=== PATIENT | female | born 1965 | race Caucasian/White ===

== ENCOUNTER → 2016-11-24 | Outpatient (CLI) | payer BC ==
[~2016-11-24] MED LIST: ASPI325T39 PO; CALC-214 PO; CAPT50TA PO; CLC100 PO; CLR10 PO; DLD25PCA IV; DRGTP25 TD; HYDR-5688 PO; LORA-741 PO; MRLP17 PO; MULT1TAB22 PO; NRV/10 PO; OMEP20CA9 PO; OPTOPS OPB; PRT40 PO; SNK PO; TRAM-10 PO; ULT50 PO; ZNTT/150 PO
[2016-11-24 16:23] LABS: BASO % 0.5 %; BASO ABS # 0.02 K/uL (0-0.2); COMPLETE YES; HEMATOCRIT 38.3 % (37-47); LYMPH % 39.7 %; LYMPH ABS # 1.76 K/uL (1.2-3.4); MEAN CORPUSCULAR HEMOGLOBIN 29.7 pg (25-34); MEAN CORPUSCULAR HGB CONC 33.7 g/dl (32-36); MEAN PLATELET VOLUME 9.1 fL (7.4-10.4); NEUT % 43.8 %; PLATELET COUNT 226 K/uL (130-400); RED BLOOD COUNT 4.35 M/uL (4.2-5.4); WHITE BLOOD COUNT 4.43 K/uL (4.8-10.8)
[2016-11-24 17:34] LABS: ALT/SGPT 33 U/L (12-78); AST/SGOT 23 U/L (15-37); BLOOD UREA NITROGEN 7 mg/dl (7-18); BUN/CREATININE RATIO 12.4 (10-20); CALCIUM 9.8 mg/dl (8.5-10.1); CARBON DIOXIDE 31 mmol/L (21-32); CHLORIDE 95 mmol/L (98-107); CREATININE 0.56 mg/dl (0.60-1.20); GLUCOSE 82 mg/dl (70-99); POTASSIUM 3.5 mmol/L (3.5-5.1); SODIUM 134 mmol/L (136-145)
[2016-11-24 17:37] LABS: ALB/GLOB RATIO 1.1 (0.9-2); ALKALINE PHOSPHATASE 121 U/L (45-117)
== END | disposition home or self-care (01) ==
LOC: C.LAB1850 15:35
PROVIDERS: ATTEND Obstetrics & Gynecology Gynecologic Oncology
DX: C57.01 Malignant neoplasm of right fallopian tube (principal)

== ENCOUNTER → 2016-12-01 | Outpatient (CLI) | payer BC ==
[2016-12-01 15:04] LABS: BASO % 0.2 %; BASO ABS # 0.01 K/uL (0-0.2); COMPLETE YES; EOS % 0.7 %; HEMATOCRIT 37.4 % (37-47); IG% 0.2 %; LYMPH % 41.4 %; MEAN CORPUSCULAR HEMOGLOBIN 29.7 pg (25-34); MEAN CORPUSCULAR HGB CONC 34.5 g/dl (32-36); MEAN PLATELET VOLUME 9.2 fL (7.4-10.4); MONO % 4.1 %; NEUT % 53.4 %; PLATELET COUNT 176 K/uL (130-400); RED BLOOD COUNT 4.35 M/uL (4.2-5.4); WHITE BLOOD COUNT 4.35 K/uL (4.8-10.8)
[2016-12-01 15:18] LABS: ALT/SGPT 29 U/L (12-78); BLOOD UREA NITROGEN 12 mg/dl (7-18); BUN/CREATININE RATIO 24.5 (10-20); CALCIUM 9.5 mg/dl (8.5-10.1); CARBON DIOXIDE 28 mmol/L (21-32); CHLORIDE 94 mmol/L (98-107); CREATININE 0.49 mg/dl (0.60-1.20); GLUCOSE 104 mg/dl (70-99); MAGNESIUM 1.7 mg/dl (1.8-2.4); POTASSIUM 3.2 mmol/L (3.5-5.1); SODIUM 132 mmol/L (136-145)
[2016-12-01 15:21] LABS: ALB/GLOB RATIO 1.1 (0.9-2); ALKALINE PHOSPHATASE 129 U/L (45-117); AST/SGOT 20 U/L (15-37)
== END | disposition home or self-care (01) ==
LOC: C.LAB1850 14:04
PROVIDERS: ATTEND Obstetrics & Gynecology Gynecologic Oncology
DX: C57.00 Malignant neoplasm of unspecified fallopian tube (principal)

== ENCOUNTER → 2016-12-08 | Outpatient (CLI) | payer BC ==
[2016-12-08 16:41] LABS: HEMATOCRIT 38.2 % (37-47); MEAN CELL VOLUME 85.8 fL (80-100); MEAN CORPUSCULAR HGB CONC 33.8 g/dl (32-36); MEAN PLATELET VOLUME 9.5 fL (7.4-10.4); PLATELET COUNT 170 K/uL (130-400); RED BLOOD COUNT 4.45 M/uL (4.2-5.4); WHITE BLOOD COUNT 3.83 K/uL (4.8-10.8)
[2016-12-08 16:58] LABS: ALT/SGPT 29 U/L (12-78); BLOOD UREA NITROGEN 11 mg/dl (7-18); BUN/CREATININE RATIO 20.4 (10-20); CALCIUM 9.1 mg/dl (8.5-10.1); CARBON DIOXIDE 31 mmol/L (21-32); CHLORIDE 95 mmol/L (98-107); CREATININE 0.54 mg/dl (0.60-1.20); GLUCOSE 83 mg/dl (70-99); MAGNESIUM 1.9 mg/dl (1.8-2.4); POTASSIUM 3.4 mmol/L (3.5-5.1); SODIUM 134 mmol/L (136-145)
[2016-12-08 17:01] LABS: ALB/GLOB RATIO 1.2 (0.9-2); ALKALINE PHOSPHATASE 125 U/L (45-117); AST/SGOT 19 U/L (15-37)
== END | disposition home or self-care (01) ==
LOC: C.LAB1850 15:48
PROVIDERS: ATTEND Obstetrics & Gynecology Gynecologic Oncology
DX: C57.00 Malignant neoplasm of unspecified fallopian tube (principal)

== ENCOUNTER → 2016-12-21 | Outpatient (CLI) | payer BC | END | disposition home or self-care (01) | LOC: C.LAB1850 14:21 | PROVIDERS: ATTEND Obstetrics & Gynecology Gynecologic Oncology | DX: C57.00 Malignant neoplasm of unspecified fallopian tube (principal) ==

== ENCOUNTER → 2016-12-22 | Outpatient (CLI) | payer BC ==
[2016-12-22 16:45] LABS: BASO % 0.2 %; BASO ABS # 0.01 K/uL (0-0.2); COMPLETE YES; EOS % 2.1 %; HEMATOCRIT 35.5 % (37-47); LYMPH % 48.4 %; LYMPH ABS # 2.03 K/uL (1.2-3.4); MEAN CELL VOLUME 86.4 fL (80-100); MEAN CORPUSCULAR HEMOGLOBIN 29.2 pg (25-34); MEAN CORPUSCULAR HGB CONC 33.8 g/dl (32-36); MEAN PLATELET VOLUME 9.3 fL (7.4-10.4); MONO % 15.8 %; NEUT % 33.5 %; PLATELET COUNT 124 K/uL (130-400); RED BLOOD COUNT 4.11 M/uL (4.2-5.4); WHITE BLOOD COUNT 4.19 K/uL (4.8-10.8)
[2016-12-22 17:08] LABS: ALT/SGPT 27 U/L (12-78); AST/SGOT 15 U/L (15-37); BLOOD UREA NITROGEN 10 mg/dl (7-18); BUN/CREATININE RATIO 16.9 (10-20); CALCIUM 9.3 mg/dl (8.5-10.1); CARBON DIOXIDE 28 mmol/L (21-32); CHLORIDE 99 mmol/L (98-107); CREATININE 0.58 mg/dl (0.60-1.20); GLUCOSE 91 mg/dl (70-99); MAGNESIUM 1.7 mg/dl (1.8-2.4); POTASSIUM 3.7 mmol/L (3.5-5.1); SODIUM 136 mmol/L (136-145)
[2016-12-22 17:10] LABS: ALB/GLOB RATIO 1.1 (0.9-2); ALKALINE PHOSPHATASE 113 U/L (45-117)
== END | disposition home or self-care (01) ==
LOC: C.LAB1850 15:37
PROVIDERS: ATTEND Obstetrics & Gynecology Gynecologic Oncology
DX: C57.00 Malignant neoplasm of unspecified fallopian tube (principal)

== ENCOUNTER → 2016-12-29 | Outpatient (CLI) | payer BC ==
[2016-12-29 16:39] LABS: HEMATOCRIT 36.4 % (37-47); MEAN CELL VOLUME 86.9 fL (80-100); MEAN CORPUSCULAR HEMOGLOBIN 29.4 pg (25-34); MEAN CORPUSCULAR HGB CONC 33.8 g/dl (32-36); MEAN PLATELET VOLUME 8.9 fL (7.4-10.4); PLATELET COUNT 187 K/uL (130-400); RED BLOOD COUNT 4.19 M/uL (4.2-5.4); WHITE BLOOD COUNT 3.24 K/uL (4.8-10.8)
[2016-12-29 16:45] LABS: ALT/SGPT 33 U/L (12-78); AST/SGOT 19 U/L (15-37); BLOOD UREA NITROGEN 11 mg/dl (7-18); BUN/CREATININE RATIO 20.5 (10-20); CALCIUM 9.3 mg/dl (8.5-10.1); CARBON DIOXIDE 31 mmol/L (21-32); CHLORIDE 97 mmol/L (98-107); CREATININE 0.54 mg/dl (0.60-1.20); GLUCOSE 89 mg/dl (70-99); MAGNESIUM 1.8 mg/dl (1.8-2.4); POTASSIUM 3.7 mmol/L (3.5-5.1); SODIUM 136 mmol/L (136-145)
[2016-12-29 16:47] LABS: ALB/GLOB RATIO 1.1 (0.9-2); ALKALINE PHOSPHATASE 126 U/L (45-117)
[2016-12-29 17:19] LABS: BASO % 0.6 %; BASO ABS # 0.02 K/uL (0-0.2); COMPLETE YES; EOS % 0.9 %; LYMPH % 59.3 %; LYMPH ABS # 1.92 K/uL (1.2-3.4); MONO % 5.9 %; NEUT % 33.3 %
== END | disposition home or self-care (01) ==
LOC: C.LAB1850 15:29
PROVIDERS: ATTEND Obstetrics & Gynecology Gynecologic Oncology
DX: C57.00 Malignant neoplasm of unspecified fallopian tube (principal)

== ENCOUNTER → 2017-01-18 | Outpatient (CLI) | payer BC | END | disposition home or self-care (01) | LOC: C.LAB1850 15:29 | PROVIDERS: ATTEND Obstetrics & Gynecology Gynecologic Oncology | DX: C57.00 Malignant neoplasm of unspecified fallopian tube (principal) ==

== ENCOUNTER → 2017-02-11 | Outpatient (CLI) | payer BC ==
--- NOTE | 2017-02-11 16:29 | MAMMOGRAPHY REPORT ---
BILATERAL DIGITAL SCREENING MAMMOGRAM TOMOSYNTHESIS WITH CAD: 02/11/2017 CLINICAL HISTORY: Routine screening. Patient has no complaints. TECHNIQUE: Breast tomosynthesis in addition to standard 2D mammography was performed. Current study was also evaluated with a Computer Aided Detection (CAD) system. COMPARISON: Comparison is made to exams dated: 02/04/2016 mammogram, 01/15/2015 mammogram, 01/11/2014 mammogram, 01/10/2013 mammogram, 12/10/2011 mammogram, and 11/16/2010 mammogram - [facility]. BREAST COMPOSITION: There are scattered areas of fibroglandular density in both breasts. FINDINGS: No suspicious masses, calcifications, or areas of architectural distortion are noted in e ither breast. There has been no significant interval change compared to prior exams. A biopsy marke r clip is again noted in the right medial breast. IMPRESSION: ACR BI-RADS CATEGORY 2: BENIGN There is no mammographic evidence of malignancy. A 1 year screening mammogram is recommended. The p atient will receive written notification of the results. Approximately 10% of breast cancers are not detected with mammography. A negative mammographic repor t should not delay biopsy if a clinically suggestive mass is present. Merry Gifford M.D. /:02/11/2017 14:08:41 Crane Rigger: Gayla Hill, [facility] letter sent: Normal 1/2 BI-RADS Code: ACR BI-RADS Category 2: Benign
== END | disposition home or self-care (01) ==
LOC: C.MAMM 13:38
PROVIDERS: ATTEND Obstetrics & Gynecology
DX: Z12.31 Encounter for screening mammogram for malignant neoplasm of breast (principal)

== ENCOUNTER → 2017-02-15 | Outpatient (CLI) | payer BC | END | disposition home or self-care (01) | LOC: C.LAB1850 15:31 | PROVIDERS: ATTEND Obstetrics & Gynecology Gynecologic Oncology | DX: C57.00 Malignant neoplasm of unspecified fallopian tube (principal) ==

== ENCOUNTER 2017-06-23 19:33 | Emergency (ER) | payer BC ==
[~2017-06-23] VITALS: Ht 167.6 cm; Wt 88.7 kg
[~2017-06-23 19:33] MED LIST changes: -CALC-214 PO; -CAPT50TA PO; -CLC100 PO; -DLD25PCA IV; -DRGTP25 TD; -HYDR-5688 PO; -MRLP17 PO; -MULT1TAB22 PO; -NRV/10 PO; -PRT40 PO; -SNK PO; -TRAM-10 PO; -ULT50 PO; -ZNTT/150 PO
[2017-06-23 19:34] VITALS: TEMP 36.8; Ht 167.6 cm; Wt 88.7 kg
[2017-06-23] MEDS ORDERED: SODIUM CHLORIDE 0.9% 1000ML 1,000 ML IV STA (19:56)
--- NOTE | 2017-06-23 20:03 | EMERGENCY ROOM VISIT NOTE ---
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 Patient states she has been having general abdominal pain for the past 3 weeks, her oncologist told her that she was developing fluid in her abdomen secondary to her cancer, and she is scheduled this Tuesday to have the fluid drained. The patient states that today she began to have worsening abdominal pain and feeling tired. She states she has been more constipated than usual and has not moved her bowels for 2 days, she attributes this to recently starting to take tramadol for pain, and she notes that she has not been taking any stool softeners. She denies any nausea or vomiting, but states she has no appetite and has not been eating or drinking much for the past few days. Patient states she called her oncologist today regarding her worsening pain, and they told her to go to the ER to to have a bowel obstruction ruled out. Patient denies any history of bowel instruction, but states she has had twisted bowel once before. She denies any fevers or chills, chest pain, shortness of breath, back pain, diarrhea, blood in the stool, dysuria or urinary frequency. Review of Systems A complete 10 point review of systems was reviewed with the patient with pertinent positives and negatives as per history of present illness. All else were negative. Past Medical/Surgical History Medical Problems: (1) Aneurysm (2) HTN (hypertension) Surgical Problems: (1) H/O tubal ligation Family History FH: HTN (hypertension) FH: cancer Social History Smoking Status: Never Smoker Marital Status: Housing Status: lives with family Occupation Status: employed Current/Historical Medications Scheduled Amlodipine Besylate (Amlodipine Besylate), 10 MG PO HS Calcium W/ Magnesium (Calcium & Magnesium), 1 TAB PO DAILY Captopril/Hctz (Capozide), 1 TAB PO BID Multiple Vitamins W/ Minerals (One Daily For Women), 1 TAB PO DAILY Ranitidine (Zantac), 150 MG PO BID Scheduled PRN Tramadol (Ultram), 50 MG PO Q4H PRN for Pain Physical Exam Vital Signs Date Time Temp Pulse Resp B/P (MAP) Pulse Ox O2 Delivery O2 Flow Rate FiO2 06/23/17 22:34 80 16 144/95 98 Room Air 06/23/17 19:34 36.8 110 18 143/87 96 Room Air Physical Exam CONSTITUTIONAL: No acute distress. Mildly dehydrated, but otherwise well appearing and well nourished. Alert and oriented X 4 with normal affect. HEENT: Normocephalic, atraumatic. Pupils equal, round and reactive to light, EOMI. TMs normal. Pharynx normal. Tacky mucous membranes. NECK: Supple, full active range of motion without discomfort. RESPIRATORY: Clear to auscultation bilaterally with no wheezing, crackles, rhonchi or stridor. Diminished in the bases. Equal expansion bilaterally. CARDIOVASCULAR: Regular rate and rhythm with no murmurs, rubs or gallops. Normal peripheral perfusion. No edema. GASTROINTESTINAL: Abdomen is diffusely tender, most tender in periumbilical area. No rebound tenderness, no guarding. Soft, mildly distended. Bowel sounds normal and present in all quadrants. No CVA tenderness. MUSCULOSKELETAL: Full range of motion of all joints without discomfort. INTEGUMENTARY: No rash or other significant dermatologic conditions noted. NEUROLOGIC: Cranial nerves II-XII grossly intact. No focal neurologic deficits noted. Medical Decision & Procedures ER Provider Diagnostic Interpretation: CT ABD/PELVIS IV AND ORAL CONT CLINICAL HISTORY: Acute abdominal pain. Possible small bowel obstruction. Follow-up in 2 carcinoma. COMPARISON STUDY: PET/CT scan dated 10/10/2016 TECHNIQUE: Following the IV administration of 116 mL of Optiray-320, CT scan of the abdomen and pelvis was performed from the lung bases to the proximal femurs. Images are reviewed in the axial, sagittal, and coronal planes. IV contrast was administered without complication. A dose lowering technique was utilized adhering to the principles of ALARA. CT DOSE: 771.51 mGy.cm FINDINGS: Lower chest: There is a right pleural effusion with associated right basilar atelectasis. There are minimal right basilar atelectatic changes. Liver: The contrast-enhanced liver is normal in size, contour, and attenuation. There is no intrahepatic biliary ductal dilatation. The hepatic veins and portal veins are patent. Gallbladder: Unremarkable. Spleen: Normal in size and attenuation. Pancreas: Unremarkable. Adrenal glands: Unremarkable. Kidneys: There is symmetric renal cortical enhancement. The kidneys are normal in size without hydronephrosis. Bowel: There are no transition zones to indicate bowel obstruction. Peritoneum: There is ascites. There is omental and peritoneal nodularity, consistent with extensive carcinomatosis. There is a small fat-containing ventral hernia containing soft tissue nodules suspicious for neoplastic foci. Vasculature: The abdominal aorta is normal in course and caliber. Adenopathy: None. Pelvic viscera: The uterus is surgically absent. There is pelvic peritoneal nodularity and thickening. Skeletal structures: No destructive osseous lesions are seen. IMPRESSION: 1. CT evidence of extensive abdominal carcinomatosis with ascites 2. No evidence of bowel obstruction. No evidence of free air 3. Right pleural effusion with right lower lobe atelectasis Laboratory Results 06/23/17 20:20 Red Blood Count 3.85, Mean Corpuscular Volume 88.8, Mean Corpuscular Hemoglobin 29.6, Mean Corpuscular Hemoglobin Concent 33.3, Mean Platelet Volume 8.5, Neutrophils (%) (Auto) 53.9, Lymphocytes (%) (Auto) 26.6, Monocytes (%) (Auto) 17.2, Eosinophils (%) (Auto) 1.6, Basophils (%) (Auto) 0.5, Neutrophils # (Auto ) 2.31, Lymphocytes # (Auto) 1.14, Monocytes # (Auto) 0.74, Eosinophils # (Auto ) 0.07, Basophils # (Auto) 0.02 06/23/17 20:20 Test 06/23/17 20:20 06/23/17 21:00 06/23/17 21:08 White Blood Count 4.29 K/uL (4.8-10.8) Red Blood Count 3.85 M/uL (4.2-5.4) Hemoglobin 11.4 g/dL (12.0-16.0) Hematocrit 34.2 % (37-47) Mean Corpuscular Volume 88.8 fL (80-100) Mean Corpuscular Hemoglobin 29.6 pg (25-34) Mean Corpuscular Hemoglobin Concent 33.3 g/dl (32-36) Platelet Count 252 K/uL (130-400) Mean Platelet Volume 8.5 fL (7.4-10.4) Neutrophils (%) (Auto) 53.9 % Lymphocytes (%) (Auto) 26.6 % Monocytes (%) (Auto) 17.2 % Eosinophils (%) (Auto) 1.6 % Basophils (%) (Auto) 0.5 % Neutrophils # (Auto) 2.31 K/uL (1.4-6.5) Lymphocytes # (Auto) 1.14 K/uL (1.2-3.4) Monocytes # (Auto) 0.74 K/uL (0.11-0.59) Eosinophils # (Auto) 0.07 K/uL (0-0.5) Basophils # (Auto) 0.02 K/uL (0-0.2) RDW Standard Deviation 45.2 fL (36.4-46.3) RDW Coefficient of Variation 13.8 % (11.5-14.5) Immature Granulocyte % (Auto) 0.2 % Immature Granulocyte # (Auto) 0.01 K/uL (0.00-0.02) Anion Gap 7.0 mmol/L (3-11) Est Creatinine Clear Calc Drug Dose 165.8 ml/min Estimated GFR () 133.6 Estimated GFR (Non- 115.2 BUN/Creatinine Ratio 18.1 (10-20) Calcium Level 8.9 mg/dl (8.5-10.1) Total Bilirubin 1.0 mg/dl (0.2-1) Direct Bilirubin 0.2 mg/dl (0-0.2) Aspartate Amino Transf (AST/SGOT) 19 U/L (15-37) Alanine Aminotransferase (ALT/SGPT) 26 U/L (12-78) Alkaline Phosphatase 105 U/L (45-117) Total Protein 6.8 gm/dl (6.4-8.2) Albumin 3.4 gm/dl (3.4-5.0) Lipase 69 U/L (73-393) Urine Color YELLOW Urine Appearance CLEAR (CLEAR) Urine pH 7.0 (4.5-7.5) Urine Specific [place] 1.006 (1.000-1.030) Urine Protein NEG (NEG) Urine Glucose (UA) NEG (NEG) Urine Ketones NEG (NEG) Urine Occult Blood NEG (NEG) Urine Nitrite NEG (NEG) Urine Bilirubin NEG (NEG) Urine Urobilinogen NEG (NEG) Urine Leukocyte Esterase NEG (NEG) Bedside Lactic Acid Venous 0.59 mmol/L (0.90-1.70) Medications Administered Medications (Trade) Dose Ordered Sig/Luci Route Start Time Stop Time Status Last Admin Dose Admin Sodium Chloride 1,000 ml @ 999 mls/hr Q1H1M STAT IV 06/23/17 19:56 06/23/17 20:56 DC 06/23/17 20:55 999 MLS/HR ECG Indication: abdominal pain, weakness Rate (beats per minute): 100 Rhythm: normal sinus Findings: no acute ischemic change, no ectopy Change: no significant change (when compared to previous EKG from 12/25/2003) Medical Decision CC: Patient presenting with complaint of abdominal pain Interpretation of Labs: Mild leukopenia, mild anemia, these appear at baseline, normal platelets, slight hyponatremia/hypochloremia, no other significant electrolyte abnormalities, normal renal function, normal liver enzymes and lipase, normal lactic acid. No UTI. Differential Diagnosis: Includes, but not limited to small bowel obstruction, adhesions, ileus, constipation, ascites, among others. Medication Reconciliation: I attest that I have personally reviewed the patient' s current medication list. Vital signs review: I reviewed the patient's vital signs and interpret them as follows: T: Afebrile; BP: Hypertensive; HR: Tachycardic, resolved on reassessment; RR: Within normal limits; Pulse Ox: Within normal limits on room air. Blood pressure screening: The patient was found to have an elevated blood pressure and was referred to their primary doctor for recheck and further treatment. Summary: Patient was evaluated at bedside, history of physical exam performed. Patient is alert and in no distress, resting calmly in the stretcher. Abdomen is soft, slightly distended with normal bowel sounds throughout. Diffusely tender to palpation. Patient also appears mildly dehydrated, and she does state she has not been drinking well yesterday or today. Per the patient, she is primarily here to rule out small bowel obstruction per request of her oncologist. She has no other significant complaints. Orders were placed at bedside for labs, UA, IV fluid bolus for hydration, CT abdomen and pelvis with IV and oral contrast to evaluate for small bowel obstruction. Patient discussed with Dr. Angulo, who agrees with my assessment and plan. Labs reviewed as above, appear consistent with baseline and no significant abnormalities. EKG shows normal sinus rhythm with no acute ischemic changes and unchanged from previous EKG. CT abdomen/pelvis negative for small bowel obstruction or any other acute finding. Patient reassessed multiple times throughout ED stay, she remains well appearing and in no distress. Tachycardia is resolved after IV fluids on reassessment. Patient updated on all results and plan for discharge home, and encouraged to keep her scheduled appointment on Tuesday with her oncologist. Patient given strict return precautions should her symptoms worsen, she verbalized understanding. Patient discharged home in stable condition ambulatory. Impression Primary Impression: Abdominal pain Departure Information Dispostion Home / Self-Care Condition GOOD Referrals Linda Stanley MD (PCP) Patient Instructions ED Constipation, My [facility] Additional Instructions You have been treated in the Emergency Department your Abdominal Pain. Laboratory results and imaging studies have ruled out any emergent causes for your abdominal pain which would warrant admission or surgery. You may continue taking your prescribed tramadol as needed for pain. You should take a stool softener such as Colace daily while you're taking the tramadol to help prevent constipation. If you become constipated, you may take MiraLAX once a day until your stools return to normal. Drink plenty of water and stay well hydrated. Keep your scheduled appointment on Tuesday, and follow closely with your PCP and oncologist regarding her symptoms. Return to the emergency department if your symptoms persist despite treatment plan outlined above or if the following symptoms occur: Severe worsening abdominal pain, fevers or chills, severe nausea or persistent vomiting, blood in your stool or urine, dizziness or passing out, or any other concerns. Problem Qualifiers Primary Impression: Abdominal pain Abdominal location: generalized Qualified Codes: R10.84 - Generalized abdominal pain
[2017-06-23] MEDS ORDERED: TRAM-10 PO (20:18)
[2017-06-23 20:30] LABS: BASO % 0.5 %; BASO ABS # 0.02 K/uL (0-0.2); COMPLETE YES; EOS % 1.6 %; HEMATOCRIT 34.2 % (37-47); IG% 0.2 %; LYMPH % 26.6 %; LYMPH ABS # 1.14 K/uL (1.2-3.4); MEAN CELL VOLUME 88.8 fL (80-100); MEAN CORPUSCULAR HEMOGLOBIN 29.6 pg (25-34); MEAN CORPUSCULAR HGB CONC 33.3 g/dl (32-36); MEAN PLATELET VOLUME 8.5 fL (7.4-10.4); MONO % 17.2 %; NEUT % 53.9 %; PLATELET COUNT 252 K/uL (130-400); RED BLOOD COUNT 3.85 M/uL (4.2-5.4); WHITE BLOOD COUNT 4.29 K/uL (4.8-10.8)
[2017-06-23 20:49] LABS: BUN/CREATININE RATIO 18.1 (10-20); CALCIUM 8.9 mg/dl (8.5-10.1); CREATININE 0.44 mg/dl (0.60-1.20); POTASSIUM 3.5 mmol/L (3.5-5.1)
[2017-06-23 21:20] LABS: URINE APPEARANCE CLEAR (CLEAR); URINE BILIRUBIN NEG (NEG); URINE COLOR YELLOW; URINE NITRITE NEG (NEG); URINE SPECIFIC GRAVITY 1.006 (1.000-1.030); UROBILINOGEN NEG (NEG); ZZUR CULT IF INDIC CLEAN CATCH NO
[2017-06-23 21:28] LABS: MANUAL MICROSCOPIC REQUIRED? NO; REVIEW REQ? NO
[2017-06-23] MEDS ORDERED: OPTIRAY 320 IV PRN (22:15)
--- NOTE | 2017-06-23 23:00 | DIAGNOSTIC IMAGING REPORT ---
CT ABD/PELVIS IV AND ORAL CONT CLINICAL HISTORY: Acute abdominal pain. Possible small bowel obstruction. Follow-up in 2 carcinoma. COMPARISON STUDY: PET/CT scan dated 10/10/2016 TECHNIQUE: Following the IV administration of 116 mL of Optiray-320, CT scan of the abdomen and pelvis was performed from the lung bases to the proximal femurs. Images are reviewed in the axial, sagittal, and coronal planes. IV contrast was administered without complication. A dose lowering technique was utilized adhering to the principles of ALARA. CT DOSE: 771.51 mGy.cm FINDINGS: Lower chest: There is a right pleural effusion with associated right basilar atelectasis. There are minimal right basilar atelectatic changes. Liver: The contrast-enhanced liver is normal in size, contour, and attenuation. There is no intrahepatic biliary ductal dilatation. The hepatic veins and portal veins are patent. Gallbladder: Unremarkable. Spleen: Normal in size and attenuation. Pancreas: Unremarkable. Adrenal glands: Unremarkable. Kidneys: There is symmetric renal cortical enhancement. The kidneys are normal in size without hydronephrosis. Bowel: There are no transition zones to indicate bowel obstruction. Peritoneum: There is ascites. There is omental and peritoneal nodularity, consistent with extensive carcinomatosis. There is a small fat-containing ventral hernia containing soft tissue nodules suspicious for neoplastic foci. Vasculature: The abdominal aorta is normal in course and caliber. Adenopathy: None. Pelvic viscera: The uterus is surgically absent. There is pelvic peritoneal nodularity and thickening. Skeletal structures: No destructive osseous lesions are seen. IMPRESSION: 1. CT evidence of extensive abdominal carcinomatosis with ascites 2. No evidence of bowel obstruction. No evidence of free air 3. Right pleural effusion with right lower lobe atelectasis Electronically signed by: Kervin Valdivia M.D. 06/23/2017 10:58 PM Dictated Date/Time: 06/23/2017 10:54 PM
[2017-06-23 23:23] VITALS: BP 137/87; PULSE 98; O2SAT 96
[2017-07-03] MEDS ORDERED: HYDR-5688 PO (11:45)
[2017-07-05] MEDS ORDERED: CALC-214 PO (01:59)
[2017-07-15] MEDS ORDERED: PRT40 PO (12:45)
[2017-07-15] MEDS ORDERED: CLC100 PO (12:45)
[2017-07-15] MEDS ORDERED: SNK PO (12:45)
[2017-07-15] MEDS ORDERED: DRGTP25 TD (12:45)
[2017-07-15] MEDS ORDERED: DLD25PCA IV (12:45)
[2017-07-15] MEDS ORDERED: MRLP17 PO (12:45)
== END 2017-06-23 23:23 | disposition home or self-care (01) ==
LOC: C.EDB 19:34
DX: R10.9 Unspecified abdominal pain (principal); I10 Essential (primary) hypertension; Z98.51 Tubal ligation status; Z79.899 Other long term (current) drug therapy; Z82.49 Family history of ischemic heart disease and other diseases of the circulatory system; Z80.9 Family history of malignant neoplasm, unspecified

== ENCOUNTER 2017-06-27 12:37 | Day surgery (SDC) | payer BC ==
[~2017-06-27] VITALS: Ht 167.6 cm; Wt 88.0 kg
[~2017-06-27 12:37] MED LIST changes: -ASPI325T39 PO; -CLR10 PO; -LORA-741 PO; -OMEP20CA9 PO; -OPTOPS OPB; +TRAM-10 PO
[2017-06-27 12:59] VITALS: BP 163/89; PULSE 105; TEMP 36.9; O2SAT 96; Ht 167.6 cm; Wt 88.0 kg
--- NOTE | 2017-06-27 14:50 | Discharge Instructions ---
Discharge Instructions Procedure Procedure Date: Jun 27, 2017. Reason for visit: Fallopian Tube Ca, Ascites. Discharge Discharge Date: Jun 27, 2017. Discharge Diagnosis: same Instructions Activity Recommendations: No limitations Return to School/Work: no limitations Recommended Home Diet: Resume Previous Diet Provider Instructions: ACTIVITY RECOMMENDATIONS: * Rest today. * Resume regular activity in one day. MEDICATIONS: * May take Tylenol or Ibuprofen as needed for pain. DIET: * Resume previous diet. SPECIAL CARE INSTRUCTIONS: Call your doctor if: * Temperature above 101 degrees F. * Pain not relieved by pain medicine ordered. * Increased drainage or redness from incision. * Notify your doctor with any questions or concerns. Call your doctor or go to the nearest Emergency Department if you experience: * Increased chest pain or shortness of breath. FOLLOW UP VISIT: Follow-up with Referring Physician as scheduled. Allergies Coded Allergies: [place] (Verified Allergy, Severe, Swelling of face,throat,tongue and under the arms., 06/27/17) Reported by PT. Polyethylene Glycol (Unverified Allergy, Unknown, HIVES, 06/27/17) Prochlorperazine (Unverified Allergy, Unknown, HIVES, 06/27/17) Uncoded Allergies: ARTURO (Allergy, Severe, Swelling of face,throat,tongue and under the arms., 10/01/14) Reported by PT TAPE (Allergy, Unknown, 01/03/03) [place] Recommendations: Call your doctor if: * Temperature above 101 degrees * Pain not relieved by pain medicine ordered * There is increased drainage or redness from any incision * You have any unanswered questions or concerns. Your Doctors Instructions noted above were prepared by provider Ryan Davis. Patient Signature Section: Patient Instructions Signature Page Sherry Ferro Patient (or Guardian) Signature/Date: I have read and understand the instructions given to me by my caregivers. Caregiver/RN/Doctor Signature/Date: The above-named patient and/or guardian has received patient instructions on this date. + Original Patient Signature Page (only) stays with chart. Please make copy for patient.
[2017-06-27 14:55] VITALS: BP 107/86; PULSE 88; TEMP 36.6; O2SAT 97
--- NOTE | 2017-06-27 15:12 | DIAGNOSTIC IMAGING REPORT ---
ULTRASOUND-GUIDED THERAPEUTIC PARACENTESIS: HISTORY: Ascites. Fallopian tube cancer. Procedure: The procedure and its risks, benefits and alternatives were discussed with the patient and written informed consent was obtained. Preliminary ultrasound of the abdomen was performed to determine a safe needle entry site. The right lower quadrant was prepped and draped in the usual sterile fashion. 1% Lidocaine was used for local anesthesia. A paracentesis needle-sheath was inserted into the peritoneal space using ultrasound guidance. The needle was removed and the sheath was connected to tubing and a vacuum suction device. A total of 2.5 liters of yellow ascites was aspirated. The sheath was removed and a sterile dressing applied. The patient tolerated the procedure well and there were no immediate complications. IMPRESSION: Ultrasound-guided therapeutic paracentesis with aspiration of 2.5 liters of ascites. Electronically signed by: Ryan Davis M.D. 06/27/2017 3:11 PM Dictated Date/Time: 06/27/2017 3:11 PM
[2017-06-27] MEDS ORDERED: TRAMADOL HCL 50 MG TAB ONE (15:20)
[2017-06-27 15:24] VITALS: BP 132/83; PULSE 101; TEMP 36.8; O2SAT 94
[2017-06-27] MEDS ORDERED: NURSING VERBAL MED ORDER ONE (15:30)
[2017-06-27 15:46] VITALS: BP 129/76; PULSE 101; TEMP 36.9; O2SAT 94
[2017-07-03] MEDS ORDERED: HYDR-5688 PO (11:45)
[2017-07-05] MEDS ORDERED: CALC-214 PO (01:59)
[2017-07-15] MEDS ORDERED: CLC100 PO (12:45)
[2017-07-15] MEDS ORDERED: PRT40 PO (12:45)
[2017-07-15] MEDS ORDERED: SNK PO (12:45)
[2017-07-15] MEDS ORDERED: DLD25PCA IV (12:45)
[2017-07-15] MEDS ORDERED: DRGTP25 TD (12:45)
[2017-07-15] MEDS ORDERED: MRLP17 PO (12:45)
== END 2017-06-27 16:00 | disposition home or self-care (01) ==
LOC: C.ACU 12:37
PROVIDERS: ATTEND Internal Medicine Hematology
DX: R18.8 Other ascites (principal); C57.00 Malignant neoplasm of unspecified fallopian tube

== ENCOUNTER 2017-07-02 15:24 | Observation (INO) | payer BC ==
[~2017-07-02] VITALS: Ht 167.6 cm; Wt 87.0 kg
[2017-07-02] MEDS ORDERED: ULT50 PO (15:48)
[2017-07-02] MEDS ORDERED: ONDANSETRON INJ 2 MG/ML 2 ML VIAL IV STA ×2 (16:01→19:28)
[2017-07-02] MEDS ORDERED: MoRPHine SULFATE 4 MG/ML 1 ML CARP\\VIAL IV STA (16:01)
[2017-07-02] MEDS ORDERED: SODIUM CHLORIDE 0.9% 1000ML 1,000 ML IV STA ×2 (16:01→17:18)
[2017-07-02 16:03] LABS: BASO % 0.2 %; BASO ABS # 0.02 K/uL (0-0.2); COMPLETE YES; EOS % 0.5 %; HEMATOCRIT 33.2 % (37-47); IG% 0.2 %; LYMPH % 11.2 %; MEAN CELL VOLUME 86.9 fL (80-100); MEAN CORPUSCULAR HEMOGLOBIN 29.6 pg (25-34); MEAN PLATELET VOLUME 8.5 fL (7.4-10.4); MONO % 12.1 %; NEUT % 75.8 %; PLATELET COUNT 384 K/uL (130-400); RED BLOOD COUNT 3.82 M/uL (4.2-5.4); WHITE BLOOD COUNT 8.02 K/uL (4.8-10.8)
[2017-07-02 16:21] LABS: BUN/CREATININE RATIO 15.9 (10-20); CALCIUM 9.2 mg/dl (8.5-10.1); CREATININE 0.49 mg/dl (0.60-1.20); POTASSIUM 3.2 mmol/L (3.5-5.1)
[2017-07-02 16:48] LABS: PREG INTERNAL NEGATIVE QC NEG CLEAR BACKGROUND; PREG INTERNAL POSITIVE QC POS CONTROL LINE; URINE APPEARANCE CLEAR (CLEAR); URINE BILIRUBIN NEG (NEG); URINE COLOR DK YELLOW; URINE EPITHELIAL CELL AUTO >30 /lpf (0-5); URINE NITRITE NEG (NEG); URINE PH 6.5 (4.5-7.5); URINE SPECIFIC GRAVITY 1.024 (1.000-1.030); UROBILINOGEN NEG (NEG); ZZUR CULT IF INDIC CLEAN CATCH NO
[2017-07-02 17:03] LABS: MANUAL MICROSCOPIC REQUIRED? NO; REVIEW REQ? NO
[2017-07-02] MEDS ORDERED: OPTIRAY 320 IV PRN (17:15)
--- NOTE | 2017-07-02 17:34 | DIAGNOSTIC IMAGING REPORT ---
CT OF THE ABDOMEN AND PELVIS WITH CONTRAST CLINICAL HISTORY: Diffuse abdominal pain. Possible bowel obstruction. Fallopian tube carcinoma. COMPARISON STUDY: CT of the abdomen and pelvis June 23, 2017. TECHNIQUE: Following IV administration of 116 mL of Optiray-320, axial images of the abdomen and pelvis were obtained from the lung bases to the proximal femurs. Images were reviewed in the axial, sagittal, and coronal planes. IV contrast was administered without complication. A dose lowering technique was utilized adhering to the principles of ALARA. CT DOSE: 713.05 mGy.cm FINDINGS: Visualized portions of the lower chest demonstrate a moderate right pleural effusion and a small left pleural effusion. These are unchanged since exam of June 23, 2017. Extensive peritoneal carcinomatosis is again noted. This is similar to prior CT. The appearance of the liver, spleen, adrenal glands, kidneys and pancreas is unchanged. There is no hydronephrosis. There is no pneumatosis, free air or portal venous gas. A ventral hernia which contains ascites and tumor is again noted. A moderate amount of ascites is noted. There has been interval development of moderate extraperitoneal hemorrhage within the right anterior pelvis. A few hematomas are noted, largest of which measures 8 x 6.2 x 1.8 cm. This is new since CT of June 23, 2012. This hemorrhage is extraperitoneal. No active extravasation is identified. Major vasculature of the abdomen and pelvis is patent. There are no suspicious osseous lesions. IMPRESSION: 1. Interval development of moderate extraperitoneal hemorrhage within the right anterior pelvis with several hematomas located within and immediately posterior to the right rectus sheath, within the space of [place]. No active extravasation. Largest hematoma measures approximately 8 x 6.2 x 1.8 cm. Findings discussed with Dr. Henry at time of dictation. 2. No significant change in extensive peritoneal carcinomatosis with moderate ascites. No bowel obstruction. Electronically signed by: Dominic Carias M.D. 07/02/2017 5:32 PM Dictated Date/Time: 07/02/2017 5:18 PM
[2017-07-02] MEDS ORDERED: POTASSIUM CHLORIDE 10 MEQ TABCR PO STA (18:42)
[2017-07-02] MEDS ORDERED: MoRPHine SULFATE 10 MG/ML CARP/VIAL IV STA (19:28)
[2017-07-02] MEDS ORDERED: MoRPHine SULFATE 2 MG/ML CARP ONE (19:32)
[2017-07-02] MEDS ORDERED: MoRPHine SULFATE 4 MG/ML 1 ML CARP\\VIAL ONE (19:32)
--- NOTE | 2017-07-02 20:10 | History and Physical ---
History & Physical Date & Time of Service: Jul 02, 2017 at 19:56 Chief Complaint: Possible Bowel Blockage/Stomach Pain Primary Care Physician: Linda Stanley MD History of Present Illness Source: patient, spouse The patient arrives to the ED for intractable abdominal pain. She is s/p IR- guided therapeutic paracentesis for malignant ascites on 06/27/17. The patient has fallopian tube carcinoma. She states that her abdominal pain started several months ago, and that decision was recently made with her oncologist Dr. Varner to proceed with therapeutic paracentesis. She had the paracentesis done 5 days ago. However, she states that ever since then her pain has persisted. The pain is a fullness sensation, centrally, between the umbilicus and epigastrium. The pain occasionally radiates into the back. However, she did not know whether it was related to the recent procedure, or her chemotherapy, or constipation. She notes no issues with diarrhea. Has not had BM in 2 days. She has had a poor appetite which is her baseline for the past month. No fevers chills or sweats. Currently, no SOB, no chest pain, palpitations, or pre-syncope. Fallopian tube cancer diagnosed in March 2016. Currently having chemotherapy. Next cycle is July 26. Follows with Dr. Varner. Past Medical/Surgical History Medical Problems: (1) Splenic artery Aneurysm, surgically traeted Status: Resolved (2) HTN (hypertension) Status: Chronic Surgical Problems: (1) H/O tubal ligation Status: Resolved Hx of Hysterectomy 2017 Family History FH: HTN (hypertension) FH: cancer Social History Smoking Status: Never Smoker Smokeless Tobacco Use: No Alcohol Use: none Drug Use: none Marital Status: Housing status: lives with family Occupational Status: employed Immunizations History of Influenza Vaccine: Yes History of Tetanus Vaccine?: Yes History of Pneumococcal: Unknown History of Hepatitis B Vaccine: Unknown Multi-Drug Resistant Organisms History of MDRO: No Allergies Coded Allergies: [place] (Verified Allergy, Severe, Swelling of face,throat,tongue and under the arms., 06/27/17) Reported by PT. Polyethylene Glycol (Unverified Allergy, Unknown, HIVES, 06/27/17) Prochlorperazine (Unverified Allergy, Unknown, HIVES, 06/27/17) Uncoded Allergies: ARTURO (Allergy, Severe, Swelling of face,throat,tongue and under the arms., 10/01/14) Reported by PT TAPE (Allergy, Unknown, 01/03/03) Home Medications Scheduled Amlodipine Besylate (Amlodipine Besylate), 10 MG PO HS Calcium W/ Magnesium (Calcium & Magnesium), 1 TAB PO DAILY Captopril/Hctz (Capozide), 1 TAB PO BID Loratadine (Claritin), 10 MG PO DAILY Multiple Vitamins W/ Minerals (One Daily For Women), 1 TAB PO DAILY Ranitidine (Zantac), 150 MG PO BID Scheduled PRN Tramadol HCl (Tramadol HCl), 50 MG PO Q4H PRN for Pain Review of Systems A 10 point review of systems was negative unless stated above. Physical Exam Vital Signs Date Time Temp Pulse Resp B/P (MAP) Pulse Ox O2 Delivery O2 Flow Rate FiO2 07/02/17 19:44 122 21 146/97 97 07/02/17 17:26 102 18 135/94 96 Room Air 07/02/17 15:26 36.6 116 20 125/79 96 Room Air General Appearance: WD/WN, + mild distress Head: normocephalic, atraumatic Eyes: normal inspection, EOMI ENT: hearing grossly normal, pharynx normal Neck: supple, no adenopathy, no JVD Respiratory/Chest: lungs clear, no respiratory distress Cardiovascular: no gallop, no murmur, + tachycardia Abdomen/GI: normal bowel sounds, soft, + tenderness (RLQ tenderness without guarding or rigibidy), + pertinent finding (well healed midline laparotomy scar ; RLQ and suprapubic ecchymoses; no guarding or rigibidy;) Back: no CVA tenderness, no muscle spasm Extremities/Musculoskelatal: no calf tenderness, no pedal edema Neurologic/Psych: alert, normal mood/affect, oriented x 3 Skin: normal color, warm/dry, no rash Lymphatic: no adenopathy Diagnostics Laboratory Results Results Past 24 Hours Test 07/02/17 15:48 07/02/17 16:30 Range/Units White Blood Count 8.02 4.8-10.8 K/uL Red Blood Count 3.82 4.2-5.4 M/uL Hemoglobin 11.3 12.0-16.0 g/dL Hematocrit 33.2 37-47 % Mean Corpuscular Volume 86.9 80-100 fL Mean Corpuscular Hemoglobin 29.6 25-34 pg Mean Corpuscular Hemoglobin Concent 34.0 32-36 g/dl Platelet Count 384 130-400 K/uL Mean Platelet Volume 8.5 7.4-10.4 fL Neutrophils (%) (Auto) 75.8 % Lymphocytes (%) (Auto) 11.2 % Monocytes (%) (Auto) 12.1 % Eosinophils (%) (Auto) 0.5 % Basophils (%) (Auto) 0.2 % Neutrophils # (Auto) 6.07 1.4-6.5 K/uL Lymphocytes # (Auto) 0.90 1.2-3.4 K/uL Monocytes # (Auto) 0.97 0.11-0.59 K/uL Eosinophils # (Auto) 0.04 0-0.5 K/uL Basophils # (Auto) 0.02 0-0.2 K/uL RDW Standard Deviation 43.7 36.4-46.3 fL RDW Coefficient of Variation 13.8 11.5-14.5 % Immature Granulocyte % (Auto) 0.2 % Immature Granulocyte # (Auto) 0.02 0.00-0.02 K/uL Sodium Level 127 136-145 mmol/L Potassium Level 3.2 3.5-5.1 mmol/L Chloride Level 89 98-107 mmol/L Carbon Dioxide Level 31 21-32 mmol/L Anion Gap 7.0 3-11 mmol/L Blood Urea Nitrogen 8 7-18 mg/dl Creatinine 0.49 0.60-1.20 mg/dl Est Creatinine Clear Calc Drug Dose 147.5 ml/min Estimated GFR () 128.9 Estimated GFR (Non- 111.2 BUN/Creatinine Ratio 15.9 10-20 Random Glucose 113 70-99 mg/dl Calcium Level 9.2 8.5-10.1 mg/dl Total Bilirubin 1.1 0.2-1 mg/dl Direct Bilirubin 0.2 0-0.2 mg/dl Aspartate Amino Transf (AST/SGOT) 21 15-37 U/L Alanine Aminotransferase (ALT/SGPT) 20 12-78 U/L Alkaline Phosphatase 118 45-117 U/L Total Protein 7.1 6.4-8.2 gm/dl Albumin 3.2 3.4-5.0 gm/dl Lipase 60 73-393 U/L Urine Color DK YELLOW Urine Appearance CLEAR CLEAR Urine pH 6.5 4.5-7.5 Urine Specific [place] 1.024 1.000-1.030 Urine Protein TRACE NEG Urine Glucose (UA) NEG NEG Urine Ketones TRACE NEG Urine Occult Blood NEG NEG Urine Nitrite NEG NEG Urine Bilirubin NEG NEG Urine Urobilinogen NEG NEG Urine Leukocyte Esterase NEG NEG Urine WBC (Auto) 1-5 0-5 /hpf Urine RBC (Auto) 0-4 0-4 /hpf Urine Hyaline Casts (Auto) 5-10 0-5 /lpf Urine Epithelial Cells (Auto) >30 0-5 /lpf Urine Bacteria (Auto) NEG NEG Urine Test NEG NEG Diagnostic Radiology CT OF THE ABDOMEN AND PELVIS WITH CONTRAST CLINICAL HISTORY: Diffuse abdominal pain. Possible bowel obstruction. Fallopian tube carcinoma. COMPARISON STUDY: CT of the abdomen and pelvis June 23, 2017. TECHNIQUE: Following IV administration of 116 mL of Optiray-320, axial images of the abdomen and pelvis were obtained from the lung bases to the proximal femurs. Images were reviewed in the axial, sagittal, and coronal planes. IV contrast was administered without complication. A dose lowering technique was utilized adhering to the principles of ALARA. CT DOSE: 713.05 mGy.cm FINDINGS: Visualized portions of the lower chest demonstrate a moderate right pleural effusion and a small left pleural effusion. These are unchanged since exam of June 23, 2017. Extensive peritoneal carcinomatosis is again noted. This is similar to prior CT. The appearance of the liver, spleen, adrenal glands, kidneys and pancreas is unchanged. There is no hydronephrosis. There is no pneumatosis, free air or portal venous gas. A ventral hernia which contains ascites and tumor is again noted. A moderate amount of ascites is noted. There has been interval development of moderate extraperitoneal hemorrhage within the right anterior pelvis. A few hematomas are noted, largest of which measures 8 x 6.2 x 1.8 cm. This is new since CT of June 23, 2012. This hemorrhage is extraperitoneal. No active extravasation is identified. Major vasculature of the abdomen and pelvis is patent. There are no suspicious osseous lesions. IMPRESSION: 1. Interval development of moderate extraperitoneal hemorrhage within the right anterior pelvis with several hematomas located within and immediately posterior to the right rectus sheath, within the space of [place]. No active extravasation. Largest hematoma measures approximately 8 x 6.2 x 1.8 cm. Findings discussed with Dr. Henry at time of dictation. 2. No significant change in extensive peritoneal carcinomatosis with moderate ascites. No bowel obstruction. Electronically signed by: Dominic Carias M.D. 07/02/2017 5:32 PM Dictated Date/Time: 07/02/2017 5:18 PM Impression Assessment and Plan 52 year old with new intra-abdominal hematomas following therapeutic paracentesis on the right side 5 days ago Based on examination, this patient does not have an acute abdomen. A drop in her Hb from 13 to 11 is noted however, which needs to be monitored. Our plan for her as as follows: Intra-abdominal Hematomas following Paracentesis - Hb drop from 13-11; follow q6h - Non-surgical abdomen, continue to follow clinical progression - Coag studies reviewed and normal - Morphine 2 mg q 2 hours PRN for pain - Consult surgery to follow patient Hyponatremia - Likely 2/2 hypertonic losses from poor PO intake - Blood and urine osm studies - NSS + 20 KCl at 125 Hypokalemia - supplemental fluids as above Hypertension - BP stable at this time - Continue Home Meds DVT Prophylaxis - Patient is higher risk for VTE due to active malignancy but new hematomas contra-indicated pharmacological agents at this time - SCD, TEDs Code Status: Level I Disposition: Telemetry Attending Addendum: I have physically seen and examined this patient, have supervised the medical residents activities, and agree with the H&P as noted above with the following exceptions as noted. The patient denies chest pain, palpitations, shortness of breath, cough, lower extremity swelling, vision change, hearing change, sore throat, fevers, chills, sweats, nausea, vomiting, blood in urine or stool, dysuria, urinary frequency or urgency, lightheadedness, dizziness, headache, memory loss, rash, abnormal bruising or bleeding, imbalance, focal or generalized weakness, numbness or tingling in arms or legs, generalized arthralgias or myalgias, back or neck pain , night sweats, or allergy symptoms. The review of systems is otherwise negative other than for that already noted above, and at least 10 systems have been reviewed. The patient is awake, well-developed and adequately nourished, alert and oriented 3, normocephalic and atraumatic, lying in bed and in no acute distress. HEENT--PERRL, EOMI, mucous membranes and oropharynx dry. Neck--supple, no JVD or bruits, thyroid normal, trachea midline, no adenopathy. Heart--normal S1 and S2, no extra beats, no murmurs, rubs or gallops. Lungs--clear bilaterally with good air movement, no respiratory distress, no accessory muscle use. Abdomen--normal bowel sounds and soft. Generalized tenderness. Mild distention. No hernias or masses, no organomegaly. Extremities--no cyanosis, clubbing or edema. There are good distal pulses b/l. Dermatologic--normal skin turgor, normal color, warm and dry, no abnormal lymph nodes, no rash. Neurologic--cranial nerves II through XII grossly intact, motor and sensory examination normal. Rheumatologic--normal range of motion, nontender, muscles and joints. Psychiatric--normal affect. Assessment and Plan: 1. Several hematomas with in and immediately posterior to the right rectus sheath with no active extravasation--the patient did have a recent IR -guided therapeutic paracentesis for malignant ascites on 06/27/2017. H&H every 6 hours for the next 24 hours to follow drop in hemoglobin from 13-11. Morphine 2 mg IV every 2 hours when necessary pain. ED with surgical consult over the phone determined to not be a surgical abdomen. Surgical consult to follow the patient. 2. Hyponatremia--we've added a serum osmolality and urine osmolality to further assess. NSS with KCl 20 mEq at 125 ML's per hour. Level of Care Telemetry Advanced Directives Existing Advance Directive: No Existing Living Will: No Existing Power of [employer]: No Resuscitation Status FULL RESUSCITATION VTE Prophylaxis Risk Level: Moderate Given or contraindicated: SCD's, Contraindicated (hematoma) Social Service Consult Cancer Patient Under [place]
[2017-07-02] MEDS ORDERED: ACETAMINOPHEN 325 MG TAB PO PRN (20:15)
[2017-07-02] MEDS ORDERED: ONDANSETRON INJ 2 MG/ML 2 ML VIAL IV PRN (20:15)
[2017-07-02] MEDS ORDERED: MAGNESIUM HYDROXIDE SUSP 30 ML UDC PO PRN (20:15)
[2017-07-02] MEDS ORDERED: ALUMINUM/MAGNESIUM/SIMETH (MAALOX MAX) 30 ML UDC PO PRN (20:15)
[2017-07-02] MEDS ORDERED: IV FLUIDS COMPLETED PRN (20:30)
--- NOTE | 2017-07-02 20:58 | EMERGENCY ROOM VISIT NOTE ---
History Report prepared by Katheryn: Veronica Adams Under the Supervision of: Dr. Akhil Henry D.O. First contact with patient: 15:29 Chief Complaint: ABDOMINAL PAIN Stated Complaint: POSSIBLE BOWEL BLOCKAGE/STOMACH PAIN History of Present Illness The patient is a 52 year old female who presents to the Emergency Room with complaints of persistent abdominal pain that began on Tuesday. She is currently rates her discomfort as a 4/10 in severity. 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 She states that she has been having bowel movements every other day since her treatment began, but states that she has not had a bowel movement within the last two days. The patient states that today she tried eating breakfast but vomited it back up. She states that she has noticed back pain. The patient states that she has noticed that her abdomen is distended. She states that she was sent in to the emergency department for a possible bowel obstruction. The patient denies any history of bowel obstructions, but notes a history of a previous twisted bowel. She states that she tried using a stool softener for her symptoms, but denies any relief. The patient reports a decrease in urination, but additionally notes a decrease in fluid intake and a decrease in appetite. She notes a surgical history of a complete hysterectomy and an appendectomy. The patient states that she has been taking Tramadol for pain. Pt denies headache, change in vision, cough, runny nose, fevers, chest pain, shortness of breath, diarrhea, pain with urination, and melena. Source of History: patient Onset: Tuesday Position: abdomen Symptom Intensity: 4/10 Timing: other (persistent) Associated Symptoms: + nausea, + vomiting, + back pain, + urinary symptoms ( decrease in urination) Note: Associated Symptoms: constipation, decrease in appetite, decrease in fluid intake. Review of Systems See HPI for pertinent positives & negatives. A total of 10 systems reviewed and were otherwise negative. Past Medical & Surgical Medical Problems: (1) Aneurysm (2) Cancer of fallopian tube (3) HTN (hypertension) (4) Intra-abdominal hematoma Surgical Problems: (1) H/O tubal ligation Family History FH: HTN (hypertension) FH: cancer Social History Smoking Status: Never Smoker Marital Status: Housing Status: lives with family Occupation Status: employed Current/Historical Medications Scheduled Amlodipine Besylate (Amlodipine Besylate), 10 MG PO HS Calcium W/ Magnesium (Calcium & Magnesium), 1 TAB PO DAILY Captopril/Hctz (Capozide), 1 TAB PO BID Loratadine (Claritin), 10 MG PO DAILY Multiple Vitamins W/ Minerals (One Daily For Women), 1 TAB PO DAILY Ranitidine (Zantac), 150 MG PO BID Scheduled PRN Tramadol HCl (Tramadol HCl), 50 MG PO Q4H PRN for Pain Allergies Coded Allergies: Usk (Verified Allergy, Severe, Swelling of face,throat,tongue and under the arms., 06/27/17) Reported by PT. Polyethylene Glycol (Unverified Allergy, Unknown, HIVES, 06/27/17) Prochlorperazine (Unverified Allergy, Unknown, HIVES, 06/27/17) Uncoded Allergies: ARTURO (Allergy, Severe, Swelling of face,throat,tongue and under the arms., 10/01/14) Reported by PT TAPE (Allergy, Unknown, 01/03/03) Physical Exam Vital Signs Date Time Temp Pulse Resp B/P (MAP) Pulse Ox O2 Delivery O2 Flow Rate FiO2 07/02/17 20:51 110 20 97 07/02/17 20:09 116 07/02/17 19:44 122 21 146/97 97 07/02/17 17:26 102 18 135/94 96 Room Air 07/02/17 15:26 36.6 116 20 125/79 96 Room Air Physical Exam GENERAL: alert, sitting up in bed, disheveled, well nourished, no distress, non- toxic EYE EXAM: normal conjunctiva. OROPHARYNX: no exudate, no erythema, lips, buccal mucosa, and tongue normal and mucous membranes are moist NECK: supple, no nuchal rigidity, no adenopathy, non-tender LUNGS: Clear to auscultation. Normal chest wall mechanics HEART: no murmurs, S1 normal and S2 normal ABDOMEN: Distended abdomen with old incision in place, faint fluid wave, bruising in right lower quadrant. abdomen soft, non-tender, normo-active bowel sounds, no masses, no rebound or guarding. BACK: Back is symmetrical on inspection and there is no deformity, no midline tenderness, no CVA tenderness. SKIN: no rashes and no bruising UPPER EXTREMITIES: upper extremities are grossly normal. LOWER EXTREMITIES: No pitting edema. NEURO EXAM: Normal sensorium, cranial nerves II-XII grossly intact, normal speech, no gross weakness of arms, no gross weakness of legs. Medical Decision & Procedures ER Provider Diagnostic Interpretation: CT:Per my review, radiologist interpretation. CT OF THE ABDOMEN AND PELVIS WITH CONTRAST CLINICAL HISTORY: Diffuse abdominal pain. Possible bowel obstruction. Fallopian tube carcinoma. COMPARISON STUDY: CT of the abdomen and pelvis June 23, 2017. TECHNIQUE: Following IV administration of 116 mL of Optiray-320, axial images of the abdomen and pelvis were obtained from the lung bases to the proximal femurs. Images were reviewed in the axial, sagittal, and coronal planes. IV contrast was administered without complication. A dose lowering technique was utilized adhering to the principles of ALARA. CT DOSE: 713.05 mGy.cm FINDINGS: Visualized portions of the lower chest demonstrate a moderate right pleural effusion and a small left pleural effusion. These are unchanged since exam of June 23, 2017. Extensive peritoneal carcinomatosis is again noted. This is similar to prior CT. The appearance of the liver, spleen, adrenal glands, kidneys and pancreas is unchanged. There is no hydronephrosis. There is no pneumatosis, free air or portal venous gas. A ventral hernia which contains ascites and tumor is again noted. A moderate amount of ascites is noted. There has been interval development of moderate extraperitoneal hemorrhage within the right anterior pelvis. A few hematomas are noted, largest of which measures 8 x 6.2 x 1.8 cm. This is new since CT of June 23, 2012. This hemorrhage is extraperitoneal. No active extravasation is identified. Major vasculature of the abdomen and pelvis is patent. There are no suspicious osseous lesions. IMPRESSION: 1. Interval development of moderate extraperitoneal hemorrhage within the right anterior pelvis with several hematomas located within and immediately posterior to the right rectus sheath, within the space of [place]. No active extravasation. Largest hematoma measures approximately 8 x 6.2 x 1.8 cm. Findings discussed with Dr. Henry at time of dictation. 2. No significant change in extensive peritoneal carcinomatosis with moderate ascites. No bowel obstruction. Electronically signed by: Dominic Carias M.D. 07/02/2017 5:32 PM Dictated Date/Time: 07/02/2017 5:18 PM Laboratory Results 07/02/17 15:48 Red Blood Count 3.82, Mean Corpuscular Volume 86.9, Mean Corpuscular Hemoglobin 29.6, Mean Corpuscular Hemoglobin Concent 34.0, Mean Platelet Volume 8.5, Neutrophils (%) (Auto) 75.8, Lymphocytes (%) (Auto) 11.2, Monocytes (%) (Auto) 12.1, Eosinophils (%) (Auto) 0.5, Basophils (%) (Auto) 0.2, Neutrophils # (Auto ) 6.07, Lymphocytes # (Auto) 0.90, Monocytes # (Auto) 0.97, Eosinophils # (Auto ) 0.04, Basophils # (Auto) 0.02 07/02/17 15:48 Test 07/02/17 15:48 07/02/17 16:30 07/02/17 16:48 White Blood Count 8.02 K/uL (4.8-10.8) Red Blood Count 3.82 M/uL (4.2-5.4) Hemoglobin 11.3 g/dL (12.0-16.0) Hematocrit 33.2 % (37-47) Mean Corpuscular Volume 86.9 fL (80-100) Mean Corpuscular Hemoglobin 29.6 pg (25-34) Mean Corpuscular Hemoglobin Concent 34.0 g/dl (32-36) Platelet Count 384 K/uL (130-400) Mean Platelet Volume 8.5 fL (7.4-10.4) Neutrophils (%) (Auto) 75.8 % Lymphocytes (%) (Auto) 11.2 % Monocytes (%) (Auto) 12.1 % Eosinophils (%) (Auto) 0.5 % Basophils (%) (Auto) 0.2 % Neutrophils # (Auto) 6.07 K/uL (1.4-6.5) Lymphocytes # (Auto) 0.90 K/uL (1.2-3.4) Monocytes # (Auto) 0.97 K/uL (0.11-0.59) Eosinophils # (Auto) 0.04 K/uL (0-0.5) Basophils # (Auto) 0.02 K/uL (0-0.2) RDW Standard Deviation 43.7 fL (36.4-46.3) RDW Coefficient of Variation 13.8 % (11.5-14.5) Immature Granulocyte % (Auto) 0.2 % Immature Granulocyte # (Auto) 0.02 K/uL (0.00-0.02) Anion Gap 7.0 mmol/L (3-11) Est Creatinine Clear Calc Drug Dose 147.5 ml/min Estimated GFR () 128.9 Estimated GFR (Non- 111.2 BUN/Creatinine Ratio 15.9 (10-20) Calcium Level 9.2 mg/dl (8.5-10.1) Total Bilirubin 1.1 mg/dl (0.2-1) Direct Bilirubin 0.2 mg/dl (0-0.2) Aspartate Amino Transf (AST/SGOT) 21 U/L (15-37) Alanine Aminotransferase (ALT/SGPT) 20 U/L (12-78) Alkaline Phosphatase 118 U/L (45-117) Total Protein 7.1 gm/dl (6.4-8.2) Albumin 3.2 gm/dl (3.4-5.0) Lipase 60 U/L (73-393) Urine Color DK YELLOW Urine Appearance CLEAR (CLEAR) Urine pH 6.5 (4.5-7.5) Urine Specific [place] 1.024 (1.000-1.030) Urine Protein TRACE (NEG) Urine Glucose (UA) NEG (NEG) Urine Ketones TRACE (NEG) Urine Occult Blood NEG (NEG) Urine Nitrite NEG (NEG) Urine Bilirubin NEG (NEG) Urine Urobilinogen NEG (NEG) Urine Leukocyte Esterase NEG (NEG) Urine WBC (Auto) 1-5 /hpf (0-5) Urine RBC (Auto) 0-4 /hpf (0-4) Urine Hyaline Casts (Auto) 5-10 /lpf (0-5) Urine Epithelial Cells (Auto) >30 /lpf (0-5) Urine Bacteria (Auto) NEG (NEG) Urine Test NEG (NEG) Laboratory results per my review. Medications Administered Medications (Trade) Dose Ordered Sig/Luci Route Start Time Stop Time Status Last Admin Dose Admin Sodium Chloride 1,000 ml @ 999 mls/hr Q1H1M STAT IV 07/02/17 16:01 07/02/17 17:01 DC 07/02/17 16:29 999 MLS/HR Morphine Sulfate (MoRPHine SULFATE INJ) 4 mg NOW STAT IV 07/02/17 16:01 07/02/17 16:02 DC 07/02/17 16:29 4 MG Ondansetron HCl (Zofran Inj) 4 mg NOW STAT IV 07/02/17 16:01 07/02/17 16:02 DC 07/02/17 16:29 4 MG Sodium Chloride 1,000 ml @ 999 mls/hr Q1H1M STAT IV 07/02/17 17:18 07/02/17 18:18 DC 07/02/17 17:26 999 MLS/HR Potassium Chloride (Klor-Con M10) 40 meq NOW STAT PO 07/02/17 18:42 07/02/17 18:43 DC 07/02/17 19:12 40 MEQ Ondansetron HCl (Zofran Inj) 4 mg NOW STAT IV 07/02/17 19:28 07/02/17 19:29 DC 07/02/17 19:35 4 MG Morphine Sulfate (MoRPHine SULFATE INJ) 2 mg STK-MED ONCE .ROUTE 07/02/17 19:32 07/02/17 19:33 DC 07/02/17 19:37 2 MG Morphine Sulfate (MoRPHine SULFATE INJ) 4 mg STK-MED ONCE .ROUTE 07/02/17 19:32 07/02/17 19:33 DC 07/02/17 19:36 4 MG ED Course ED COURSE: Vital signs were reviewed and showed tachycardic The patients medical record was reviewed The above diagnostic studies were performed and reviewed. ED treatments and interventions as stated above. 1529: The patient was evaluated in room C8. A complete history and physical examination was performed by the medical student. 1553: The patient was evaluated in room C8. A complete history and physical examination was performed. 1601: Ordered Zofran Inj 4 mg IV, Morphine Sulfate 4 mg IV, Sodium Chloride 1000 ml @ 999 mls/hr IV. 1718: Ordered Sodium Chloride 1000 ml @ 999 mls/hr IV. 1726: I discussed the patients case with Dr. Carias, Radiology. He states that the patient should be evaluated for further treatment and care. 1810: Upon reevaluation, the patient is resting comfortably.I discussed my findings with the patient and she understands and agrees with the treatment plan. Based on the patients age, coexisting illnesses, exam and lab findings the decision to treat as an inpatient was made. The patient remained stable while under my care. The patient will be evaluated for further management. 1841: Ordered Potassium Chloride 40 meq PO. 1846: I discussed the patients case with Dr. Brady, General Surgery. He feels that the patient should be evaluated for further treatment. 1950: I discussed the patients case with ORIANA Case Resident. He is going to evaluate the patient for further treatment. Medical Decision Differential diagnoses includes but is not limited to gastritis, peptic ulcer disease, GERD, gallbladder disease, pancreatitis, small bowel obstruction, acute coronary syndrome, pericarditis, ischemic bowel, irritable bowel disease, irritable bowel syndrome, appendicitis, diverticulitis, malignancy, hernia, urinary tract infection, torsion, perforation, trauma, infectious. Medication Reconciliation: I attest that I have personally reviewed the patient' s current medication list. Blood pressure screening: Patient was found to have normal blood pressure on screening and does not require follow-up. Patient is a 52-year-old female who presents the ER for lower abdominal pain which has been worsening over the past several days. History of cancer. Treated with chemotherapy and recent paracentesis [address] of abdomen pelvis shows interval development of extraperitoneal hemorrhage with multiple hematomas. Hemoglobin dropped a total of 2 g over 5 days. I believe this is secondary to the paracentesis which was performed of the right lower quadrant. No active extravasation. Discussed with general surgery and they recommended observation and trending for hemoglobin. If this would continue to trend down patient would likely need IR. Patient is currently hemodynamically stable. She has no place with exception of mild back pain. She was given pain meds and fluids. I felt it was reasonable to observe this patient here as the paracentesis which I favors likely cause occurred 5 days ago and she is currently hemodynamically stable. Patient also had mild hypokalemia and hyponatremia which I favor secondary to dehydration. Patient was updated bedside. She is admitted to internal medicine. Consults Time Called: 1841 Consulting Physician: Dr. Brady, General Surgery Returned Call: 1846 I discussed the patients case with Dr. Brady, General Surgery. He feels that the patient should be evaluated for further treatment. Additional Consults: Time Called: 1809 Consulted Physician: ORIANA Case Resident Returned Call: 1950 Additional Comments: I discussed the patients case with Dr. Chisholm [facility] Resident. He is going to evaluate the patient for further treatment. Impression Primary Impression: Intra-abdominal hematoma Additional Impressions: Hypokalemia Hyponatremia Abdominal hemorrhage Scribe Attestation The scribe's documentation has been prepared under my direction and personally reviewed by me in its entirety. I confirm that the note above accurately reflects all work, treatment, procedures, and medical decision making performed by me. Departure Information Dispostion Being Evaluated By Hospitalist Referrals Linda Stanley MD (PCP) Problem Qualifiers Primary Impression: Intra-abdominal hematoma Encounter type: initial encounter Qualified Codes: S36.92XA - Contusion of unspecified intra-abdominal organ, initial encounter
[2017-07-02 20:59] LABS: PARTIAL THROMBOPLASTIN RATIO 0.9; PROTHROMBIN TIME (PATIENT) 10.4 SECONDS (9.0-12.0)
[2017-07-02] MEDS ORDERED: AMLODIPINE BESYLATE 5 MG TAB PO SCH (21:00)
[2017-07-02 21:28] VITALS: BP 146/97; PULSE 110; TEMP 36.6; BMI 31.0
[2017-07-02 22:10] LABS: HEMATOCRIT 34.6 % (37-47)
[2017-07-02] MEDS: RANITIDINE HCL 150 MG TAB PO SCH (22:43)
[2017-07-02] MEDS: NSS + 20MEQ KCL 1000ML 1,000 ML IV SCH (22:45)
[2017-07-02] MEDS: MoRPHine SULFATE 2 MG/ML CARP IV PRN (22:51)
[2017-07-02 23:02] VITALS: BP 137/90; PULSE 110; TEMP 37; O2SAT 97; Ht 167.6 cm; Wt 87.0 kg
[2017-07-02 23:58] VITALS: BP 137/92; PULSE 106; TEMP 37.1; O2SAT 95
[2017-07-03 00:05] VITALS: O2SAT 97
[2017-07-03] MEDS ORDERED: LORAZEPAM INJ 1 MG in SYRINGE 0.5 ML IV STA ×2 (00:40→03:58)
[2017-07-03] MEDS ORDERED: CALCIUM CARBONATE 500 MG CHEWABLE PO PRN (00:45)
[2017-07-03] MEDS: MoRPHine SULFATE 2 MG/ML CARP IV PRN ×3 (02:50→12:23)
[2017-07-03 04:08] VITALS: BP 127/80; PULSE 104; TEMP 37.1; O2SAT 94
[2017-07-03] MEDS: NSS + 20MEQ KCL 1000ML 1,000 ML IV SCH (05:42)
[2017-07-03 07:34] VITALS: BP 125/86; PULSE 106; TEMP 36.7; O2SAT 97
[2017-07-03 07:53] LABS: HEMATOCRIT 32.3 % (37-47); MEAN CELL VOLUME 88.5 fL (80-100); MEAN CORPUSCULAR HEMOGLOBIN 28.8 pg (25-34); MEAN CORPUSCULAR HGB CONC 32.5 g/dl (32-36); MEAN PLATELET VOLUME 8.4 fL (7.4-10.4); PLATELET COUNT 354 K/uL (130-400); RED BLOOD COUNT 3.65 M/uL (4.2-5.4); WHITE BLOOD COUNT 4.91 K/uL (4.8-10.8)
[2017-07-03 08:32] LABS: ALB/GLOB RATIO 0.8 (0.9-2); BUN/CREATININE RATIO 17.4 (10-20); CALCIUM 8.7 mg/dl (8.5-10.1); CREATININE 0.46 mg/dl (0.60-1.20); POTASSIUM 4.3 mmol/L (3.5-5.1)
[2017-07-03] MEDS: RANITIDINE HCL 150 MG TAB PO SCH (08:47)
[2017-07-03] MEDS ORDERED: CEROVITE ADV FORMULA TAB PO SCH (09:00)
[2017-07-03] MEDS ORDERED: LORATADINE 10 MG TAB PO SCH (09:00)
[2017-07-03] MEDS ORDERED: CALCIUM 600MG + VIT D 400 IU TAB PO SCH (09:00)
--- NOTE | 2017-07-03 09:49 | Pre-Operative Consultation ---
History General Date of Service: Jul 03, 2017. HPI HPI: The patient is a 52 year old female being seen for right flank and abdominal hematoma s/p paracentesis.She was admitted with persistent abdominal pain that is chronic but worse after a procedure last Tuesday. 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 She states that she has noticed back pain. The patient states that she has noticed that her abdomen is distended. She also noticed a discoloration of her RLQ where the procedure was performed. Historian: patient Procedure Urgency: Acute Risk Assessment Daily beta yaw use?: No Problem List Medical Problems: (1) Abdominal hemorrhage Status: Acute (2) Abdominal pain Status: Acute (3) Allergic reaction Status: Acute (4) Hypokalemia Status: Acute (5) Hyponatremia Status: Acute Medical & Surgical History Past Medical History: cancer - ovarian, GERD, hypertension Past Surgical History: other Family History Family History: cancer, hypertension Social History Hx Tobacco Use In Past Year?: No Smoking Status: Never Smoker Drug Use: none Marital status: Housing status: lives with family Occupation status: employed Immunizations Have You Had Influenza Vaccine: Yes Have You Had Tetanus Vaccine: Yes History of Pneumococcal: Unknown History Hepatitis B Vaccine: Unknown Allergies Allergies: Coded Allergies: [place] (Verified Allergy, Severe, Swelling of face,throat,tongue and under the arms., 06/27/17) Reported by PT. Polyethylene Glycol (Unverified Allergy, Unknown, HIVES, 06/27/17) Prochlorperazine (Unverified Allergy, Unknown, HIVES, 06/27/17) Uncoded Allergies: ARTURO (Allergy, Severe, Swelling of face,throat,tongue and under the arms., 10/01/14) Reported by PT TAPE (Allergy, Unknown, 01/03/03) Medications Current Inpatient Medications Current Inpatient Medications Medications (Trade) Dose Ordered Sig/Luci Route Start Time Stop Time Status Last Admin Dose Admin Ioversol (Optiray 320) 116 ml UD PRN IV 07/02/17 17:15 07/06/17 17:14 Potassium Chloride/Sodium Chloride 1,000 ml @ 125 mls/hr Q8H IV 07/02/17 21:30 08/01/17 21:29 07/03/17 05:42 125 MLS/HR Acetaminophen (Tylenol Tab) 650 mg Q4H PRN PO 07/02/17 20:15 08/01/17 20:14 Al Hydrox/Mg Hydrox/Simethicone (Maalox Max Susp) 15 ml Q4H PRN PO 07/02/17 20:15 08/01/17 20:14 Magnesium Hydroxide (Milk Of Magnesia Susp) 30 ml Q12H PRN PO 07/02/17 20:15 08/01/17 20:14 Ondansetron HCl (Zofran Inj) 4 mg Q6H PRN IV 07/02/17 20:15 08/01/17 20:14 Morphine Sulfate (MoRPHine SULFATE INJ) 2 mg Q2H PRN IV 07/02/17 20:15 07/16/17 20:14 07/03/17 08:52 2 MG Loratadine (Claritin Tab) 10 mg DAILY PO 07/03/17 09:00 08/02/17 08:59 07/03/17 08:47 10 MG Multivitamins/ Minerals (Multivitamin W/ Minerals Tab) 1 tab DAILY PO 07/03/17 09:00 08/02/17 08:59 07/03/17 08:46 1 TAB Ranitidine HCl (zANTac TAB) 150 mg BID PO 07/02/17 21:00 08/01/17 20:59 07/03/17 08:47 150 MG Amlodipine Besylate (Norvasc Tab) 10 mg HS PO 07/02/17 21:00 08/01/17 20:59 07/02/17 22:45 10 MG Calcium/Vitamin D (Caltrate Plus Tab) 1 tab DAILY PO 07/03/17 09:00 08/02/17 08:59 07/03/17 08:47 1 TAB Miscellaneous Information (Order Awaiting Action) 1 ea QS N/A 07/03/17 00:00 08/02/17 00:00 Miscellaneous (Iv Fluids Completed) 1 ea PRN PRN N/A 07/02/17 20:30 07/02/18 20:29 Calcium Carbonate (Tums Chew Tab) 1,500 mg TID PRN PO 07/03/17 00:45 08/02/17 00:44 07/03/17 01:34 1,500 MG Review of Systems Review of Systems Constitutional: denies chills, denies diaphoresis, denies fever, weakness Eyes: reports: no symptoms ENT: reports: no symptoms reported Cardiovascular: denies: chest pain, chest tightness, chest pressure, palpitations Respiratory: denies: cough, short of breath, stridor, wheezing Gastrointestinal: abdominal pain, denies constipation, denies diarrhea, nausea , vomiting Genitourinary - Female: reports: no symptoms Musculoskeletal: back pain, denies joint pain, denies joint swelling, denies muscle stiffness, denies neck pain Integumentary: change in color, change in hair/nails, lumps, rash, other ( hematoma RLQ) Neurologic: reports: no symptoms Psychiatric: reports: no symptoms Endocrine: no symptoms Hematologic / Lymphatic: anemia, easy bleeding, easy bruising Allergic / Immunologic: no symptoms Physical Exam Physical Exam General Appearance: + WD/WN Ears, Nose, Throat: + normal ENT inspection Neck: No abnormal inspection, No tracheal deviation, No lymphadenophy, No stiffness, No tenderness Respiratory: No rales, No decreased breath sounds, No rhonchi, No stridor, No wheezing Cardiovascular: No tachycardia, No gallop/S3, No diastolic murmur, No gallop/S4 , No bradycardia, No systolic murmur Abdomen: + tenderness, + distension, + hernia, No abnormal bowel sounds, No rebound, No organomegaly, No guarding Extremities: + edema, No deformity, No swelling, No calf tenderness, No inflammation Neurologic/Psychiatric: No motor deficit/weakness, No disorientation, No sensory deficit Skin Characteristics: No diaphoresis, No pallor, No jaundice, No rash Lymphatic: No abnormal adenopathy Diagnostics Labs Labs Results Past 24 Hours Test 07/02/17 15:48 07/02/17 16:30 07/02/17 16:48 07/02/17 21:59 Range/Units White Blood Count 8.02 4.8-10.8 K/uL Red Blood Count 3.82 4.2-5.4 M/uL Hemoglobin 11.3 11.2 12.0-16.0 g/dL Hematocrit 33.2 34.6 37-47 % Mean Corpuscular Volume 86.9 80-100 fL Mean Corpuscular Hemoglobin 29.6 25-34 pg Mean Corpuscular Hemoglobin Concent 34.0 32-36 g/dl Platelet Count 384 130-400 K/uL Mean Platelet Volume 8.5 7.4-10.4 fL Neutrophils (%) (Auto) 75.8 % Lymphocytes (%) (Auto) 11.2 % Monocytes (%) (Auto) 12.1 % Eosinophils (%) (Auto) 0.5 % Basophils (%) (Auto) 0.2 % Neutrophils # (Auto) 6.07 1.4-6.5 K/uL Lymphocytes # (Auto) 0.90 1.2-3.4 K/uL Monocytes # (Auto) 0.97 0.11-0.59 K/uL Eosinophils # (Auto) 0.04 0-0.5 K/uL Basophils # (Auto) 0.02 0-0.2 K/uL RDW Standard Deviation 43.7 36.4-46.3 fL RDW Coefficient of Variation 13.8 11.5-14.5 % Immature Granulocyte % (Auto) 0.2 % Immature Granulocyte # (Auto) 0.02 0.00-0.02 K/uL Sodium Level 127 136-145 mmol/L Potassium Level 3.2 3.5-5.1 mmol/L Chloride Level 89 98-107 mmol/L Carbon Dioxide Level 31 21-32 mmol/L Anion Gap 7.0 3-11 mmol/L Blood Urea Nitrogen 8 7-18 mg/dl Creatinine 0.49 0.60-1.20 mg/dl Est Creatinine Clear Calc Drug Dose 147.5 ml/min Estimated GFR () 128.9 Estimated GFR (Non- 111.2 BUN/Creatinine Ratio 15.9 10-20 Random Glucose 113 70-99 mg/dl Calcium Level 9.2 8.5-10.1 mg/dl Total Bilirubin 1.1 0.2-1 mg/dl Direct Bilirubin 0.2 0-0.2 mg/dl Aspartate Amino Transf (AST/SGOT) 21 15-37 U/L Alanine Aminotransferase (ALT/SGPT) 20 12-78 U/L Alkaline Phosphatase 118 45-117 U/L Total Protein 7.1 6.4-8.2 gm/dl Albumin 3.2 3.4-5.0 gm/dl Lipase 60 73-393 U/L Urine Color DK YELLOW Urine Appearance CLEAR CLEAR Urine pH 6.5 4.5-7.5 Urine Specific [place] 1.024 1.000-1.030 Urine Protein TRACE NEG Urine Glucose (UA) NEG NEG Urine Ketones TRACE NEG Urine Occult Blood NEG NEG Urine Nitrite NEG NEG Urine Bilirubin NEG NEG Urine Urobilinogen NEG NEG Urine Leukocyte Esterase NEG NEG Urine WBC (Auto) 1-5 0-5 /hpf Urine RBC (Auto) 0-4 0-4 /hpf Urine Hyaline Casts (Auto) 5-10 0-5 /lpf Urine Epithelial Cells (Auto) >30 0-5 /lpf Urine Bacteria (Auto) NEG NEG Urine Test NEG NEG Prothrombin Time 10.4 9.0-12.0 SECONDS Prothromb Time International Ratio 1.0 0.9-1.1 Activated Partial Thromboplast Time 24.4 21.0-31.0 SECONDS Partial Thromboplastin Ratio 0.9 Osmolality 263 280-300 mOsm/kg Test 07/03/17 07:32 Range/Units White Blood Count 4.91 4.8-10.8 K/uL Red Blood Count 3.65 4.2-5.4 M/uL Hemoglobin 10.5 12.0-16.0 g/dL Hematocrit 32.3 37-47 % Mean Corpuscular Volume 88.5 80-100 fL Mean Corpuscular Hemoglobin 28.8 25-34 pg Mean Corpuscular Hemoglobin Concent 32.5 32-36 g/dl RDW Standard Deviation 45.4 36.4-46.3 fL RDW Coefficient of Variation 14.0 11.5-14.5 % Platelet Count 354 130-400 K/uL Mean Platelet Volume 8.4 7.4-10.4 fL Sodium Level 135 136-145 mmol/L Potassium Level 4.3 3.5-5.1 mmol/L Chloride Level 101 98-107 mmol/L Carbon Dioxide Level 28 21-32 mmol/L Anion Gap 6.0 3-11 mmol/L Blood Urea Nitrogen 8 7-18 mg/dl Creatinine 0.46 0.60-1.20 mg/dl Est Creatinine Clear Calc Drug Dose 157.1 ml/min Estimated GFR () 131.6 Estimated GFR (Non- 113.6 BUN/Creatinine Ratio 17.4 10-20 Random Glucose 98 70-99 mg/dl Osmolality 273 280-300 mOsm/kg Calcium Level 8.7 8.5-10.1 mg/dl Total Bilirubin 1.1 0.2-1 mg/dl Aspartate Amino Transf (AST/SGOT) 16 15-37 U/L Alanine Aminotransferase (ALT/SGPT) 16 12-78 U/L Alkaline Phosphatase 99 45-117 U/L Total Protein 6.2 6.4-8.2 gm/dl Albumin 2.7 3.4-5.0 gm/dl Globulin 3.5 2.5-4.0 gm/dl Albumin/Globulin Ratio 0.8 0.9-2 [address] Rad[address] OF THE ABDOMEN AND PELVIS WITH CONTRAST CLINICAL HISTORY: Diffuse abdominal pain. Possible bowel obstruction. Fallopian tube carcinoma. COMPARISON STUDY: CT of the abdomen and pelvis June 23, 2017. TECHNIQUE: Following IV administration of 116 mL of Optiray-320, axial images of the abdomen and pelvis were obtained from the lung bases to the proximal femurs. Images were reviewed in the axial, sagittal, and coronal planes. IV contrast was administered without complication. A dose lowering technique was utilized adhering to the principles of ALARA. CT DOSE: 713.05 mGy.cm FINDINGS: Visualized portions of the lower chest demonstrate a moderate right pleural effusion and a small left pleural effusion. These are unchanged since exam of June 23, 2017. Extensive peritoneal carcinomatosis is again noted. This is similar to prior CT. The appearance of the liver, spleen, adrenal glands, kidneys and pancreas is unchanged. There is no hydronephrosis. There is no pneumatosis, free air or portal venous gas. A ventral hernia which contains ascites and tumor is again noted. A moderate amount of ascites is noted. There has been interval development of moderate extraperitoneal hemorrhage within the right anterior pelvis. A few hematomas are noted, largest of which measures 8 x 6.2 x 1.8 cm. This is new since CT of June 23, 2012. This hemorrhage is extraperitoneal. No active extravasation is identified. Major vasculature of the abdomen and pelvis is patent. There are no suspicious osseous lesions. IMPRESSION: 1. Interval development of moderate extraperitoneal hemorrhage within the right anterior pelvis with several hematomas located within and immediately posterior to the right rectus sheath, within the space of Retzius. No active extravasation. Largest hematoma measures approximately 8 x 6.2 x 1.8 cm. Findings discussed with Dr. Henry at time of dictation. 2. No significant change in extensive peritoneal carcinomatosis with moderate ascites. No bowel obstruction. Impression Assessment and Plan Assessment and Plan Ovarian CA w/carcinamatosis with hematoma after paracentesis -serial H/H stable -vitals stable -discharge per medical team -will sign off
--- NOTE | 2017-07-03 11:33 | Discharge Instructions ---
Discharge Instructions Date of Service Jul 03, 2017. Admission Reason for Admission: Cancer Of Fallopian Tube, Intra-Abdominal Hematoma Discharge Discharge Diagnosis / Problem: Intra-abdominal hematoma Discharge Goals Goal(s): Decrease discomfort, Improve function, Improve disease control Activity Recommendations Activity Limitations: resume your previous activity . Instructions / Follow-Up Instructions / Follow-Up You presented to the clinic for abdominal pain. Imaging of your abdomen showed hematoma. Surgery was consulted and he doesn't think we need any further intervention at this time. Please take your pain medication as instructed. Follow up with Dr. Varner for further management of your pain medication. Follow up with your primary doctor. Current Hospital Diet Patient's current hospital diet: Regular Diet Discharge Diet Recommended Diet: Regular Diet Pending Studies Studies pending at discharge: no Medical Emergencies . Who to Call and When: Medical Emergencies: If at any time you feel your situation is an emergency, please call 911 immediately. . Non-Emergent Contact Non-Emergency issues call your: Primary Care Provider . . "Provider Documentation" section prepared by Kirill Juan. . VTE Core Measure Inpt VTE Proph given/why not?: SCD's, Contraindicated (hematoma)
[2017-07-03] MEDS ORDERED: HYDR-5688 PO (11:45)
[2017-07-03 11:56] VITALS: BP 125/86; PULSE 106; TEMP 36.7; O2SAT 97
[2017-07-03 11:57] VITALS: BP 128/84; PULSE 105; TEMP 36.6; O2SAT 95
--- NOTE | 2017-07-03 15:22 | Discharge Summary ---
Discharge Summary Date of Service Jul 03, 2017. (Kirill Juan MD) Discharge Summary Admission Date: Jul 02, 2017 at 20:20 Discharge Date: Jul 03, 2017 Discharge Disposition: Home Principal Diagnosis: Intra-abdominal hematoma following paracenresis Immunizations: Have You Had Influenza Vaccine: Yes History of Tetanus Vaccine?: Yes History of Pneumococcal: Unknown History of Hepatitis B Vaccine: Unknown Procedures: Patient Name: DARWIN CARRANZA Unit Number: [id number] Dictated: 07/02/171717 Transcribed: 07/02/171717 RAHEL Printed Date/Time: [~ rep prt dt]/[~ rep prt tm] [~ rep ct labl] - [~ rep ct ivnm] [facility] [place] [address] Dictated: 07/02/171717 Transcribed: 07/02/171717 RAHEL Printed Date/Time: [~ rep prt dt]/[~ rep prt tm] [~ rep ct labl] - [~ rep ct ivnm] CT OF THE ABDOMEN AND PELVIS WITH CONTRAST CLINICAL HISTORY: Diffuse abdominal pain. Possible bowel obstruction. Fallopian tube carcinoma. COMPARISON STUDY: CT of the abdomen and pelvis June 23, 2017. TECHNIQUE: Following IV administration of 116 mL of Optiray-320, axial images of the abdomen and pelvis were obtained from the lung bases to the proximal femurs. Images were reviewed in the axial, sagittal, and coronal planes. IV contrast was administered without complication. A dose lowering technique was utilized adhering to the principles of ALARA. CT DOSE: 713.05 mGy.cm FINDINGS: Visualized portions of the lower chest demonstrate a moderate right pleural effusion and a small left pleural effusion. These are unchanged since exam of June 23, 2017. Extensive peritoneal carcinomatosis is again noted. This is similar to prior CT. The appearance of the liver, spleen, adrenal glands, kidneys and pancreas is unchanged. There is no hydronephrosis. There is no pneumatosis, free air or portal venous gas. A ventral hernia which contains ascites and tumor is again noted. A moderate amount of ascites is noted. There has been interval development of moderate extraperitoneal hemorrhage within the right anterior pelvis. A few hematomas are noted, largest of which measures 8 x 6.2 x 1.8 cm. This is new since CT of June 23, 2012. This hemorrhage is extraperitoneal. No active extravasation is identified. Major vasculature of the abdomen and pelvis is patent. There are no suspicious osseous lesions. IMPRESSION: 1. Interval development of moderate extraperitoneal hemorrhage within the right anterior pelvis with several hematomas located within and immediately posterior to the right rectus sheath, within the space of [place]. No active extravasation. Largest hematoma measures approximately 8 x 6.2 x 1.8 cm. Findings discussed with Dr. Henry at time of dictation. 2. No significant change in extensive peritoneal carcinomatosis with moderate ascites. No bowel obstruction. Electronically signed by: Dominic Carias M.D. 07/02/2017 5:32 PM Dictated Date/Time: 07/02/2017 5:18 PM The status of this report is Signed. Draft = Not yet reviewed or approved by Radiologist. Signed = Reviewed and approved by Radiologist. <AttendingPhy></AttendingPhy> <FamilyPhy>Linda Stanley MD</FamilyPhy> < PrimaryPhy>Linda Stanley MD</PrimaryPhy> <UnitNumber>[id number]</UnitNumber > <VisitNumber>[id number]</VisitNumber> <PatientName>DARWIN CARRANZA</ PatientName> <DateOfBirth>1965</DateOfBirth> <Location>[facility]</Location> < ServiceDate>07/02/17</ServiceDate> <MNE>ESINDI</MNE> <OrderingPhy>Akhil Henry DO</OrderingPhy> <OrderingPhyMNE>f rep ord dr oseguera</OrderingPhyMNE> < DictatingPhyMNE>f rep dict dr oseguera</DictatingPhyMNE> <CCListMNE>f rep ct tuckere</ CCListMNE> <AdmittingPhyMNE>f pt admit dr oseguera</AdmittingPhyMNE> <AttendingPhyMNE >f pt attend dr oseguera</AttendingPhyMNE> <ConsultingPhyMNE>f pt consult dr soeguera</ConsultingPhyMNE> <FamilyPhyMNE>f pt fam dr oseguera</FamilyPhyMNE> <OtherPhyMNE>f pt other dr oseguera</OtherPhyMNE> < PrimaryPhyMNE>f pt prim care dr oseguera</PrimaryPhyMNE> <ReferringPhyMNE>f pt referring dr oseguera</ReferringPhyMNE> (Kirill Juan MD) Medication Reconciliation New Medications: Hydrocodone/Acetaminophen 5MG/325MG ([place] 5MG/325MG) Tab 1 TABLET PO DAILY PRN for Pain, #10 TAB PRN PAIN Continued Medications: Amlodipine Besylate (Amlodipine Besylate) 10 Mg Tab 10 MG PO HS Calcium W/ Magnesium (Calcium & Magnesium) 1 Tab Tab 1 TAB PO DAILY Captopril/Hctz (Capozide) 50 Mg/15 Mg Tab 1 TAB PO BID Loratadine (Claritin) 10 Mg Tab 10 MG PO DAILY, TAB Multiple Vitamins W/ Minerals (One Daily For Women) 1 Tab Tab 1 TAB PO DAILY Ranitidine (Zantac) 150 Mg Tab 150 MG PO BID, TAB Tramadol HCl (Tramadol HCl) 50 Mg Tab 50 MG PO Q4H PRN for Pain Discharge Exam Patient was seen at the bedside. Her was at the bedside. She continues to complain of abdominal pain but states it is chronic. Denies nausea, vomiting , dizziness, palpitation, chest pain or SOB. She had BM this morning. Review of Systems: Constitutional: No fever, No chills Respiratory: No cough, No shortness of breath Abdomen: + pain (chronic generalized abdominal pain), No nausea, No vomiting , No diarrhea, No constipation Integumentary: No rash Physical Exam: General Appearance: WD/WN, no apparent distress Neck: supple, trachea midline Respiratory/Chest: chest non-tender, lungs clear, normal breath sounds, no respiratory distress, no accessory muscle use Cardiovascular: regular rate, rhythm, no edema Abdomen / GI: normal bowel sounds, soft, + tenderness (generalized tender on palpation but she stated that it chronic), + pertinent finding (well healed midline laparotomy scar; suprapubic ecchymoses was noted ) Extremities: no calf tenderness, no pedal edema Neurologic/Psychiatric: alert, normal mood/affect, oriented x 3 Skin: normal color, warm/dry, no rash (Kirill Juan MD) Review of Systems: Constitutional: No fever Respiratory: No shortness of breath Cardiovascular: No chest pain Abdomen: No pain, No nausea, No vomiting Physical Exam: General Appearance: no apparent distress Respiratory/Chest: lungs clear, no respiratory distress Cardiovascular: regular rate, rhythm Abdomen / GI: normal bowel sounds, non tender, soft Neurologic/Psychiatric: alert, oriented x 3 Skin: warm/dry (Sandy Blackburn M.D.) Hospital Course This is a 52 y/o with hx of fallopian tube CA (diagnosed in March 2016) presented to the hospital with acute on chronic abdominal pain and new intra-abdominal hematomas following therapeutic paracentesis on the right side 5 days ago. Patient is currently receiving Chemo. She describes the pain as fullness sensation, generalized, and occasionally radiates to the back. She also has poor appetite. Denies fever, chills, SOB, chest pain or syncope. Intra-abdominal Hematomas following Paracentesis CT of the abdomen/pelvis performed in the ER was significant for intra- abdominal hematoma. Patient was admitted to the hospital for surgery eval. Patient was evaluated by Dr. Casarez. He recommended no intervention at this time given stable H&H and vitals. Coag studies were normal. Discussed the plan with the patient and she felt comfortable to go home and follow up with her Oncologist Dr. Varner. On discharge patient was prescribed [place] for pain. She was instructed to take her regular pain medication and take [place] as needed. Also f/u with Dr. Varner for further pain management. All her home medications were continued during discharge. Total Time Spent: Greater than 30 minutes This includes examination of the patient, discharge planning, medication reconciliation, and communication with other providers. (Kirill Juan MD) Resident Physician Supervision Note: I was present with Dr. Juan in bedside. I verified the valdivia history and physical , reviewed labs and image studies, discussed the case with the resident and agree with the findings and care plan. Total Time Spent: Greater than 30 minutes (Sandy Blackburn M.D.) Discharge Instructions Please refer to the electronic Patient Visit Report (Discharge Instructions) for additional information. (Kirill Juan MD) Additional Copies To Linda Stanley MD
[2017-07-05] MEDS ORDERED: CALC-214 PO (01:59)
[2017-07-15] MEDS ORDERED: PRT40 PO (12:45)
[2017-07-15] MEDS ORDERED: CLC100 PO (12:45)
[2017-07-15] MEDS ORDERED: DRGTP25 TD (12:45)
[2017-07-15] MEDS ORDERED: SNK PO (12:45)
[2017-07-15] MEDS ORDERED: DLD25PCA IV (12:45)
[2017-07-15] MEDS ORDERED: MRLP17 PO (12:45)
== END 2017-07-03 13:20 | disposition home or self-care (01) ==
LOC: C.EDB 15:26 → C.MED 20:20 → ENRESERV 20:29
PROVIDERS: ADMIT Student in an Organized Health Care Education/Training Program; ATTEND Family Medicine
DX: K91.872 Postprocedural seroma of a digestive system organ or structure following a digestive system procedure (principal); Y83.8 Other surgical procedures as the cause of abnormal reaction of the patient, or of later complication, without mention of misadventure at the time of the procedure; E87.6 Hypokalemia; E87.1 Hypo-osmolality and hyponatremia; C56.9 Malignant neoplasm of unspecified ovary; K21.9 Gastro-esophageal reflux disease without esophagitis; I10 Essential (primary) hypertension; Z90.710 Acquired absence of both cervix and uterus; Z90.49 Acquired absence of other specified parts of digestive tract; Z85.44 Personal history of malignant neoplasm of other female genital organs; Z82.49 Family history of ischemic heart disease and other diseases of the circulatory system

== ENCOUNTER 2017-07-05 10:34 | Inpatient (IN) | payer BC ==
[~2017-07-05] VITALS: Ht 167.6 cm; Wt 101.6 kg
[~2017-07-05 10:34] MED LIST changes: +CALC-214 PO; +HYDR-5688 PO; -TRAM-10 PO; +ULT50 PO
[2017-07-05] MEDS ORDERED: SODIUM CHLORIDE 0.9% 1000ML 1,000 ML IV STA (10:55)
[2017-07-05] MEDS ORDERED: ONDANSETRON INJ 2 MG/ML 2 ML VIAL IV STA (10:55)
--- NOTE | 2017-07-05 11:00 | EMERGENCY ROOM VISIT NOTE ---
History Report prepared by Tristonibkurtis: Pastora Tabor Under the Supervision of: Dr. Brian aNva D.O. First contact with patient: 10:45 Chief Complaint: ABDOMINAL PAIN Stated Complaint: SEVERE STOMACH PAIN Nursing Triage Summary: pt c/o hematoma in stomach on tuesday was seen here had abd drain for fluid in abd then developed hematoma. feels nauseated and vomiting, denies any diarrhea , has not been eating much. bilat ankles swelling and back pain. has appt at [address] History of Present Illness The patient is a 52 year old female who presents to the Emergency Room with complaints of persistent abdominal pain for the past 3 days. She is accompanied by her . She rates her discomfort as an 8/10. 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 Her reports they called her Oncologist, Dr. Rose with [facility], yesterday, but were unable to get an appointment with him until this afternoon at 1515. Her pain became so severe this morning that she decided to come to the ED. The patient underwent a paracentesis procedure last week for ascites of the abdomen. After the procedure, where 2.5 Liters of fluid were removed, she developed a hematoma in her abdomen. She notes she has been drinking lots of water but has not been producing much urine. She has also experienced constipation over the past week, as well as nausea and vomiting, but denies any diarrhea. The patient also complains of back pain and swelling in her bilateral legs but denies any fevers. 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 A total of 10 systems reviewed and were otherwise negative. Past Medical & Surgical Medical Problems: (1) Aneurysm (2) Cancer of fallopian tube (3) HTN (hypertension) (4) Intra-abdominal hematoma (5) Rectus sheath hematoma Surgical Problems: (1) H/O tubal ligation Family History FH: HTN (hypertension) FH: cancer Social History Smoking Status: Never Smoker Alcohol Use: none Drug Use: none Marital Status: Housing Status: lives with family Occupation Status: employed Current/Historical Medications Scheduled Amlodipine Besylate (Amlodipine Besylate), 10 MG PO HS Calcium W/ Magnesium (Calcium & Magnesium), 1 TAB PO DAILY Captopril/Hctz (Capozide), 1 TAB PO BID Loratadine (Claritin), 10 MG PO DAILY Multiple Vitamins W/ Minerals (One Daily For Women), 1 TAB PO DAILY Ranitidine (Zantac), 150 MG PO BID Scheduled PRN Hydrocodone/Acetaminophen 5MG/325MG ([place] 5MG/325MG), 1 TABLET PO DAILY PRN for Pain Allergies Coded Allergies: [place] (Verified Allergy, Severe, Swelling of face,throat,tongue and under the arms., 07/05/17) Reported by PT. Polyethylene Glycol (Unverified Allergy, Unknown, HIVES, 07/05/17) Prochlorperazine (Unverified Allergy, Unknown, HIVES, 07/05/17) Uncoded Allergies: ARTURO (Allergy, Severe, Swelling of face,throat,tongue and under the arms., 10/01/14) Reported by PT TAPE (Allergy, Unknown, 01/03/03) Physical Exam Vital Signs Date Time Temp Pulse Resp B/P (MAP) Pulse Ox O2 Delivery O2 Flow Rate FiO2 07/05/17 17:25 122 28 160/99 94 07/05/17 16:30 104 28 151/95 98 Room Air 07/05/17 14:48 114 31 158/99 99 Room Air 07/05/17 13:37 103 32 152/105 97 07/05/17 12:18 97 07/05/17 12:10 98 28 150/98 97 Room Air 07/05/17 10:36 36.5 112 18 139/87 97 Physical Exam GENERAL: Patient is awake, alert, very uncomfortable and anxious appearing. EYES: The conjunctivae are clear. The pupils are round and reactive. EARS, NOSE, MOUTH AND THROAT: The nose is without any evidence of any deformity. Mucous membranes are moist tongue is midline NECK: The neck is nontender and supple. RESPIRATORY: Lung sounds diminished at the right base, no tachypnea or conversational dyspnea noted. CARDIOVASCULAR: Heart sounds were tachycardic but regular, no definite murmur noted to auscultation. GASTROINTESTINAL: The abdomen is moderately distended and diffusely tender. There is no guarding or rigidity noted. Ecchymosis noted in the lower abdomen, consistent with recent diagnosis of abdominal wall rectus sheath hematoma. MUSCULOSKELETAL/EXTREMITIES: There is no evidence of gross deformity full range of motion is noted in the hips and shoulders SKIN: Pedal edema bilaterally. There is no obvious evidence of any rash. There are no petechiae, pallor or cyanosis noted. NEUROLOGIC: Patient is awake alert and oriented x3 Medical Decision & Procedures ER Provider Diagnostic Interpretation: Radiology results as stated below per my review and radiologist interpretation: CHEST AND ABDOMEN 2 VIEWS HISTORY: Generalized abdominal pain. COMPARISON: Abdomen and pelvis CT 07/02/2017. FINDINGS: A right Port-A-Cath terminates in the superior cavoatrial junction. Small bilateral pleural effusions have progressed. Bibasilar densities favor atelectasis from the pleural fluid. Surgical clips within the left upper quadrant. There is centralization of bowel due to the ascites. Moderate stool within the proximal colon. No pneumoperitoneum. No pneumatosis. No dilated loops of small bowel to suggest an obstruction. Pelvic calcifications are consistent with phleboliths. IMPRESSION: 1. Progression of the small bilateral pleural effusions. 2. Ascites. 3. No evidence for bowel obstruction. Electronically signed by: Ryan Davis M.D. 07/05/2017 12:05 PM Laboratory Results 07/05/17 11:21 Red Blood Count 3.49, Mean Corpuscular Volume 86.5, Mean Corpuscular Hemoglobin 28.9, Mean Corpuscular Hemoglobin Concent 33.4, Mean Platelet Volume 8.3, Neutrophils (%) (Auto) 77.9, Lymphocytes (%) (Auto) 11.5, Monocytes (%) (Auto) 9.9, Eosinophils (%) (Auto) 0.3, Basophils (%) (Auto) 0.2, Neutrophils # (Auto) 4.95, Lymphocytes # (Auto) 0.73, Monocytes # (Auto) 0.63, Eosinophils # (Auto) 0.02, Basophils # (Auto) 0.01 07/05/17 11:21 Test 07/05/17 11:21 07/05/17 12:15 White Blood Count 6.35 K/uL (4.8-10.8) Red Blood Count 3.49 M/uL (4.2-5.4) Hemoglobin 10.1 g/dL (12.0-16.0) Hematocrit 30.2 % (37-47) Mean Corpuscular Volume 86.5 fL (80-100) Mean Corpuscular Hemoglobin 28.9 pg (25-34) Mean Corpuscular Hemoglobin Concent 33.4 g/dl (32-36) Platelet Count 383 K/uL (130-400) Mean Platelet Volume 8.3 fL (7.4-10.4) Neutrophils (%) (Auto) 77.9 % Lymphocytes (%) (Auto) 11.5 % Monocytes (%) (Auto) 9.9 % Eosinophils (%) (Auto) 0.3 % Basophils (%) (Auto) 0.2 % Neutrophils # (Auto) 4.95 K/uL (1.4-6.5) Lymphocytes # (Auto) 0.73 K/uL (1.2-3.4) Monocytes # (Auto) 0.63 K/uL (0.11-0.59) Eosinophils # (Auto) 0.02 K/uL (0-0.5) Basophils # (Auto) 0.01 K/uL (0-0.2) RDW Standard Deviation 43.8 fL (36.4-46.3) RDW Coefficient of Variation 13.9 % (11.5-14.5) Immature Granulocyte % (Auto) 0.2 % Immature Granulocyte # (Auto) 0.01 K/uL (0.00-0.02) Prothrombin Time 10.7 SECONDS (9.0-12.0) Prothromb Time International Ratio 1.0 (0.9-1.1) Activated Partial Thromboplast Time 24.3 SECONDS (21.0-31.0) Partial Thromboplastin Ratio 0.9 Anion Gap 7.0 mmol/L (3-11) Est Creatinine Clear Calc Drug Dose 217.3 ml/min Estimated GFR () 145.4 Estimated GFR (Non- 125.4 BUN/Creatinine Ratio 25.6 (10-20) Calcium Level 8.8 mg/dl (8.5-10.1) Total Bilirubin 0.9 mg/dl (0.2-1) Direct Bilirubin 0.2 mg/dl (0-0.2) Aspartate Amino Transf (AST/SGOT) 20 U/L (15-37) Alanine Aminotransferase (ALT/SGPT) 15 U/L (12-78) Alkaline Phosphatase 94 U/L (45-117) Total Protein 6.3 gm/dl (6.4-8.2) Albumin 2.6 gm/dl (3.4-5.0) Lipase 49 U/L (73-393) Urine Color DK YELLOW Urine Appearance CLEAR (CLEAR) Urine pH 6.0 (4.5-7.5) Urine Specific [place] 1.026 (1.000-1.030) Urine Protein 1+ (NEG) Urine Glucose (UA) NEG (NEG) Urine Ketones 1+ (NEG) Urine Occult Blood NEG (NEG) Urine Nitrite NEG (NEG) Urine Bilirubin NEG (NEG) Urine Urobilinogen NEG (NEG) Urine Leukocyte Esterase NEG (NEG) Urine WBC (Auto) 1-5 /hpf (0-5) Urine RBC (Auto) 0-4 /hpf (0-4) Urine Hyaline Casts (Auto) /lpf (0-5) Urine Epithelial Cells (Auto) >30 /lpf (0-5) Urine Bacteria (Auto) NEG (NEG) Urine Renal Epithelial Cells 0-5 /lpf (0-5) Urine Pathogenic Casts /lpf (0) Laboratory results per my review. Medications Administered Medications (Trade) Dose Ordered Sig/Luci Route Start Time Stop Time Status Last Admin Dose Admin Sodium Chloride 1,000 ml @ 999 mls/hr Q1H1M STAT IV 07/05/17 10:55 07/05/17 11:55 DC 07/05/17 11:18 999 MLS/HR Ondansetron HCl (Zofran Inj) 4 mg NOW STAT IV 07/05/17 10:55 07/05/17 10:57 DC 07/05/17 11:15 4 MG Morphine Sulfate (MoRPHine SULFATE INJ) 4 mg Q15M PRN IV 07/05/17 11:00 07/05/17 16:28 DC 07/05/17 13:35 4 MG Hydromorphone HCl (Dilaudid Inj) 1 mg NOW STAT IV 07/05/17 14:38 07/05/17 14:40 DC 07/05/17 14:43 1 MG Al Hydrox/Mg Hydrox/Simethicone (Maalox Max Susp) 30 ml NOW STAT PO 07/05/17 14:38 07/05/17 14:40 DC 07/05/17 14:44 30 ML Pantoprazole Sodium (Protonix Tab) 40 mg NOW STAT PO 07/05/17 14:38 07/05/17 14:40 DC 07/05/17 14:44 40 MG Famotidine (Pepcid Tab) 20 mg NOW ONCE PO 07/05/17 14:45 07/05/17 14:46 DC 07/05/17 14:44 20 MG Promethazine HCl 12.5 mg/Sodium Chloride 50.5 ml @ 204 mls/hr Q6H PRN IV 07/05/17 15:45 08/04/17 15:44 07/05/17 17:01 204 MLS/HR Hydromorphone HCl (Dilaudid Inj) 0.5 mg NOW STAT IV 07/05/17 17:06 07/05/17 17:18 DC 07/05/17 17:25 0.5 MG ED Course 1050: The patient was evaluated in room C9. A complete history and physical examination were performed. 1055: Zofran 4 mg IV, NSS 1000 ml @ 999 mls/hr IV. 1100: Morphine Sulfate 4 mg IV. 1301: I discussed the patients case with [facility]. He recommends the patient be further evaluated by the hospital medicine team for pain. 1339: I discussed the patients case with Dr. Cash, [facility] Hospitalist. The patient will be further evaluated. Medical Decision Medication Reconciliation: I attest that I have personally reviewed the patient' s current medications list. Patient was found to have a slightly elevated blood pressure due to circumstances. I do not believe that the patient requires hypertension monitoring. Prior records/ancillary studies reviewed. Triage Nursing notes reviewed. The patient's history was concerning for abdominal pain. Differential diagnosis: Etiologies such as appendicitis, diverticulitis, PUD, biliary pathology, UTI, pancreatitis, obstruction, mesenteric ischemia, aortic pathology, infections, inflammatory bowel disease, renal colic, as well as others were entertained. The patient is a 52-year-old female who presented to the emergency department for an evaluation of abdominal pain. 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 She has significant ascites. She had a paracentesis recently which resulted in a rectus sheath hematoma. The patient return to the emergency department today because of severe pain. Her pain appears to be very poorly controlled. The patient was treated with IV fluids and IV pain medication in the emergency department. On subsequent reevaluation she was only minimally improved. I discussed her presentation with her primary oncologist. He is very concerned that this may represent progression of her underlying carcinoma spread in her abdomen rather than just a rectus sheath hematoma. For this reason I discussed his case with the on-call [facility] hospitalist. They have agreed to evaluate patient in emergency department for further management and disposition. Consults Time Called: [phone] Consulting Physician: Y[facility] Returned Call: [phone] I discussed the patients case with Yuni Koch [facility]. He recommends the patient be further evaluated by the hospital medicine team for pain. Additional Consults: Time Called: 1335 Consulted Physician: Dr. Cash [facility] Hospitalist Returned Call: [phone] Additional Comments: I discussed the patients case with Dr. Cash [facility] Hospitalist. The patient will be further evaluated. Impression Primary Impression: Intractable abdominal pain Additional Impressions: Rectus sheath hematoma Ascites Ovarian cancer Hyponatremia Scribe Attestation The scribe's documentation has been prepared under my direction and personally reviewed by me in its entirety. I confirm that the note above accurately reflects all work, treatment, procedures, and medical decision making performed by me. Departure Information Dispostion Being Evaluated By Hospitalist Referrals Linda Stanley MD (PCP) Patient Instructions My [facility] Problem Qualifiers Additional Impressions: Rectus sheath hematoma Encounter type: subsequent encounter Qualified Codes: S30.1XXD - Contusion of abdominal wall, subsequent encounter Ascites Ascites type: malignant Qualified Codes: R18.0 - Malignant ascites Ovarian cancer Laterality: unspecified laterality Qualified Codes: C56.9 - Malignant neoplasm of unspecified ovary
[2017-07-05] MEDS: MoRPHine SULFATE 4 MG/ML 1 ML CARP\\VIAL IV PRN ×4 (11:16→13:35)
[2017-07-05 11:36] LABS: BASO % 0.2 %; BASO ABS # 0.01 K/uL (0-0.2); COMPLETE YES; EOS % 0.3 %; HEMATOCRIT 30.2 % (37-47); IG% 0.2 %; LYMPH % 11.5 %; LYMPH ABS # 0.73 K/uL (1.2-3.4); MEAN CELL VOLUME 86.5 fL (80-100); MEAN CORPUSCULAR HEMOGLOBIN 28.9 pg (25-34); MEAN CORPUSCULAR HGB CONC 33.4 g/dl (32-36); MEAN PLATELET VOLUME 8.3 fL (7.4-10.4); MONO % 9.9 %; NEUT % 77.9 %; PLATELET COUNT 383 K/uL (130-400); RED BLOOD COUNT 3.49 M/uL (4.2-5.4); WHITE BLOOD COUNT 6.35 K/uL (4.8-10.8)
[2017-07-05 11:47] LABS: PARTIAL THROMBOPLASTIN RATIO 0.9; PROTHROMBIN TIME (PATIENT) 10.7 SECONDS (9.0-12.0)
[2017-07-05 11:57] LABS: BUN/CREATININE RATIO 25.6 (10-20); CALCIUM 8.8 mg/dl (8.5-10.1); CREATININE 0.34 mg/dl (0.60-1.20); POTASSIUM 3.4 mmol/L (3.5-5.1)
--- NOTE | 2017-07-05 12:06 | DIAGNOSTIC IMAGING REPORT ---
CHEST AND ABDOMEN 2 VIEWS HISTORY: Generalized abdominal pain. COMPARISON: Abdomen and pelvis CT 07/02/2017. FINDINGS: A right Port-A-Cath terminates in the superior cavoatrial junction. Small bilateral pleural effusions have progressed. Bibasilar densities favor atelectasis from the pleural fluid. Surgical clips within the left upper quadrant. There is centralization of bowel due to the ascites. Moderate stool within the proximal colon. No pneumoperitoneum. No pneumatosis. No dilated loops of small bowel to suggest an obstruction. Pelvic calcifications are consistent with phleboliths. IMPRESSION: 1. Progression of the small bilateral pleural effusions. 2. Ascites. 3. No evidence for bowel obstruction. Electronically signed by: Ryan Davis M.D. 07/05/2017 12:05 PM Dictated Date/Time: 07/05/2017 12:02 PM
[2017-07-05 12:33] LABS: URINE APPEARANCE CLEAR (CLEAR); URINE BILIRUBIN NEG (NEG); URINE COLOR DK YELLOW; URINE EPITHELIAL CELL AUTO >30 /lpf (0-5); URINE NITRITE NEG (NEG); URINE SPECIFIC GRAVITY 1.026 (1.000-1.030); UROBILINOGEN NEG (NEG)
[2017-07-05 12:38] LABS: REVIEW REQ? YES
[2017-07-05 12:40] LABS: MANUAL MICROSCOPIC REQUIRED? NO
[2017-07-05] MEDS ORDERED: CLR10 PO (12:59)
[2017-07-05] MEDS ORDERED: HYDROmorphone INJ 1 MG/ML SYR IV STA (14:38)
[2017-07-05] MEDS ORDERED: PANTOprazole SOD 40 MG TAB PO STA (14:38)
[2017-07-05] MEDS ORDERED: ALUMINUM/MAGNESIUM/SIMETH (MAALOX MAX) 30 ML UDC PO STA (14:38)
[2017-07-05] MEDS ORDERED: FAMOTIDINE 20 MG TAB PO ONE (14:45)
[2017-07-05] MEDS ORDERED: HYDROmorphone INJ 0.5 MG/0.5 ML SYR IV PRN (15:45)
[2017-07-05] MEDS ORDERED: ACETAMINOPHEN 325 MG TAB PO PRN (15:45)
[2017-07-05] MEDS ORDERED: MoRPHine SULFATE 2 MG/ML CARP IV PRN (15:45)
[2017-07-05] MEDS ORDERED: BISACODYL 10 MG SUPP PR PRN (15:45)
[2017-07-05] MEDS ORDERED: NALOXONE HCL 0.4 MG/1 ML VIAL/CARP IV PRN (16:30)
[2017-07-05] MEDS: PROMETHAZINE HCL INJ 12.5 MG in SODIUM CHLORIDE 0.9% 50ML 50 ML IV PRN (17:01)
[2017-07-05] MEDS ORDERED: HYDROmorphone INJ 0.5 MG/0.5 ML SYR IV STA (17:06)
--- NOTE | 2017-07-05 17:07 | DIAGNOSTIC IMAGING REPORT ---
ASCITES-ABDOMEN LIMITED CLINICAL HISTORY: ascites, bhavna for paracentesis ascites TECHNIQUE: Ultrasound COMPARISON STUDY: 06/27/2013 FINDINGS: Mild ascites. No major change compared to the prior study. IMPRESSION: Mild ascites. No major change from the prior study. The above report was generated using voice recognition software. It may contain grammatical, syntax or spelling errors. Electronically signed by: Bhavna Stockton M.D. 07/05/2017 5:06 PM Dictated Date/Time: 07/05/2017 5:05 PM
[2017-07-05] MEDS ORDERED: HYDROmorphone INJ 0.5 MG/0.5 ML SYR ONE (17:09)
--- NOTE | 2017-07-05 17:10 | DIAGNOSTIC IMAGING REPORT ---
(LIVER) ABDOMEN LIMITED CLINICAL HISTORY: evaluate liver for cause of ascites abnormal liver function tests TECHNIQUE: Ultrasound COMPARISON STUDY: 07/02/2017 FINDINGS: moderate gallbladder sludge. Trace perihepatic ascites. Liver appears uniform. Possible early cirrhotic change. No biliary ductal distention IMPRESSION: Possible early cirrhotic change of the liver. Moderate gallbladder sludge. Normal caliber bile duct. The above report was generated using voice recognition software. It may contain grammatical, syntax or spelling errors. Electronically signed by: Quentin Stockton M.D. 07/05/2017 5:08 PM Dictated Date/Time: 07/05/2017 5:06 PM
--- NOTE | 2017-07-05 17:12 | DIAGNOSTIC IMAGING REPORT ---
ABDOMEN LIMITED (US) HISTORY: Ascites rectus sheath, evaluate hematoma. COMPARISON: 07/02/2017 FINDINGS: Pancreas: The pancreas demonstrates a normal echotexture. Liver: Potential early cirrhotic change Gallbladder: Gallbladder sludge CBD: 5 mm Right kidney: No hydronephrosis. IMPRESSION: 1. Mild ascites. 2. Pocket of ascites was localized and marked in the left lower quadrant. 3. Intramuscular hematoma right lower quadrant in the rectus musculature. This is been previously described and measures 7 x 2 x 5.5 cm The above report was generated using voice recognition software. It may contain grammatical, syntax or spelling errors. Electronically signed by: Quentin Stockton M.D. 07/05/2017 5:11 PM Dictated Date/Time: 07/05/2017 5:09 PM
[2017-07-05 18:00] VITALS: BP 137/87; PULSE 125; TEMP 36.8; O2SAT 94; BMI 32.3
--- NOTE | 2017-07-05 18:30 | History and Physical ---
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 The patient was started on her first cycle of chemotherapy regimen last 06/28/17 with doxirubicin. She is planned for 6 total cycles and follows with Dr. Varner of [facility] heme/onc. The patient was admitted here last week for worsening abdominal pain. She had a therapeutic paracentesis performed on 06/29/17 for ascites along with her abdominal workup. After the procedure, she did not feel much better, so called her physician daily last week after noticing her pain was not resolving. On Tuesday she came back to the ER due to worsening abdominal pain, and was kept overnight. She was treated with pain medication, and noted to have constipation at that time. Her last good bowel movement was Tuesday. She notes she seems have been peeing less , although she drinks 64 oz of water minimum on a regular basis per day. She also notes she has gained ~ 5 lbs in the past week, although her diet has been poor. The patient has been nauseous today, and had 1 episode of vomitting this morning. An appointment was made for with Dr. Varner today at 3:15 but her pain continued to worsen to the point where she couldn't bear it, so came to the ER. Here in the ED the patient was found to have hyponatremia with VC=250, hypokalemia =3.4, decreased Cr. 0.34. Her Hgb is slightly decreased at 10.1. Past Medical/Surgical History Medical Problems: (1) Aneurysm Status: Resolved (2) Cancer of fallopian tube Status: Chronic (3) HTN (hypertension) Status: Chronic Surgical Problems: (1) H/O tubal ligation Status: Resolved Family History FH: HTN (hypertension) FH: cancer Social History Smoking Status: Never Smoker Smokeless Tobacco Use: No Alcohol Use: none Drug Use: none Marital Status: Housing status: lives with family Occupational Status: employed Immunizations History of Influenza Vaccine: Yes History of Tetanus Vaccine?: Yes History of Pneumococcal: Unknown History of Hepatitis B Vaccine: Unknown Multi-Drug Resistant Organisms History of MDRO: No Allergies Coded Allergies: Flasher (Verified Allergy, Severe, Swelling of face,throat,tongue and under the arms., 07/05/17) Reported by PT. Polyethylene Glycol (Unverified Allergy, Unknown, HIVES, 07/05/17) Prochlorperazine (Unverified Allergy, Unknown, HIVES, 07/05/17) Uncoded Allergies: ARTURO (Allergy, Severe, Swelling of face,throat,tongue and under the arms., 10/01/14) Reported by PT TAPE (Allergy, Unknown, 01/03/03) Home Medications Scheduled Amlodipine Besylate (Amlodipine Besylate), 10 MG PO HS Calcium W/ Magnesium (Calcium & Magnesium), 1 TAB PO DAILY Captopril/Hctz (Capozide), 1 TAB PO BID Loratadine (Claritin), 10 MG PO DAILY Multiple Vitamins W/ Minerals (One Daily For Women), 1 TAB PO DAILY Ranitidine (Zantac), 150 MG PO BID Scheduled PRN Hydrocodone/Acetaminophen 5MG/325MG (Holt 5MG/325MG), 1 TABLET PO DAILY PRN for Pain Review of Systems Constitutional: + fatigue, + problem reported (weight gain), No fever, No chills, No sweats ENT: No sore throat, No trouble swallowing Respiratory: No cough, No shortness of breath, No dyspnea on exertion, No dyspnea at rest Cardiovascular: No chest pain, No orthopnea, No palpitations Abdomen: + pain, + nausea, + vomiting, + constipation, No diarrhea, No GI bleeding Musculoskeletal: + swelling, No joint pain, No muscle pain, No calf pain Genitourinary - Female: No dysuria, No urinary frequency, No hematuria Neurologic: No weakness, No numbness/tingling, No balance problems Integumentary: No rash Physical Exam Vital Signs Date Time Temp Pulse Resp B/P (MAP) Pulse Ox O2 Delivery O2 Flow Rate FiO2 07/05/17 14:48 114 31 158/99 99 Room Air 07/05/17 13:37 103 32 152/105 97 07/05/17 12:18 97 07/05/17 12:10 98 28 150/98 97 Room Air 07/05/17 10:36 36.5 112 18 139/87 97 General Appearance: WD/WN, no apparent distress Head: normocephalic, atraumatic Eyes: PERRL, EOMI ENT: hearing grossly normal, pharynx normal Neck: supple, no JVD Respiratory/Chest: chest non-tender, no respiratory distress, + pertinent finding (diminished breath sound in bilateral bases) Cardiovascular: no murmur, normal peripheral pulses, + tachycardia (regular rhythm) Abdomen/GI: + pertinent finding (+ distended, +vertical scar over abdomen, + hypoactive bowel sounds, no fluid wave. + pain with palpation in the LLQ and LUQ ,) Back: normal inspection Extremities/Musculoskelatal: no calf tenderness, no pedal edema Neurologic/Psych: alert, normal mood/affect, normal reflexes Skin: normal color, warm/dry Diagnostics Laboratory Results Results Past 24 Hours Test 07/05/17 11:21 07/05/17 12:15 Range/Units White Blood Count 6.35 4.8-10.8 K/uL Red Blood Count 3.49 4.2-5.4 M/uL Hemoglobin 10.1 12.0-16.0 g/dL Hematocrit 30.2 37-47 % Mean Corpuscular Volume 86.5 80-100 fL Mean Corpuscular Hemoglobin 28.9 25-34 pg Mean Corpuscular Hemoglobin Concent 33.4 32-36 g/dl Platelet Count 383 130-400 K/uL Mean Platelet Volume 8.3 7.4-10.4 fL Neutrophils (%) (Auto) 77.9 % Lymphocytes (%) (Auto) 11.5 % Monocytes (%) (Auto) 9.9 % Eosinophils (%) (Auto) 0.3 % Basophils (%) (Auto) 0.2 % Neutrophils # (Auto) 4.95 1.4-6.5 K/uL Lymphocytes # (Auto) 0.73 1.2-3.4 K/uL Monocytes # (Auto) 0.63 0.11-0.59 K/uL Eosinophils # (Auto) 0.02 0-0.5 K/uL Basophils # (Auto) 0.01 0-0.2 K/uL RDW Standard Deviation 43.8 36.4-46.3 fL RDW Coefficient of Variation 13.9 11.5-14.5 % Immature Granulocyte % (Auto) 0.2 % Immature Granulocyte # (Auto) 0.01 0.00-0.02 K/uL Prothrombin Time 10.7 9.0-12.0 SECONDS Prothromb Time International Ratio 1.0 0.9-1.1 Activated Partial Thromboplast Time 24.3 21.0-31.0 SECONDS Partial Thromboplastin Ratio 0.9 Sodium Level 129 136-145 mmol/L Potassium Level 3.4 3.5-5.1 mmol/L Chloride Level 94 98-107 mmol/L Carbon Dioxide Level 28 21-32 mmol/L Anion Gap 7.0 3-11 mmol/L Blood Urea Nitrogen 9 7-18 mg/dl Creatinine 0.34 0.60-1.20 mg/dl Est Creatinine Clear Calc Drug Dose 217.3 ml/min Estimated GFR () 145.4 Estimated GFR (Non- 125.4 BUN/Creatinine Ratio 25.6 10-20 Random Glucose 104 70-99 mg/dl Calcium Level 8.8 8.5-10.1 mg/dl Total Bilirubin 0.9 0.2-1 mg/dl Direct Bilirubin 0.2 0-0.2 mg/dl Aspartate Amino Transf (AST/SGOT) 20 15-37 U/L Alanine Aminotransferase (ALT/SGPT) 15 12-78 U/L Alkaline Phosphatase 94 45-117 U/L Total Protein 6.3 6.4-8.2 gm/dl Albumin 2.6 3.4-5.0 gm/dl Lipase 49 73-393 U/L Urine Color DK YELLOW Urine Appearance CLEAR CLEAR Urine pH 6.0 4.5-7.5 Urine Specific [place] 1.026 1.000-1.030 Urine Protein 1+ NEG Urine Glucose (UA) NEG NEG Urine Ketones 1+ NEG Urine Occult Blood NEG NEG Urine Nitrite NEG NEG Urine Bilirubin NEG NEG Urine Urobilinogen NEG NEG Urine Leukocyte Esterase NEG NEG Urine WBC (Auto) 1-5 0-5 /hpf Urine RBC (Auto) 0-4 0-4 /hpf Urine Hyaline Casts (Auto) 0-5 /lpf Urine Epithelial Cells (Auto) >30 0-5 /lpf Urine Bacteria (Auto) NEG NEG Urine Renal Epithelial Cells 0-5 0-5 /lpf Urine Pathogenic Casts 0 /lpf Diagnostic Radiology CHEST AND ABDOMEN 2 VIEWS HISTORY: Generalized abdominal pain. COMPARISON: Abdomen and pelvis CT 07/02/2017. FINDINGS: A right Port-A-Cath terminates in the superior cavoatrial junction. Small bilateral pleural effusions have progressed. Bibasilar densities favor atelectasis from the pleural fluid. Surgical clips within the left upper quadrant. There is centralization of bowel due to the ascites. Moderate stool within the proximal colon. No pneumoperitoneum. No pneumatosis. No dilated loops of small bowel to suggest an obstruction. Pelvic calcifications are consistent with phleboliths. IMPRESSION: 1. Progression of the small bilateral pleural effusions. 2. Ascites. 3. No evidence for bowel obstruction. Electronically signed by: Ryan Davis M.D. 07/05/2017 12:05 PM Dictated Date/Time: 07/05/2017 12:02 PM The status of this report is Signed. 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 The patient was started on her first cycle of chemotherapy regimen last 06/28/17 with doxirubicin. She is planned for 6 total cycles and follows with Dr. Varner of [facility] heme/onc. The patient was admitted here last week for worsening abdominal pain. She had a therapeutic paracentesis performed on 06/29/17 for ascites, she represents with worsening abdominal pain Fallopian Tube carcinoma Rectus sheath hematoma s/p paracentesis Abdominal carcinomatosis - Will admit to med/surg - Heme/onc consulted, follows with Dr. Varner at [facility] - Pt started her first cycle of doxirubicin 06/28/17, planned for total of 6 cycles, 1 every 4 weeks. She has not received any other chemo or XRT prior to this - Abdominal pain being cause by hematoma and ascites accumulation. Hematoma formation was secondary to paracentesis last week. Will check an ultrasound of the abdomen to evaluate the rectus sheath and size of hematoma, also the liver to assess for causes of ascites, and then for volume of ascites. Diagnostic paracentesis likely should be performed to r/o infection despite afebrile and without leukocytosis. Diagnostic paracentesis was not performed last time. - CT abdomen reviewed from 07/02- showing multiple hematomas, largestm easures 8 x 6.2 x 1.8 cm. - CXR reviewed showing worsening small bilateral pleural effusions - Pain control with morphine and dilaudid in the ER, will switch to a dilaudid HEATSET WINDER OPERATOR for better pain control - Antiemetics with zofran and phenergan - pt allergic to compazine (hives) - Bowel regimen with dulcolax tabs and suppository prn. - PT/OT consults Hypervolemia/ third spacing - Unlikely that diuretic would help with amount of fluid - if worsening in the legs could use small dose of lasix. Hyponatremia - Likely polydipsia induced with drinking large quantities of water HTN - Will continue captopril 50 mg BID and amlodipine 10 mg QHS for now. DVT ppx: Teds, SCDs CODE STATUS: FULL CODE Disposition: From home, lives with family, prognosis unknown Level of Care Med/Surg Advanced Directives Existing Advance Directive: No Existing Living Will: No Existing Power of Heat Treat Furnace Operator: No Existing Health Care Proxy: No Resuscitation Status FULL RESUSCITATION VTE Prophylaxis VTE Risk Assessment Done? Y/N: Yes Risk Level: Low Given or contraindicated: T.E.D. Stockings, SCD's Note Attending Admission Note & Attestation: Pt seen/examined, chart reviewed, care plan d/w MARK Kendlal. I agree w/ the valdivia components of her admission documentation. Unfortunate 52yo female with known fallopian tube cancer and carcinomatosis - recent admission for pain control after having developed a rectus sheath hematoma following a therapeutic paracentesis on 06/27/17 - presents with ongoing generalized abdominal pain despite use of oral narcotics at home. Denies fevers or chills but has had very poor appetite. Just started cycle #1 of chemotherapy about 1 week ago under the care of Dr. Tobi Varner ([facility] Heme/onc). PMH, PSH, allergies, meds, sochx, famhx, ros - reviewed vitals - tachy, no fever gen - looks ill, uncomfortable mouth - MM pasty neck - no JVD heart - tachy lungs - decreased BS bases abd - distended, BS+, generalized tenderness, ecchymoses in the lower quadrants , no HSM, no peritoneal signs/guarding ext - trace-1+ edema b/l labs - Na 129 K 3.4 abd x-rays mod stool, no SBO abd u/s - mild ascites A/P: Ongoing intractable abdominal pain in the setting of fallopian tube carcinoma and presumed carcinomatosis. Her abdominal pain could be 2nd to - * SBP * rectus sheath hematoma * cancer/carcinomatosis itself Initially I was planning to do diagnostic paracentesis in the ER tonight. However, in light of the fact there is only mild ascites on u/s, and the fact she had a rectus sheath hematoma develop following her last paracentesis, I elected to defer on the diagnostic tap tonight due to concern of high risk of complication. Instead will cover for SBP with rocephin and ask radiology to perform a DIAGNOSTIC paracentesis in the AM under u/s guidance. Agree with dilaudid HEATSET WINDER OPERATOR. Agree with IVF. Check urine osm, urine Na, and serum osm. Re-eval in the AM. Ashkan Cash MD
[2017-07-05] MEDS ORDERED: NRV/10 PO (18:52)
[2017-07-05] MEDS: SODIUM CHLORIDE 0.9% 1000ML 1,000 ML IV SCH (18:52)
[2017-07-05] MEDS ORDERED: CAPT50TA PO (18:52)
[2017-07-05] MEDS ORDERED: MULT1TAB22 PO (18:52)
[2017-07-05] MEDS: HYDROmorphone HCL 0.5MG/ML 50 ML CASSETTE IV PRN (19:01)
[2017-07-05 19:15] VITALS: BP 145/91; PULSE 120; TEMP 37.1; O2SAT 92
[2017-07-05] MEDS: CAPTOPRIL 25 MG TAB PO SCH ×2 (19:20→23:59)
[2017-07-05] MEDS: BISACODYL 5 MG TABEC PO PRN (19:21)
[2017-07-05] MEDS: CEFTRIAXONE SOD INJ 1 GM in DEXTROSE 5% ADD-VANTAGE 50ML 50 ML IV SCH (19:21)
[2017-07-05] MEDS: RANITIDINE HCL 150 MG TAB PO SCH (20:01)
[2017-07-05] MEDS ORDERED: ZNTT/150 PO (20:18)
[2017-07-05] MEDS ORDERED: POTASSIUM CHLORIDE 10 MEQ TABCR PO STA (20:31)
--- NOTE | 2017-07-05 20:48 | DIAGNOSTIC IMAGING REPORT ---
VENOUS DOPPLER LWR EXT BILA HISTORY: Pain. Edema. edema, cancer, eval for dvt COMPARISON STUDY: None. FINDINGS: There is normal compressibility, flow, and augmentation within the bilateral lower extremity deep venous systems. IMPRESSION: No DVT within the right or left lower extremity. The above report was generated using voice recognition software. It may contain grammatical, syntax or spelling errors. Electronically signed by: Quentin Stockton M.D. 07/05/2017 8:47 PM Dictated Date/Time: 07/05/2017 8:46 PM
[2017-07-05] MEDS ORDERED: ENOXAPARIN 40 MG/0.4 ML SYR SQ SCH (21:00)
[2017-07-05] MEDS: NSS + 20MEQ KCL 1000ML 1,000 ML IV SCH (21:21)
[2017-07-05] MEDS: ONDANSETRON INJ 2 MG/ML 2 ML VIAL IV PRN (21:21)
[2017-07-05 23:50] VITALS: BP 131/89; PULSE 107; TEMP 36.7; O2SAT 90
[2017-07-06 03:48] VITALS: BP 128/83; PULSE 119; PULSE 89; TEMP 37; O2SAT 94
[2017-07-06 06:24] LABS: BASO % 0.3 %; BASO ABS # 0.02 K/uL (0-0.2); COMPLETE YES; EOS % 0.9 %; HEMATOCRIT 31.3 % (37-47); IG% 0.3 %; LYMPH % 16.5 %; LYMPH ABS # 1.13 K/uL (1.2-3.4); MEAN CELL VOLUME 87.2 fL (80-100); MEAN CORPUSCULAR HEMOGLOBIN 28.4 pg (25-34); MEAN CORPUSCULAR HGB CONC 32.6 g/dl (32-36); MEAN PLATELET VOLUME 8.3 fL (7.4-10.4); MONO % 12.2 %; NEUT % 69.8 %; PLATELET COUNT 424 K/uL (130-400); RED BLOOD COUNT 3.59 M/uL (4.2-5.4); WHITE BLOOD COUNT 6.86 K/uL (4.8-10.8)
[2017-07-06 06:59] LABS: BUN/CREATININE RATIO 26.6 (10-20); CALCIUM 8.9 mg/dl (8.5-10.1); CREATININE 0.4 mg/dl (0.60-1.20); POTASSIUM 4.4 mmol/L (3.5-5.1)
[2017-07-06 07:31] VITALS: BP 138/91; PULSE 114; TEMP 37; O2SAT 95
[2017-07-06] MEDS: AMLODIPINE BESYLATE 5 MG TAB PO SCH ×3 (08:00→21:00)
[2017-07-06] MEDS: LORATADINE 10 MG TAB PO SCH ×3 (08:00→20:59)
[2017-07-06] MEDS: HYDROmorphone HCL 0.5MG/ML 50 ML CASSETTE IV PRN (08:16)
[2017-07-06] MEDS: CEROVITE ADV FORMULA TAB PO SCH (08:17)
[2017-07-06] MEDS: CAPTOPRIL 25 MG TAB PO SCH ×2 (08:17→20:59)
[2017-07-06] MEDS: RANITIDINE HCL 150 MG TAB PO SCH ×2 (08:18→20:59)
[2017-07-06] MEDS: BISACODYL 5 MG TABEC PO PRN ×2 (08:24→21:03)
[2017-07-06] MEDS ORDERED: NURSING VERBAL MED ORDER ONE (09:00)
[2017-07-06] MEDS: NSS + 20MEQ KCL 1000ML 1,000 ML IV SCH ×2 (09:37→23:11)
[2017-07-06] MEDS: ONDANSETRON INJ 2 MG/ML 2 ML VIAL IV PRN (09:37)
--- NOTE | 2017-07-06 10:18 | Medical Student: [facility] ---
Med Student Progress Note Date of Service Jul 06, 2017. Subjective Pt evaluation today including: conversation w/ patient, conversation w/ family , physical exam, chart review, lab review, review of studies Voiding: voiding difficulty (has urge to void but unable to) Mrs. 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 She was recently admitted to [facility] on 07/02/17 for abdominal pain and ascites secondary to carcinomatosis and requiring paracentesis. Following that procedure she developed a RLQ rectus sheath hematoma. She was examined sitting up in bed and is in constant abdominal pain, rated 4/10 currently and 9/10 at the worst. She describes the pain as achey but it becomes sharp with certain movements. Her mouth feels dry despite normal PO fluid intake. She has the urge to urinate but has a hard time doing so. She also notes constipation since Tuesday. This is not new to her as she is on norco for pain at home. Denies fever, chills, chest pain , palpitations, diarrhea, numbness/tingling, calf pain. Review of Systems Constitutional: No fever, No chills Eyes: No worsening of vision, No diplopia ENT: No sore throat, No trouble swallowing Respiratory: + shortness of breath, No cough Cardiac: No chest pain, No palpitations Abdomen: + pain, + nausea, + constipation, No vomiting, No diarrhea Musculoskeletal: No joint pain, No calf pain Female : + problem reported (urinary retention), No dysuria Neurologic: No paralysis, No numbness/tingling Heme: No abnormal bleeding/bruising, No clotting problems Skin: No rash, No itch Objective Vital Signs Date Time Temp Pulse Resp B/P (MAP) Pulse Ox O2 Delivery O2 Flow Rate FiO2 07/06/17 08:58 Room Air 07/06/17 07:31 37.0 114 16 138/91 (107) 95 Room Air 07/06/17 03:48 37.0 119 20 128/83 (98) 94 Room Air 07/06/17 00:00 Room Air 07/05/17 23:50 36.7 107 18 131/89 (103) 90 Room Air 07/05/17 19:15 37.1 120 20 145/91 (109) 92 Room Air 07/05/17 18:00 36.8 125 26 137/87 94 Room Air 07/05/17 17:25 122 28 160/99 94 07/05/17 16:30 104 28 151/95 98 Room Air 07/05/17 14:48 114 31 158/99 99 Room Air 07/05/17 13:37 103 32 152/105 97 07/05/17 12:18 97 07/05/17 12:10 98 28 150/98 97 Room Air 07/05/17 10:36 36.5 112 18 139/87 97 Physical Exam General Appearance: + moderate distress Eyes: bilateral eyes normal inspection, bilateral eyes PERRL, bilateral eyes EOMI ENT: normal ENT inspection, hearing grossly normal, pharynx normal Neck: supple, no adenopathy, no carotid bruits Respiratory/Chest: no respiratory distress, no accessory muscle use, + decreased breath sounds (bilateral lower lung bowser) Cardiovascular: no gallop, no murmur, + tachycardia, + normal peripheral pulses Abdomen: normal bowel sounds, + tenderness (diffusely tender with focal tenderness at RLQ around hematoma), + hernia (midline umbilical hernia) Extremities: normal range of motion, non-tender, normal inspection, no calf tenderness, + pedal edema (2+ bilaterally) Neurologic/Psychiatric: no motor/sensory deficits, alert, oriented x 3 Skin: normal color, no rash, + pertinent finding (lower abdomen and RLQ bruising superficial to hematoma) Laboratory Results Last 24 Hours Test 07/05/17 11:21 07/05/17 12:15 07/06/17 05:57 White Blood Count 6.35 K/uL 6.86 K/uL Red Blood Count 3.49 M/uL 3.59 M/uL Hemoglobin 10.1 g/dL 10.2 g/dL Hematocrit 30.2 % 31.3 % Mean Corpuscular Volume 86.5 fL 87.2 fL Mean Corpuscular Hemoglobin 28.9 pg 28.4 pg Mean Corpuscular Hemoglobin Concent 33.4 g/dl 32.6 g/dl Platelet Count 383 K/uL 424 K/uL Mean Platelet Volume 8.3 fL 8.3 fL Neutrophils (%) (Auto) 77.9 % 69.8 % Lymphocytes (%) (Auto) 11.5 % 16.5 % Monocytes (%) (Auto) 9.9 % 12.2 % Eosinophils (%) (Auto) 0.3 % 0.9 % Basophils (%) (Auto) 0.2 % 0.3 % Neutrophils # (Auto) 4.95 K/uL 4.79 K/uL Lymphocytes # (Auto) 0.73 K/uL 1.13 K/uL Monocytes # (Auto) 0.63 K/uL 0.84 K/uL Eosinophils # (Auto) 0.02 K/uL 0.06 K/uL Basophils # (Auto) 0.01 K/uL 0.02 K/uL RDW Standard Deviation 43.8 fL 45.3 fL RDW Coefficient of Variation 13.9 % 14.2 % Immature Granulocyte % (Auto) 0.2 % 0.3 % Immature Granulocyte # (Auto) 0.01 K/uL 0.02 K/uL Prothrombin Time 10.7 SECONDS Prothromb Time International Ratio 1.0 Activated Partial Thromboplast Time 24.3 SECONDS Partial Thromboplastin Ratio 0.9 Sodium Level 129 mmol/L 130 mmol/L Potassium Level 3.4 mmol/L 4.4 mmol/L Chloride Level 94 mmol/L 97 mmol/L Carbon Dioxide Level 28 mmol/L 28 mmol/L Anion Gap 7.0 mmol/L 5.0 mmol/L Blood Urea Nitrogen 9 mg/dl 11 mg/dl Creatinine 0.34 mg/dl 0.40 mg/dl Est Creatinine Clear Calc Drug Dose 217.3 ml/min 186.4 ml/min Estimated GFR () 145.4 137.8 Estimated GFR (Non- 125.4 118.9 BUN/Creatinine Ratio 25.6 26.6 Random Glucose 104 mg/dl 97 mg/dl Calcium Level 8.8 mg/dl 8.9 mg/dl Total Bilirubin 0.9 mg/dl 0.9 mg/dl Direct Bilirubin 0.2 mg/dl 0.2 mg/dl Aspartate Amino Transf (AST/SGOT) 20 U/L 19 U/L Alanine Aminotransferase (ALT/SGPT) 15 U/L 15 U/L Alkaline Phosphatase 94 U/L 101 U/L Total Protein 6.3 gm/dl 6.4 gm/dl Albumin 2.6 gm/dl 2.6 gm/dl Lipase 49 U/L Urine Color DK YELLOW Urine Appearance CLEAR Urine pH 6.0 Urine Specific [place] 1.026 Urine Protein 1+ Urine Glucose (UA) NEG Urine Ketones 1+ Urine Occult Blood NEG Urine Nitrite NEG Urine Bilirubin NEG Urine Urobilinogen NEG Urine Leukocyte Esterase NEG Urine WBC (Auto) 1-5 /hpf Urine RBC (Auto) 0-4 /hpf Urine Hyaline Casts (Auto) /lpf Urine Epithelial Cells (Auto) >30 /lpf Urine Bacteria (Auto) NEG Urine Renal Epithelial Cells 0-5 /lpf Urine Pathogenic Casts /lpf Osmolality 275 mOsm/kg Assessment and Plan Assessment and Plan: This is a 52yo female with 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 She underwent paracentesis on 06/28/17 with symptomatic relief. She is in considerable pain today requiring JOCKEY VALET hydromorphone. She follows with Dr. Varner [facility] oncology. Plan 1. Fallopian tube carcinoma s/p total hysterectomy and currently on chemotherapy (doxorubicin) -CXR shows small bilateral pleural effusions -serum osmolarity 275 -abdominal US shows RLQ hematoma 7x2x2.5cm and LLQ mild ascites -liver US shows early cirrhotic changes, gallbladder sludge, NL biliary duct caliber -BLE Dopplers negative for DVT -consult with [facility] heme/onc requested -consider consult IR for repeat drainage of ascites for diagnostic value r/o SBP and symptomatic relief -NPO for potential diagnostic paracentesis -continue ceftriaxone 1g IV empiric therapy for SBP -hydromorphone 0.5mg JOCKEY VALET, 20min lockout, no continuous infusion -zofran 4mg IV q6h prn nausea -promethazine 12.5mg IV q6h prn nausea -IV nss + 20meq KCl @ 75mls/hr -PT/OT eval 2. Hyponatremia, Na 129 on admission, up to 130 on 07/06/17 -IV nss + 20meq KCl @ 75mls/hr -repeat BMP in AM -repeat CBC in AM 3. Hypervolemia/edema -increased leg edema in the past week -consider lasix 10mg IV once 4. Bilateral pleural effusions -consider lasix 10mg IV once 5. Constipation -senna 1 tab PO daily -magnesium hydroxide 17g PO daily -colace 100mg BID # DVT prophylaxis -hold pharmacologic AC due to abdominal hematoma -SCD -ambulate as tolerated Discharge planning -Location: home -Date: TBD Continued [facility] stay due to: inadequate oral pain control, voiding difficulties Discharge planning: home Reviewed: Pt Seen/Exam by Me History See my note for details. Assessment/Plan 52 y/o F with 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 She underwent paracentesis on 06/28/17 with mild symptomatic relief, however she developed a hematoma shortly after that has added to her pain. She is in considerable pain today requiring JOCKEY VALET hydromorphone. She follows with Dr. Varner [facility] oncology. Fallopian tube carcinoma s/p total hysterectomy and currently on chemotherapy ( doxorubicin) -CXR shows small bilateral pleural effusions -abdominal US shows RLQ hematoma 7x2x2.5cm and LLQ mild ascites -liver US shows early cirrhotic changes, gallbladder sludge, NL biliary duct caliber -b/l LE US neg for DVT -heme/onc c/s pending, pt requesting to see Dr. Grijalva. I did discuss this with him and he will see pt in AM -consider consult IR for repeat drainage of ascites for diagnostic value r/o SBP and symptomatic relief -Ceftriaxone for empiric therapy for SBP started on admission. Does not seem to be a factor given US and will d/c -hydromorphone JOCKEY VALET, IVF and PRN antiemetics Palliative care c/s Hyponatremia, Na 129 on admission, up to 130 on 07/06/17 -IV nss + 20meq KCl @ 75mls/hr Monitor Hypervolemia/edema/pleural effusions lasix 20mg IV daily Pt aware that this will likely help her pleural effusions and LE edema, but may not help with ascites Constipation: possibly related to ascites, no s/sx c/w SBO -senna 1 tab PO daily -magnesium hydroxide 17g PO daily -colace 100mg BID # DVT prophylaxis -hold pharmacologic AC due to abdominal hematoma -SCD -ambulate as tolerated Full code
[2017-07-06 12:00] VITALS: BP 140/86; PULSE 107; TEMP 36.7; O2SAT 96
[2017-07-06 16:07] VITALS: BP 131/86; PULSE 118; TEMP 36.7; O2SAT 95
--- NOTE | 2017-07-06 16:21 | Progress Note ---
Subjective Date of Service: Jul 06, 2017. Subjective Pt evaluation today including: conversation w/ patient, conversation w/ family , conversation w/ management consultant Pt's pain is better controlled with increased HOBBING MACHINE OPERATOR dosing but still having pain. Is making some urine, but not as much as she feels like she has pressure from. No burning. Last bowel movement was 07/04. She does not feel constipation. SOB with exertion, but not at rest. Has LE swelling b/l. Pt states she did not feel much relief s/p paracentesis last week and that small amount of relief was replaced with pain related to appearance of hematoma. Overall, she still feels she has pain related to fluid pressure as well though. Pt states the size of the hematoma is stable, but that it is getting darker. Pt is quite anxious and frustrated as heme/onc has not been in to see her yet. She was told in the ED that she would be seen and there would be a intervention done, however this has not happened. Pt denies fever, chest pain, n/v/c/d, LE pain. Problem List Medical Problems: (1) Abdominal hemorrhage Status: Acute (2) Abdominal pain Status: Acute (3) Allergic reaction Status: Acute (4) Ascites Status: Acute (5) Hypokalemia Status: Acute (6) Hyponatremia Status: Acute (7) Hyponatremia Status: Acute (8) Intractable abdominal pain Status: Acute (9) Ovarian cancer Status: Acute (10) Rectus sheath hematoma Status: Acute Review of Systems All Other Systems: Reviewed and Negative Objective Vital Signs Date Time Temp Pulse Resp B/P (MAP) Pulse Ox O2 Delivery O2 Flow Rate FiO2 07/06/17 12:00 36.7 107 16 140/86 (104) 96 Room Air 07/06/17 08:58 Room Air 07/06/17 07:31 37.0 114 16 138/91 (107) 95 Room Air 07/06/17 03:48 37.0 119 20 128/83 (98) 94 Room Air 07/06/17 00:00 Room Air 07/05/17 23:50 36.7 107 18 131/89 (103) 90 Room Air 07/05/17 19:15 37.1 120 20 145/91 (109) 92 Room Air 07/05/17 18:00 36.8 125 26 137/87 94 Room Air 07/05/17 17:25 122 28 160/99 94 07/05/17 16:30 104 28 151/95 98 Room Air Physical Exam General Appearance: no apparent distress, + mild distress (anxious and tearful at times) Eyes: normal inspection, EOMI Respiratory/Chest: no respiratory distress, + crackles (b/l bases and minimal) Cardiovascular: regular rate, rhythm, + normal peripheral pulses Abdomen: soft (area of hardness medially c/w hernia), + distended, + tenderness (diffuse, hematoma is TTP) Extremities: non-tender, + pedal edema (b/l 1+ pitting) Neurologic/Psychiatric: alert, normal mood/affect, oriented x 3 Skin: warm/dry, + pertinent finding (there is discoloration c/w bruising along R sided lateral to medial pelvis) Laboratory Results Last 24 Hours Test 07/06/17 05:57 White Blood Count 6.86 K/uL Red Blood Count 3.59 M/uL Hemoglobin 10.2 g/dL Hematocrit 31.3 % Mean Corpuscular Volume 87.2 fL Mean Corpuscular Hemoglobin 28.4 pg Mean Corpuscular Hemoglobin Concent 32.6 g/dl Platelet Count 424 K/uL Mean Platelet Volume 8.3 fL Neutrophils (%) (Auto) 69.8 % Lymphocytes (%) (Auto) 16.5 % Monocytes (%) (Auto) 12.2 % Eosinophils (%) (Auto) 0.9 % Basophils (%) (Auto) 0.3 % Neutrophils # (Auto) 4.79 K/uL Lymphocytes # (Auto) 1.13 K/uL Monocytes # (Auto) 0.84 K/uL Eosinophils # (Auto) 0.06 K/uL Basophils # (Auto) 0.02 K/uL RDW Standard Deviation 45.3 fL RDW Coefficient of Variation 14.2 % Immature Granulocyte % (Auto) 0.3 % Immature Granulocyte # (Auto) 0.02 K/uL Sodium Level 130 mmol/L Potassium Level 4.4 mmol/L Chloride Level 97 mmol/L Carbon Dioxide Level 28 mmol/L Anion Gap 5.0 mmol/L Blood Urea Nitrogen 11 mg/dl Creatinine 0.40 mg/dl Est Creatinine Clear Calc Drug Dose 186.4 ml/min Estimated GFR () 137.8 Estimated GFR (Non- 118.9 BUN/Creatinine Ratio 26.6 Random Glucose 97 mg/dl Osmolality 275 mOsm/kg Calcium Level 8.9 mg/dl Total Bilirubin 0.9 mg/dl Direct Bilirubin 0.2 mg/dl Aspartate Amino Transf (AST/SGOT) 19 U/L Alanine Aminotransferase (ALT/SGPT) 15 U/L Alkaline Phosphatase 101 U/L Total Protein 6.4 gm/dl Albumin 2.6 gm/dl Assessment and Plan 52 y/o F with 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 She underwent paracentesis on 06/28/17 with mild symptomatic relief, however she developed a hematoma shortly after that has added to her pain. She is in considerable pain today requiring HOBBING MACHINE OPERATOR hydromorphone. She follows with Dr. Varner [facility] oncology. Fallopian tube carcinoma s/p total hysterectomy and currently on chemotherapy ( doxorubicin) -CXR shows small bilateral pleural effusions -abdominal US shows RLQ hematoma 7x2x2.5cm and LLQ mild ascites -liver US shows early cirrhotic changes, gallbladder sludge, NL biliary duct caliber -b/l LE US neg for DVT -heme/onc c/s pending -consider consult IR for repeat drainage of ascites for diagnostic value r/o SBP and symptomatic relief -Ceftriaxone for empiric therapy for SBP -hydromorphone HOBBING MACHINE OPERATOR, IVF and PRN antiemetics Hyponatremia, Na 129 on admission, up to 130 on 07/06/17 -IV nss + 20meq KCl @ 75mls/hr Monitor Hypervolemia/edema/pleural effusions lasix 10mg IV x1 as pt is lasix naive Constipation -senna 1 tab PO daily -magnesium hydroxide 17g PO daily -colace 100mg BID # DVT prophylaxis -hold pharmacologic AC due to abdominal hematoma -SCD -ambulate as tolerated Full code Dr. Slater was c/s for [facility] by admitting physician. I did page her around 12:30p as pt is anxious to be seen, however Dr. Slater informed me that she is not rounding at [facility] today. She recommended c/s for Dr. Varner. I did c/s Dr. Varner and attempted to page him directly to inform him of pt's current status, however have been unable to reach him for further direction regarding possible procedures. In light of this, I did advance pt's diet to clears and can ADAT. Continued [facility] stay due to: inadequate oral pain control, voiding difficulties Discharge planning: home
[2017-07-06] MEDS ORDERED: FUROSEMIDE INJ 10 MG in SYRINGE 0 ML IV ONE (16:30)
[2017-07-06] MEDS: SODIUM CHLORIDE 0.9% 1000ML 1,000 ML IV SCH (17:27)
[2017-07-06] MEDS: CEFTRIAXONE SOD INJ 1 GM in DEXTROSE 5% ADD-VANTAGE 50ML 50 ML IV SCH (18:32)
[2017-07-06] MEDS ORDERED: NURSING DECISION MEDICATION ORDER SCH (18:45)
[2017-07-06 19:27] VITALS: BP 142/89; PULSE 127; TEMP 37; O2SAT 94
[2017-07-07 00:38] VITALS: BP 124/83; PULSE 110; TEMP 36.6; O2SAT 91
[2017-07-07 04:03] VITALS: BP 143/92; PULSE 110; TEMP 36.7; O2SAT 91
[2017-07-07] MEDS: HYDROmorphone HCL 0.5MG/ML 50 ML CASSETTE IV PRN ×2 (06:12→17:09)
[2017-07-07] MEDS: ONDANSETRON INJ 2 MG/ML 2 ML VIAL IV PRN (06:44)
[2017-07-07 06:59] LABS: ALT/SGPT 15 U/L (12-78); AST/SGOT 22 U/L (15-37); BLOOD UREA NITROGEN 12 mg/dl (7-18); CALCIUM 8.8 mg/dl (8.5-10.1); CARBON DIOXIDE 24 mmol/L (21-32); CHLORIDE 97 mmol/L (98-107); GLUCOSE 96 mg/dl (70-99); POTASSIUM 4.5 mmol/L (3.5-5.1); SODIUM 129 mmol/L (136-145)
[2017-07-07 07:01] LABS: ALKALINE PHOSPHATASE 93 U/L (45-117)
--- NOTE | 2017-07-07 07:34 | Medical Student: [facility] ---
Med Student Progress Note Date of Service Jul 07, 2017. Subjective Pt evaluation today including: conversation w/ patient, conversation w/ family , physical exam, lab review Voiding: jurado catheter in place (100ml dark yellow urine) Patient examined sitting up in bed this morning. She is feeling better this morning and was able to sleep last night. Her abdominal pain is tolerable on hydromorphone MEDICAL IMAGING TECHNOLOGIST. She feels that the lasix helped as her belly fullness has improved and she is feeling less bloated. Her breathing is also easier today. Her legs remain swollen and this is uncomfortable to her. She is more comfortable with the Jurado catheter though it limits her movement around the room. Denies fever, chills, headache, dizziness, cp, palpitations, sob, n/v/d, numbness/tingling, calf pain. She is most concerned with the increased leg swelling. She also has some bilateral rib pain that developed overnight. Encouraged her to ambulate as much as possible and to change positions frequently to avoid soreness. She had questions about potential diagnostic and therapeutic procedures available to her. Discussed the options and r/b/a of each at length. All questions answered to her satisfaction. No other complaints at this time. Has not yet been seen by [facility] oncologist. Review of Systems Constitutional: No fever, No chills Eyes: No worsening of vision, No diplopia ENT: No sore throat, No trouble swallowing Respiratory: No cough, No shortness of breath Cardiac: No chest pain, No palpitations Abdomen: + pain, + constipation, No nausea, No vomiting, No diarrhea Musculoskeletal: No muscle pain, No calf pain Female : No dysuria, No hematuria Neurologic: No paralysis, No numbness/tingling Psychiatric: No depression symptoms, No anxiety Heme: No abnormal bleeding/bruising, No clotting problems Skin: No rash, No itch Objective Vital Signs Date Time Temp Pulse Resp B/P (MAP) Pulse Ox O2 Delivery O2 Flow Rate FiO2 07/07/17 04:03 36.7 110 16 143/92 (109) 91 Room Air 07/07/17 00:38 36.6 110 16 124/83 (97) 91 Room Air 07/07/17 00:00 Room Air 07/06/17 20:00 Room Air 07/06/17 19:27 37.0 127 20 142/89 (106) 94 Room Air 07/06/17 16:10 Room Air 07/06/17 16:07 36.7 118 20 131/86 (101) 95 Room Air 07/06/17 12:00 36.7 107 16 140/86 (104) 96 Room Air 07/06/17 08:58 Room Air Physical Exam General Appearance: + mild distress, + pertinent finding (pale-appearing, jurado catheter in place) Eyes: bilateral eyes normal inspection, bilateral eyes PERRL, bilateral eyes EOMI ENT: normal ENT inspection, hearing grossly normal, pharynx normal Neck: supple, no adenopathy, no carotid bruits Respiratory/Chest: lungs clear, normal breath sounds, no respiratory distress, no accessory muscle use Cardiovascular: regular rate, rhythm, no gallop, no murmur Abdomen: normal bowel sounds, soft, + tenderness (diffusely tender to palpation with focal RLQ tenderness), + hernia (umbilical hernia) Extremities: normal range of motion, non-tender, no calf tenderness Neurologic/Psychiatric: no motor/sensory deficits, alert, normal mood/affect, oriented x 3 Skin: + pertinent finding (ecchymotic area RLQ of abdomen consistent with underlying hematoma) Laboratory Results Last 24 Hours Test 07/06/17 20:45 07/07/17 04:44 07/07/17 05:33 Urine Osmolality 696 mOms/kg Urine Random Sodium < 5 mEq/L Sodium Level 129 mmol/L Potassium Level 4.5 mmol/L Chloride Level 97 mmol/L Carbon Dioxide Level 24 mmol/L Anion Gap 8.0 mmol/L Blood Urea Nitrogen 12 mg/dl Creatinine 0.30 mg/dl Est Creatinine Clear Calc Drug Dose 250.8 ml/min Estimated GFR () > 150.0 Estimated GFR (Non- 130.7 BUN/Creatinine Ratio 40.0 Random Glucose 96 mg/dl Calcium Level 8.8 mg/dl Total Bilirubin 0.7 mg/dl Direct Bilirubin 0.2 mg/dl Aspartate Amino Transf (AST/SGOT) 22 U/L Alanine Aminotransferase (ALT/SGPT) 15 U/L Alkaline Phosphatase 93 U/L Total Protein 6.3 gm/dl Albumin 2.5 gm/dl Assessment and Plan Assessment and Plan: This is a 52yo female with 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 She underwent paracentesis on 06/28/17 with symptomatic relief. On MEDICAL IMAGING TECHNOLOGIST hydromorphone for abdominal pain. She follows with Dr. Varner [facility] oncology. Plan 1. Fallopian tube carcinoma s/p total hysterectomy and currently on chemotherapy (doxorubicin) -CXR shows small bilateral pleural effusions -serum osmolarity 275 -abdominal US shows RLQ hematoma 7x2x2.5cm and LLQ mild ascites -liver US shows early cirrhotic changes, gallbladder sludge, NL biliary duct caliber -BLE Dopplers negative for DVT -consult with [facility] heme/onc requested -consider consult IR for repeat drainage of ascites for diagnostic value r/o SBP and symptomatic relief -continue ceftriaxone 1g IV empiric therapy for SBP -hydromorphone 0.5mg MEDICAL IMAGING TECHNOLOGIST, 20min lockout, no continuous infusion -consider increasing MEDICAL IMAGING TECHNOLOGIST pain medication to include continuous infusion for better pain control -k-pad prn for bilateral rib pain -zofran 4mg IV q6h prn nausea -promethazine 12.5mg IV q6h prn nausea -IV nss + 20meq KCl @ 75mls/hr -PT/OT eval 2. Hyponatremia, Na 129 on admission, still 129 on 07/07 -IV nss + 20meq KCl @ 75mls/hr -repeat BMP in AM -repeat CBC in AM 3. Hypervolemia/edema -increased leg edema in the past week -consider additional lasix 20mg IV (lasix-naive, first 10mg dose given 07/06) 4. Bilateral pleural effusions -somewhat resolved after lasix 10mg IV -monitor 5. Constipation -senna 1 tab PO daily -magnesium hydroxide 17g PO daily -colace 100mg BID #Diet -regular diet # DVT prophylaxis -hold pharmacologic AC due to abdominal hematoma -SCD -ambulate as tolerated Discharge planning -Location: home -Date: TBD Continued [facility] stay due to: inadequate oral pain control, voiding difficulties Discharge planning: home Reviewed: Pt Seen/Exam by Me History See my note for details. Assessment/Plan 52 y/o F with 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 She underwent paracentesis on 06/28/17 with mild symptomatic relief, however she developed a hematoma shortly after that has added to her pain. She is in considerable pain today requiring MEDICAL IMAGING TECHNOLOGIST hydromorphone. She follows with Dr. Varner [facility] oncology. Fallopian tube carcinoma s/p total hysterectomy and currently on chemotherapy ( doxorubicin) -CXR shows small bilateral pleural effusions -abdominal US shows RLQ hematoma 7x2x2.5cm and LLQ mild ascites -liver US shows early cirrhotic changes, gallbladder sludge, NL biliary duct caliber -b/l LE US neg for DVT -heme/onc c/s pending, pt requesting to see Dr. Grijalva. I did discuss this with him and he will see pt in AM -consider consult IR for repeat drainage of ascites for diagnostic value r/o SBP and symptomatic relief -Ceftriaxone for empiric therapy for SBP started on admission. Does not seem to be a factor given US and will d/c -hydromorphone MEDICAL IMAGING TECHNOLOGIST, IVF and PRN antiemetics Palliative care c/s Hyponatremia, Na 129 on admission, up to 130 on 07/06/17 -IV nss + 20meq KCl @ 75mls/hr Monitor Hypervolemia/edema/pleural effusions lasix 20mg IV daily Pt aware that this will likely help her pleural effusions and LE edema, but may not help with ascites Constipation: possibly related to ascites, no s/sx c/w SBO -senna 1 tab PO daily -magnesium hydroxide 17g PO daily -colace 100mg BID # DVT prophylaxis -hold pharmacologic AC due to abdominal hematoma -SCD -ambulate as tolerated Full code
[2017-07-07] MEDS: RANITIDINE HCL 150 MG TAB PO SCH ×2 (07:51→21:02)
[2017-07-07] MEDS: CEROVITE ADV FORMULA TAB PO SCH (07:51)
[2017-07-07] MEDS: CAPTOPRIL 25 MG TAB PO SCH ×2 (07:51→21:02)
[2017-07-07] MEDS: BISACODYL 5 MG TABEC PO PRN ×2 (07:55→21:07)
[2017-07-07 07:56] VITALS: BP 142/98; PULSE 109; TEMP 37.1; O2SAT 93
[2017-07-07 08:15] LABS: BASO % 0.3 %; BASO ABS # 0.02 K/uL (0-0.2); COMPLETE YES; HEMATOCRIT 29.2 % (37-47); IG% 0.3 %; LYMPH % 14.1 %; LYMPH ABS # 0.86 K/uL (1.2-3.4); MEAN CELL VOLUME 87.2 fL (80-100); MEAN CORPUSCULAR HEMOGLOBIN 28.7 pg (25-34); MEAN CORPUSCULAR HGB CONC 32.9 g/dl (32-36); MEAN PLATELET VOLUME 8.3 fL (7.4-10.4); MONO % 12.4 %; NEUT % 71.9 %; PLATELET COUNT 364 K/uL (130-400); RED BLOOD COUNT 3.35 M/uL (4.2-5.4); WHITE BLOOD COUNT 6.12 K/uL (4.8-10.8)
[2017-07-07] MEDS ORDERED: NURSING VERBAL MED ORDER ONE (10:00)
[2017-07-07] MEDS ORDERED: LIDODERM (LIDOCAINE) PATCH 5% TD STA (10:12)
[2017-07-07 11:22] VITALS: BP 141/88; PULSE 115; TEMP 36.7; O2SAT 96
[2017-07-07] MEDS: NSS + 20MEQ KCL 1000ML 1,000 ML IV SCH (12:51)
[2017-07-07] MEDS: FENTANYL 25 MCG/HR TDSY TD SCH (13:56)
[2017-07-07] MEDS: CHECK FENTANYL PATCH PLACEMENT SCH ×2 (16:00→23:53)
--- NOTE | 2017-07-07 16:08 | DIAGNOSTIC IMAGING REPORT ---
ABDOMEN 2 VIEWS CLINICAL HISTORY: 52 years-old Female presenting with rule out bowel obstruction, history of metastatic fallopian tube cancer with marked abdominal distention. TECHNIQUE: Upright and supine views of the abdomen were obtained. COMPARISON: 07/05/2017. FINDINGS: Redemonstration of bilateral pleural effusions and basilar atelectasis. Nonobstructive bowel gas pattern. No evidence of free intraperitoneal gas, pneumatosis, or portal venous gas. Ascites noted. Degenerative changes of the spine. Surgical clips noted in the pelvis and in the left paravertebral region at T12. IMPRESSION: 1. Persistent bilateral effusions and ascites. 2. No evidence of bowel obstruction. Electronically signed by: Enrique Donnelly M.D. 07/07/2017 4:07 PM Dictated Date/Time: 07/07/2017 4:05 PM
[2017-07-07] MEDS: SODIUM CHLORIDE 0.9% 1000ML 1,000 ML IV SCH (16:26)
--- NOTE | 2017-07-07 16:36 | Palliative Care Consultation ---
Consultation Date of Consultation: Jul 07, 2017. Requesting Physician: Dr. Whitfield Attending Physician: Dr. 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 She was scheduled to see Dr. Varner yesterday at 3:15pm , but could not want until then to be seen due to the severe pain. History obtained from patient, family, and record. Patient was diagnosed March 2016 with fallopian tube cancer with omental involvement. Underwent OLIMPIA/BSO with staging lymph node dissection, omentectomy, and peritoneal washings. She was given chemotherapy (Carboplatin and Paclitaxel) beginning April 2016 in [place], [place], and they "thought they got it." Patient then had PET/CT scan on 10/18/16 which showed peritoneal nodularity. Her CA 125 began to rise again. She was subsequently started on Cisplatin/Gemcitabine/Avastin starting November 2016, receiving 4 cycles through February 2017, without significant response from CA 125. There was a CT scan (which I have not seen the report) done at that time which showed multiple mesenteric implants. Apparently it was for this reason that her oncologist at a different facility at that time referred her to the [facility]. She was started on a clinical trial, but patient states she was dropped due to her WBC count. She was referred to another clinical trial, but after a few weeks of waiting, she was deemed ineligible. She was told to find a local oncologist close to her home and her family. She started with Dr. Grijalva, then went to Dr. Varner with [facility]. She was started on doxorubicin, had the first dose last week. Had therapeutic paracentesis last week as well. Family present in room with patient: , daughter, mother, sister. Per the patient, she is now presenting with abdominal pain that started and has worsened in the last couple weeks. Also experiencing bloating, burping, and increased lower extremity edema. She does feel that she tolerated the Doxil well , however, and doesn't feel the pain was related to the treatment. She last moved her bowels on Tuesday, now feels more bloated, worse burping, not passing gas, and had a couple episodes of vomiting. X-ray shows no obstruction. Abdominal US shows small amount of ascites. Patient admitted with Dilaudid CHIE[employer] LEARNING OFFICER pump without a basal rate. Her pain is "a roller coaster," at this time. She has good relief after the administration of her CHIE[employer] LEARNING OFFICER dose, then suddenly the pain will come back at a 7-8/10. Not using the CHIEF LEARNING OFFICER as often as she is able. Patient's goal at this time is to prolong her life with the best quality of life possible. She states that recently she was given a life expectancy of 3-4 months. She understands this, as well as her family, but wants to do everything possible in the meantime as long as she is able to tolerate treatment. Past Medical/Surgical History Medical History: Fallopian tube cancer refractory to therapy Hypertension Tubal ligation Social History Smoking Status: Never Smoker History of Alcohol Use: No Drug Use: none Marital Status: Housing Status: lives with family Occupation Status: employed Review of Systems Constitutional: + weakness, + problem reported (weight gain with fluid increase ) ENT: No trouble swallowing Respiratory: + shortness of breath (from distended abdomen), No cough, No sputum, No wheezing Cardiac: + edema, No chest pain Abdomen: + pain, + constipation, No nausea, No vomiting Female : No problem reported Psychiatric: + problem reported (feeing overwhelmed), No depression symptoms, No anxiety Allergies Coded Allergies: Fish (Verified Allergy, Severe, Tabatha - swelling of face/throat/tongue and under the arms, 07/06/17) Giltner (Verified Allergy, Severe, Swelling of face,throat,tongue and under the arms., 07/05/17) Reported by PT. Polyethylene Glycol (Verified Allergy, Intermediate, HIVES, 07/06/17) Prochlorperazine (Verified Allergy, Intermediate, HIVES, 07/06/17) Adhesives (Verified Allergy, Unknown, Tape, 07/06/17) Medications Current Inpatient Medications Medications (Trade) Dose Ordered Sig/Luci Route Start Time Stop Time Status Last Admin Dose Admin Enoxaparin Sodium (Lovenox Inj) 40 mg HS SQ 07/05/17 21:00 08/04/17 20:59 Future Hold Acetaminophen (Tylenol Tab) 650 mg Q4H PRN PO 07/05/17 15:45 08/04/17 15:44 Ondansetron HCl (Zofran Inj) 4 mg Q6H PRN IV 8/15/17 15:45 08/04/17 15:44 07/07/17 06:44 4 MG Multivitamins/ Minerals (Multivitamin W/ Minerals Tab) 1 tab DAILY PO 07/06/17 08:00 08/05/17 08:59 07/07/17 07:51 1 TAB Ranitidine HCl (zANTac TAB) 150 mg BID PO 07/05/17 20:00 08/04/17 20:59 07/07/17 07:51 150 MG Captopril (Capoten Tab) 50 mg BID PO 07/05/17 18:30 08/04/17 18:29 07/07/17 07:51 50 MG Promethazine HCl 12.5 mg/Sodium Chloride 50.5 ml @ 204 mls/hr Q6H PRN IV 07/05/17 15:45 08/04/17 15:44 07/05/17 17:01 204 MLS/HR Bisacodyl (Dulcolax Tab) 5 mg BID PRN PO 07/05/17 15:45 08/04/17 15:44 07/07/17 07:55 5 MG Bisacodyl (Dulcolax Supp) 10 mg DAILY PRN [place] 07/05/17 15:45 08/04/17 15:44 Naloxone HCl (Narcan Inj) 0.1 mg Q5M PRN IV 07/05/17 16:30 08/04/17 16:29 Hydromorphone HCl (Dilaudid Chief Electrician) 25 mg PRN PRN IV 07/05/17 16:30 07/19/17 16:29 07/07/17 06:12 25 MG Sodium Chloride 1,000 ml @ 15 mls/hr Q24H IV 07/05/17 16:26 08/04/17 16:25 07/05/17 18:52 15 MLS/HR Ceftriaxone Sodium 1 gm/ Dextrose 50 ml @ 100 mls/hr Q24H IV 07/05/17 19:00 07/15/17 18:59 07/06/17 18:32 100 MLS/HR Potassium Chloride/Sodium Chloride 1,000 ml @ 75 mls/hr [id number] IV 07/05/17 20:45 08/04/17 20:44 07/07/17 12:51 75 MLS/HR Loratadine (Claritin Tab) 10 mg HS PO 07/06/17 21:00 08/05/17 20:59 07/06/17 20:59 10 MG Amlodipine Besylate (Norvasc Tab) 10 mg HS PO 07/06/17 21:00 08/05/17 20:59 07/06/17 21:00 10 MG Heparin Sodium (Porcine) (Heparin 100 Unit/ml 5ml Flush) 5 ml PRN PRN IV 07/07/17 04:00 08/06/17 03:59 Lidocaine (Lidoderm Patch 5%) 2 patch DAILY@09 TD 07/08/17 09:00 08/07/17 08:59 Miscellaneous (Remove Lidoderm Patch) 2 ea DAILY@2100 N/A 07/07/17 21:00 08/06/17 20:59 Fentanyl (Duragesic Patch) 25 mcg Q72H TD 07/07/17 13:15 07/21/17 13:14 07/07/17 13:56 25 MCG Miscellaneous (Fentanyl Patch Remove & Waste) 1 ea Q3D N/A 07/10/17 13:15 08/09/17 13:14 Miscellaneous Information (Check Fentanyl Patch Placement) 1 ea QS N/A 07/07/17 16:00 08/06/17 15:59 Metoclopramide HCl (Reglan Inj) 10 mg Q6H IV 07/07/17 15:30 08/06/17 15:29 UNV Physical Exam Date Time Temp Pulse Resp B/P (MAP) Pulse Ox O2 Delivery O2 Flow Rate FiO2 07/07/17 11:22 36.7 115 16 141/88 (105) 96 Room Air 07/07/17 08:00 Room Air 07/07/17 07:56 37.1 109 14 142/98 (113) 93 Room Air 07/07/17 04:03 36.7 110 16 143/92 (109) 91 Room Air 07/07/17 00:38 36.6 110 16 124/83 (97) 91 Room Air 07/07/17 00:00 Room Air 07/06/17 20:00 Room Air 07/06/17 19:27 37.0 127 20 142/89 (106) 94 Room Air 07/06/17 16:10 Room Air 07/06/17 16:07 36.7 118 20 131/86 (101) 95 Room Air General Appearance: no apparent distress, + pertinent finding (chronically ill appearing) ENT: hearing grossly normal Neck: supple, no JVD Respiratory: lungs clear, no respiratory distress, no accessory muscle use Cardiovascular: regular rate, rhythm, + pertinent finding (+3 pitting edema to BLE) Abdomen: normal bowel sounds, + distended (firm), + tenderness Neurologic/Psychiatric: alert, normal mood/affect, oriented x 3 Skin: + pallor Laboratory Results Last 24 Hours Test 07/06/17 20:45 07/07/17 05:33 Urine Osmolality 696 mOms/kg Urine Random Sodium < 5 mEq/L White Blood Count 6.12 K/uL Red Blood Count 3.35 M/uL Hemoglobin 9.6 g/dL Hematocrit 29.2 % Mean Corpuscular Volume 87.2 fL Mean Corpuscular Hemoglobin 28.7 pg Mean Corpuscular Hemoglobin Concent 32.9 g/dl Platelet Count 364 K/uL Mean Platelet Volume 8.3 fL Neutrophils (%) (Auto) 71.9 % Lymphocytes (%) (Auto) 14.1 % Monocytes (%) (Auto) 12.4 % Eosinophils (%) (Auto) 1.0 % Basophils (%) (Auto) 0.3 % Neutrophils # (Auto) 4.40 K/uL Lymphocytes # (Auto) 0.86 K/uL Monocytes # (Auto) 0.76 K/uL Eosinophils # (Auto) 0.06 K/uL Basophils # (Auto) 0.02 K/uL RDW Standard Deviation 45.3 fL RDW Coefficient of Variation 14.4 % Immature Granulocyte % (Auto) 0.3 % Immature Granulocyte # (Auto) 0.02 K/uL Sodium Level 129 mmol/L Potassium Level 4.5 mmol/L Chloride Level 97 mmol/L Carbon Dioxide Level 24 mmol/L Anion Gap 8.0 mmol/L Blood Urea Nitrogen 12 mg/dl Creatinine 0.30 mg/dl Est Creatinine Clear Calc Drug Dose 250.8 ml/min Estimated GFR () > 150.0 Estimated GFR (Non- 130.7 BUN/Creatinine Ratio 40.0 Random Glucose 96 mg/dl Calcium Level 8.8 mg/dl Total Bilirubin 0.7 mg/dl Direct Bilirubin 0.2 mg/dl Aspartate Amino Transf (AST/SGOT) 22 U/L Alanine Aminotransferase (ALT/SGPT) 15 U/L Alkaline Phosphatase 93 U/L Total Protein 6.3 gm/dl Albumin 2.5 gm/dl Assessment & Plan Problem list: Abdominal pain Metastatic fallopian tube cancer- has been through several rounds of chemotherapy in [place] and was also in a short clinical trial [facility]. She now follows with Dr. Varner, possibly transitioning to Dr. Grijalva. She had her first dose of doxorubicin last week. S/p paracentesis 06/28/17- 2.5L off, then developed rectus sheath hematoma BL lower extremity edema Hyponatremia Hypovolemia Hypoalbuminemia Goals of care (Z51.5) Palliative care recs: -Patient and family requesting to see Dr. Grijalva. -Reglan is ordered for bowels and for patient's bloating. -Add 0.25mg/hr hydromorphone basal rate to CHIE[employer] LEARNING OFFICER pump for next 12-24 hours until fentanyl patch (25mcg/hr) takes effect. -Patient and family were wondering if they should still go to [facility] for second opinion. Also had many questions about the specific chemo/dosing patient is currently on. -Patient's goal is to prolong life but she is tired of "all the suffering." I had a very candid discussion with her and her family about their goals/patient' s wishes/her will to fight/etc. They are hoping for honest conversations and opinions from the health care team. -It is important to patient to not waste any more time as she wants to spend as much quality time with her family as possible. However, she was not saying that she didn't want to continue with her chemo as she did tolerate it well. -For now, plan is to return home with /family. -Further goals of care to come as discussions continue. Thank you kindly for this consult. I will follow.
--- NOTE | 2017-07-07 17:03 | Progress Note ---
Subjective Date of Service: Jul 07, 2017. Subjective Pt evaluation today including: conversation w/ patient, conversation w/ family , conversation w/ clinical sales consultant Pt feels her SOB is improving. Still with LE swelling that was a bit better last night, but now back to prior. Increased abd ascites. Has jurado in place now for ongoing urinary pressure but not much urine production. This is helping , but per nursing her UOP is still low. She feels that the lasix helped her feel more comfortable. She has not had a bowel movement, but does not feel constipated. She is having pain to her ribs and back. Biofreeze helps this. Tolerating PO without issue, although not much of an appetite. Pt had a difficult time sleeping due to needing to use the BASKET TURNER frequently. Pt is requesting to meet with palliative care. Per palliative care, pt and family are requesting a second opinion from Dr. Lacy Daigle, who pt saw once prior to attempts at establishing at clinical trials earlier in her dx. Problem List Medical Problems: (1) Abdominal hemorrhage Status: Acute (2) Abdominal pain Status: Acute (3) Allergic reaction Status: Acute (4) Ascites Status: Acute (5) Hypokalemia Status: Acute (6) Hyponatremia Status: Acute (7) Hyponatremia Status: Acute (8) Intractable abdominal pain Status: Acute (9) Ovarian cancer Status: Acute (10) Rectus sheath hematoma Status: Acute Review of Systems All Other Systems: Reviewed and Negative Objective Vital Signs Date Time Temp Pulse Resp B/P (MAP) Pulse Ox O2 Delivery O2 Flow Rate FiO2 07/07/17 11:22 36.7 115 16 141/88 (105) 96 Room Air 07/07/17 08:00 Room Air 07/07/17 07:56 37.1 109 14 142/98 (113) 93 Room Air 07/07/17 04:03 36.7 110 16 143/92 (109) 91 Room Air 07/07/17 00:38 36.6 110 16 124/83 (97) 91 Room Air 07/07/17 00:00 Room Air 07/06/17 20:00 Room Air 07/06/17 19:27 37.0 127 20 142/89 (106) 94 Room Air Physical Exam Comments: General Appearance: no apparent distress, + mild distress (anxious and tearful at times) Eyes: normal inspection, EOMI Respiratory/Chest: no respiratory distress, + crackles (minimal) Cardiovascular: regular rate, rhythm, + normal peripheral pulses Abdomen: soft (area of hardness medially c/w hernia), + distended, + tenderness (diffuse and increased from yesterday, hematoma is TTP) Extremities: non-tender, + pedal edema (pitting, stable from prior) Neurologic/Psychiatric: alert, normal mood/affect, oriented x 3 Skin: warm/dry, + pertinent finding (there is discoloration c/w bruising along R sided lateral to medial pelvis) Laboratory Results Last 24 Hours Test 07/06/17 20:45 07/07/17 05:33 Urine Osmolality 696 mOms/kg Urine Random Sodium < 5 mEq/L White Blood Count 6.12 K/uL Red Blood Count 3.35 M/uL Hemoglobin 9.6 g/dL Hematocrit 29.2 % Mean Corpuscular Volume 87.2 fL Mean Corpuscular Hemoglobin 28.7 pg Mean Corpuscular Hemoglobin Concent 32.9 g/dl Platelet Count 364 K/uL Mean Platelet Volume 8.3 fL Neutrophils (%) (Auto) 71.9 % Lymphocytes (%) (Auto) 14.1 % Monocytes (%) (Auto) 12.4 % Eosinophils (%) (Auto) 1.0 % Basophils (%) (Auto) 0.3 % Neutrophils # (Auto) 4.40 K/uL Lymphocytes # (Auto) 0.86 K/uL Monocytes # (Auto) 0.76 K/uL Eosinophils # (Auto) 0.06 K/uL Basophils # (Auto) 0.02 K/uL RDW Standard Deviation 45.3 fL RDW Coefficient of Variation 14.4 % Immature Granulocyte % (Auto) 0.3 % Immature Granulocyte # (Auto) 0.02 K/uL Sodium Level 129 mmol/L Potassium Level 4.5 mmol/L Chloride Level 97 mmol/L Carbon Dioxide Level 24 mmol/L Anion Gap 8.0 mmol/L Blood Urea Nitrogen 12 mg/dl Creatinine 0.30 mg/dl Est Creatinine Clear Calc Drug Dose 250.8 ml/min Estimated GFR () > 150.0 Estimated GFR (Non- 130.7 BUN/Creatinine Ratio 40.0 Random Glucose 96 mg/dl Calcium Level 8.8 mg/dl Total Bilirubin 0.7 mg/dl Direct Bilirubin 0.2 mg/dl Aspartate Amino Transf (AST/SGOT) 22 U/L Alanine Aminotransferase (ALT/SGPT) 15 U/L Alkaline Phosphatase 93 U/L Total Protein 6.3 gm/dl Albumin 2.5 gm/dl Assessment and Plan 52 y/o F with 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 She underwent paracentesis on 06/28/17 with mild symptomatic relief, however she developed a hematoma shortly after that has added to her pain. She is in considerable pain today requiring BASKET TURNER hydromorphone. She follows with Dr. Varner [facility] [place]. Fallopian tube carcinoma s/p total hysterectomy and currently on chemotherapy ( doxorubicin) -CXR shows small bilateral pleural effusions -abdominal US shows RLQ hematoma 7x2x2.5cm and LLQ mild ascites -liver US shows early cirrhotic changes, gallbladder sludge, NL biliary duct caliber -b/l LE US neg for DVT -heme/onc c/s pending, pt requesting to see Dr. Grijalva. I did discuss this with him and he will see pt in AM -consider consult IR for repeat drainage of ascites for diagnostic value r/o SBP and symptomatic relief -Ceftriaxone for empiric therapy for SBP started on admission. Does not seem to be a factor given US and will d/c -hydromorphone BASKET TURNER, IVF and PRN antiemetics Palliative care c/s Hyponatremia, Na 129 on admission, up to 130 on 07/06/17 -IV nss + 20meq KCl @ 75mls/hr Monitor Hypervolemia/edema/pleural effusions lasix 20mg IV daily Pt aware that this will likely help her pleural effusions and LE edema, but may not help with ascites Constipation: possibly related to ascites, no s/sx c/w SBO -senna 1 tab PO daily -magnesium hydroxide 17g PO daily -colace 100mg BID # DVT prophylaxis -hold pharmacologic AC due to abdominal hematoma -SCD -ambulate as tolerated Full code Continued [facility] stay due to: inadequate oral pain control, voiding difficulties Discharge planning: home
[2017-07-07] MEDS ORDERED: MAGNESIUM HYDROXIDE SUSP 30 ML UDC PO PRN (17:15)
[2017-07-07] MEDS ORDERED: MAGNESIUM HYDROXIDE SUSP 30 ML UDC PO ONE (17:15)
[2017-07-07] MEDS: METOCLOPRAMIDE HCL INJ 5 MG/ML 2 ML VIAL IV SCH ×2 (17:48→23:52)
[2017-07-07] MEDS ORDERED: FUROSEMIDE INJ 20 MG in SYRINGE 0 ML IV ONE (18:00)
[2017-07-07] MEDS: CEFTRIAXONE SOD INJ 1 GM in DEXTROSE 5% ADD-VANTAGE 50ML 50 ML IV SCH (19:54)
[2017-07-07 20:24] VITALS: BP 122/85; PULSE 126; TEMP 37; O2SAT 94
[2017-07-07] MEDS: LORATADINE 10 MG TAB PO SCH (21:03)
[2017-07-07] MEDS: AMLODIPINE BESYLATE 5 MG TAB PO SCH (21:18)
[2017-07-08] VITALS: BP 124/85; PULSE 123; TEMP 36.6; O2SAT 92
[2017-07-08] MEDS: NSS + 20MEQ KCL 1000ML 1,000 ML IV SCH ×2 (02:17→15:32)
[2017-07-08 04:17] VITALS: BP 138/80; PULSE 111; TEMP 36.8; O2SAT 92
[2017-07-08] MEDS: METOCLOPRAMIDE HCL INJ 5 MG/ML 2 ML VIAL IV SCH ×3 (05:57→17:34)
[2017-07-08 05:58] LABS: BASO % 0.5 %; BASO ABS # 0.03 K/uL (0-0.2); COMPLETE YES; EOS % 0.7 %; HEMATOCRIT 27.6 % (37-47); IG% 0.2 %; LYMPH % 13.3 %; LYMPH ABS # 0.79 K/uL (1.2-3.4); MEAN CELL VOLUME 88.5 fL (80-100); MEAN CORPUSCULAR HEMOGLOBIN 29.5 pg (25-34); MEAN CORPUSCULAR HGB CONC 33.3 g/dl (32-36); MEAN PLATELET VOLUME 8.4 fL (7.4-10.4); MONO % 11.7 %; NEUT % 73.6 %; PLATELET COUNT 349 K/uL (130-400); RED BLOOD COUNT 3.12 M/uL (4.2-5.4); WHITE BLOOD COUNT 5.92 K/uL (4.8-10.8)
[2017-07-08 06:22] VITALS: BMI 34.6
[2017-07-08 06:33] LABS: CREATININE 0.33 mg/dl (0.60-1.20)
[2017-07-08 07:14] VITALS: BP 135/87; PULSE 118; TEMP 37; O2SAT 90
[2017-07-08] MEDS: LIDODERM (LIDOCAINE) PATCH 5% TD SCH ×2 (08:48→14:51)
[2017-07-08] MEDS: RANITIDINE HCL 150 MG TAB PO SCH ×2 (08:49→19:42)
[2017-07-08] MEDS: CEROVITE ADV FORMULA TAB PO SCH (08:49)
[2017-07-08] MEDS: FUROSEMIDE INJ 20 MG in SYRINGE 0 ML IV SCH (08:49)
[2017-07-08] MEDS: CAPTOPRIL 25 MG TAB PO SCH ×2 (08:49→19:42)
[2017-07-08] MEDS: CHECK FENTANYL PATCH PLACEMENT SCH ×3 (08:49→23:45)
[2017-07-08] MEDS: BISACODYL 5 MG TABEC PO PRN ×2 (08:53→19:44)
--- NOTE | 2017-07-08 10:04 | Medical Student: [facility] ---
Med Student Progress Note Date of Service Jul 08, 2017. Subjective Pt evaluation today including: conversation w/ patient, physical exam, lab review, review of studies Voiding: jurado catheter in place Patient examined sitting up in bed this morning. She is feeling more bloated and is having increased abdominal pain. No shortness of breath. She has not had a bowel movement since Tuesday. Denies fever, chills, cp, sob, n/v/d, numbness/ tingling, calf pain. Review of Systems Constitutional: No fever, No chills Eyes: No worsening of vision, No diplopia ENT: No sore throat, No trouble swallowing Respiratory: No cough, No shortness of breath Cardiac: No chest pain, No palpitations Abdomen: + pain, No nausea, No vomiting, No diarrhea Musculoskeletal: No muscle pain, No calf pain Neurologic: No paralysis, No numbness/tingling Heme: No abnormal bleeding/bruising, No clotting problems Skin: No rash, No itch Objective Vital Signs Date Time Temp Pulse Resp B/P (MAP) Pulse Ox O2 Delivery O2 Flow Rate FiO2 07/08/17 07:14 37.0 118 18 135/87 (103) 90 Room Air 07/08/17 04:17 36.8 111 20 138/80 (99) 92 Room Air 07/08/17 00:00 92 Room Air 07/08/17 00:00 36.6 123 20 124/85 (98) 92 Room Air 07/07/17 20:24 37.0 126 18 122/85 (97) 94 Room Air 07/07/17 16:00 Room Air 07/07/17 11:22 36.7 115 16 141/88 (105) 96 Room Air Physical Exam General Appearance: WD/WN, + moderate distress Eyes: bilateral eyes normal inspection, bilateral eyes PERRL, bilateral eyes EOMI ENT: normal ENT inspection, hearing grossly normal, pharynx normal Neck: supple, no adenopathy Respiratory/Chest: lungs clear, normal breath sounds, no respiratory distress, no accessory muscle use Cardiovascular: no gallop, no murmur, + tachycardia Abdomen: + abnormal bowel sounds (hypoactive), + tenderness (diffusely tender) , + hernia (umbilical hernia) Extremities: no calf tenderness, normal capillary refill, + pedal edema ( bilateral lower extremities) Neurologic/Psychiatric: no motor/sensory deficits, alert, oriented x 3 Skin: normal color, warm/dry, no rash Laboratory Results Last 24 Hours Test 07/08/17 05:16 White Blood Count 5.92 K/uL Red Blood Count 3.12 M/uL Hemoglobin 9.2 g/dL Hematocrit 27.6 % Mean Corpuscular Volume 88.5 fL Mean Corpuscular Hemoglobin 29.5 pg Mean Corpuscular Hemoglobin Concent 33.3 g/dl Platelet Count 349 K/uL Mean Platelet Volume 8.4 fL Neutrophils (%) (Auto) 73.6 % Lymphocytes (%) (Auto) 13.3 % Monocytes (%) (Auto) 11.7 % Eosinophils (%) (Auto) 0.7 % Basophils (%) (Auto) 0.5 % Neutrophils # (Auto) 4.36 K/uL Lymphocytes # (Auto) 0.79 K/uL Monocytes # (Auto) 0.69 K/uL Eosinophils # (Auto) 0.04 K/uL Basophils # (Auto) 0.03 K/uL RDW Standard Deviation 46.6 fL RDW Coefficient of Variation 14.5 % Immature Granulocyte % (Auto) 0.2 % Immature Granulocyte # (Auto) 0.01 K/uL Creatinine 0.33 mg/dl Est Creatinine Clear Calc Drug Dose 231.6 ml/min Estimated GFR () 146.8 Estimated GFR (Non- 126.7 Assessment and Plan Assessment and Plan: This is a 52yo female with 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 She underwent paracentesis on 06/28/17 with symptomatic relief. On PARQUET FLOOR LAYER'S HELPER hydromorphone for abdominal pain. Plan 1. Fallopian tube carcinoma s/p total hysterectomy and currently on chemotherapy (doxorubicin) -CXR shows small bilateral pleural effusions -serum osmolarity 275 -abdominal US shows RLQ hematoma 7x2x2.5cm and LLQ mild ascites -liver US shows early cirrhotic changes, gallbladder sludge, NL biliary duct caliber -BLE Dopplers negative for DVT -consult with Rick Almanzar heme/onc completed with the following recommendations: peritoneal drain for symptomatic relief, increase bowel meds with possible enema if no BM today -d/c IV ceftriaxone -hydromorphone 0.5mg [employer]OR [employer]AY[employer]'S HELPER, 20min lockout, 0.25 continuous infusion -k-pad prn for bilateral rib pain -zofran 4mg IV q6h prn nausea -promethazine 12.5mg IV q6h prn nausea -IV nss + 20meq KCl @ 75mls/hr -PT/OT eval 2. Hyponatremia, Na 129 on admission, still 129 on 07/07 -IV nss + 20meq KCl @ 75mls/hr -repeat BMP in AM -repeat CBC in AM 3. Hypervolemia/edema -increased leg edema in the past week -lasix 20mg IV (lasix-naive, first dose given 07/06) 4. Bilateral pleural effusions -somewhat resolved after lasix 20mg IV -monitor 5. Constipation, functional bowel obstruction -senna 1 tab PO daily -miralax 17g PO daily -colace 100mg BID -consider enema if no BM with above therapy #Diet -regular diet # DVT prophylaxis -hold pharmacologic AC due to abdominal hematoma -SCD -ambulate as tolerated Discharge planning -Location: home -Date: TBD Continued [facility] stay due to: inadequate oral pain control, voiding difficulties Discharge planning: home
[2017-07-08] MEDS ORDERED: NURSING VERBAL MED ORDER ONE ×2 (13:15→17:45)
[2017-07-08] MEDS ORDERED: POLYETHYLENE (MIRALAX) 17 GM PACK ONE (13:16)
--- NOTE | 2017-07-08 14:20 | Oncology Consultation ---
Oncology/Heme Consultation Date of Consultation: Jul 08, 2017. Attending Physician: Tapan Hargrove D.O. Reason for Consultation: Metastatic ovarian cancer Constipation Abdominal pain Ascites History of Present Illness Ms. Ferro is a 52 year old woman with widely metastatic, [place]-resistant ovarian cancer. She is currently being treated with single-agent Doxil by Dr. Varner. She was admitted with worsening abdominal discomfort and swelling and was found to have increased ascites. She underwent a therapeutic paracentesis and felt better initially. However, she continues to have bloating and discomfort. She is also very constipated. She is having irregular bowel movements and has not had a normal bowel movement in 6 days. She was nauseated, belching, and not passing stool or flatus when she was first admitted. Imaging did not reveal an obvious bowel obstruction and so she was managed conservatively. She is now intermittently moving flatus with occasional, tiny amounts of stool. 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 Past Medical/Surgical History Medical Problems: (1) Abdominal hemorrhage Status: Acute (2) Abdominal pain Status: Acute (3) Allergic reaction Status: Acute (4) Ascites Status: Acute (5) Hypokalemia Status: Acute (6) Hyponatremia Status: Acute (7) Hyponatremia Status: Acute (8) Intractable abdominal pain Status: Acute (9) Ovarian cancer Status: Acute (10) Rectus sheath hematoma Status: Acute Family History FH: HTN (hypertension) FH: cancer Social History Smoking Status: Never Smoker Smokeless Tobacco Use: No Alcohol Use: none Drug Use: none Marital Status: Housing Status: lives with family Occupation Status: employed Allergies Coded Allergies: Fish (Verified Allergy, Severe, [place] - swelling of face/throat/tongue and under the arms, 07/06/17) [place] (Verified Allergy, Severe, Swelling of face,throat,tongue and under the arms., 07/05/17) Reported by PT. Polyethylene Glycol (Verified Allergy, Intermediate, HIVES, 07/06/17) Prochlorperazine (Verified Allergy, Intermediate, HIVES, 07/06/17) Adhesives (Verified Allergy, Unknown, Tape, 07/06/17) Home Medications Scheduled Amlodipine Besylate (Amlodipine Besylate), 10 MG PO HS Calcium W/ Magnesium (Calcium & Magnesium), 1 TAB PO DAILY Captopril/Hctz (Capozide), 1 TAB PO BID Loratadine (Claritin), 10 MG PO HS Multiple Vitamins W/ Minerals (One Daily For Women), 1 TAB PO DAILY Ranitidine (Zantac), 150 MG PO BID Scheduled PRN Hydrocodone/Acetaminophen 5MG/325MG ([place] 5MG/325MG), 1 TABLET PO DAILY PRN for Pain Current Inpatient Medications Current Inpatient Medications Medications (Trade) Dose Ordered Sig/Luci Route Start Time Stop Time Status Last Admin Dose Admin Enoxaparin Sodium (Lovenox Inj) 40 mg HS SQ 07/05/17 21:00 08/04/17 20:59 Future Hold Acetaminophen (Tylenol Tab) 650 mg Q4H PRN PO 07/05/17 15:45 08/04/17 15:44 Ondansetron HCl (Zofran Inj) 4 mg Q6H PRN IV 07/05/17 15:45 08/04/17 15:44 07/07/17 06:44 4 MG Multivitamins/ Minerals (Multivitamin W/ Minerals Tab) 1 tab DAILY PO 07/06/17 08:00 08/05/17 08:59 07/08/17 08:49 1 TAB Ranitidine HCl (zANTac TAB) 150 mg BID PO 07/05/17 20:00 08/04/17 20:59 07/08/17 08:49 150 MG Captopril (Capoten Tab) 50 mg BID PO 07/05/17 18:30 08/04/17 18:29 07/08/17 08:49 50 MG Promethazine HCl 12.5 mg/Sodium Chloride 50.5 ml @ 204 mls/hr Q6H PRN IV 07/05/17 15:45 08/04/17 15:44 07/05/17 17:01 204 MLS/HR Bisacodyl (Dulcolax Tab) 5 mg BID PRN PO 07/05/17 15:45 08/04/17 15:44 07/08/17 08:53 5 MG Bisacodyl (Dulcolax Supp) 10 mg DAILY PRN MN 07/05/17 15:45 08/04/17 15:44 Naloxone HCl (Narcan Inj) 0.1 mg Q5M PRN IV 07/05/17 16:30 08/04/17 16:29 Hydromorphone HCl (Dilaudid Electric Range Servicer) 25 mg PRN PRN IV 07/05/17 16:30 07/19/17 16:29 07/07/17 17:09 25 MG Sodium Chloride 1,000 ml @ 15 mls/hr Q24H IV 07/05/17 16:26 08/04/17 16:25 07/07/17 16:26 15 MLS/HR Ceftriaxone Sodium 1 gm/ Dextrose 50 ml @ 100 mls/hr Q24H IV 07/05/17 19:00 07/15/17 18:59 07/07/17 19:54 100 MLS/HR Potassium Chloride/Sodium Chloride 1,000 ml @ 75 mls/hr [id number] IV 07/05/17 20:45 08/04/17 20:44 07/08/17 02:17 75 MLS/HR Loratadine (Claritin Tab) 10 mg HS PO 07/06/17 21:00 08/05/17 20:59 07/07/17 21:03 10 MG Amlodipine Besylate (Norvasc Tab) 10 mg HS PO 07/06/17 21:00 08/05/17 20:59 07/07/17 21:18 10 MG Heparin Sodium (Porcine) (Heparin 100 Unit/ml 5ml Flush) 5 ml PRN PRN IV 07/07/17 04:00 08/06/17 03:59 Lidocaine (Lidoderm Patch 5%) 2 patch DAILY@09 TD 07/08/17 09:00 08/07/17 08:59 07/08/17 08:48 2 PATCH Miscellaneous (Remove Lidoderm Patch) 2 ea DAILY@2100 N/A 07/07/17 21:00 08/06/17 20:59 07/07/17 21:05 2 EA Fentanyl (Duragesic Patch) 25 mcg Q72H TD 07/07/17 13:15 07/21/17 13:14 07/07/17 13:56 25 MCG Miscellaneous (Fentanyl Patch Remove & Waste) 1 ea Q3D N/A 07/10/17 13:15 08/09/17 13:14 Miscellaneous Information (Check Fentanyl Patch Placement) 1 ea QS N/A 07/07/17 16:00 08/06/17 15:59 07/08/17 08:49 1 EA Metoclopramide HCl (Reglan Inj) 10 mg Q6H IV 07/07/17 18:00 08/06/17 17:59 07/08/17 12:42 10 MG Furosemide 20 mg/ Syringe 2 ml @ 4 mls/min DAILY@0800 IV 07/08/17 08:00 08/07/17 07:59 07/08/17 08:49 4 MLS/MIN Magnesium Hydroxide (Milk Of Magnesia Susp) 30 ml DAILY PRN PO 07/07/17 17:15 08/06/17 17:14 07/08/17 08:55 30 ML Senna (Senokot Tab) 8.6 mg QAM PO 07/09/17 08:00 08/08/17 07:59 Docusate Sodium (coLACE CAP) 100 mg BID PO 07/08/17 20:00 08/07/17 19:59 Polyethylene (Miralax Powder Packet) 17 gm BID PO 07/08/17 20:00 08/07/17 19:59 Review of Systems Constitutional: + fatigue, No fever, No chills Respiratory: No cough, No shortness of breath Cardiovascular: No chest pain Abdomen: + pain, + constipation, No nausea, No vomiting Genitourinary - Female: No dysuria Neurologic: No weakness, No numbness/tingling Hematologic / Lymphatic: No abnormal bleeding/bruising Integumentary: No rash Physical Exam Date Time Temp Pulse Resp B/P (MAP) Pulse Ox O2 Delivery O2 Flow Rate FiO2 07/08/17 12:49 Room Air 07/08/17 07:14 37.0 118 18 135/87 (103) 90 Room Air 07/08/17 04:17 36.8 111 20 138/80 (99) 92 Room Air 07/08/17 00:00 92 Room Air 07/08/17 00:00 36.6 123 20 124/85 (98) 92 Room Air 07/07/17 20:24 37.0 126 18 122/85 (97) 94 Room Air 07/07/17 16:00 Room Air General Appearance: no apparent distress, + pertinent finding (chronically ill- appearing) Eyes: EOMI, sclerae normal ENT: pharynx normal (mucous membranes moist) Respiratory/Chest: + decreased breath sounds (at right base) Cardiovascular: regular rate, rhythm, no murmur Abdomen/GI: soft, + abnormal bowel sounds (diminished), + distended Extremities/Musculoskelatal: no calf tenderness Neurologic/Psych: no motor/sensory deficits, alert, oriented x 3 Skin: warm/dry, no rash Lymphatic: no adenopathy Laboratory Results Last 24 Hours Test 07/08/17 05:16 White Blood Count 5.92 K/uL Red Blood Count 3.12 M/uL Hemoglobin 9.2 g/dL Hematocrit 27.6 % Mean Corpuscular Volume 88.5 fL Mean Corpuscular Hemoglobin 29.5 pg Mean Corpuscular Hemoglobin Concent 33.3 g/dl Platelet Count 349 K/uL Mean Platelet Volume 8.4 fL Neutrophils (%) (Auto) 73.6 % Lymphocytes (%) (Auto) 13.3 % Monocytes (%) (Auto) 11.7 % Eosinophils (%) (Auto) 0.7 % Basophils (%) (Auto) 0.5 % Neutrophils # (Auto) 4.36 K/uL Lymphocytes # (Auto) 0.79 K/uL Monocytes # (Auto) 0.69 K/uL Eosinophils # (Auto) 0.04 K/uL Basophils # (Auto) 0.03 K/uL RDW Standard Deviation 46.6 fL RDW Coefficient of Variation 14.5 % Immature Granulocyte % (Auto) 0.2 % Immature Granulocyte # (Auto) 0.01 K/uL Creatinine 0.33 mg/dl Est Creatinine Clear Calc Drug Dose 231.6 ml/min Estimated GFR () 146.8 Estimated GFR (Non- 126.7 Assessment & Plan Ms. Ferro presented with abdominal distention that was secondary to ascites from her metastatic ovarian cancer. She underwent therapeutic paracentesis and her distention improved. However, she continues to have GI discomfort. It appears she had a functional bowel obstruction on admission (nausea, vomiting, belching, and no passing of gas or stool, but without clear anatomic issues on imaging), which is common in patients with peritoneal carcinomatosis. She is also on high doses of narcotics and is receiving a suboptimal bowel regimen. I think her abdominal symptoms are likely related to constipation. We should start with a more aggressive bowel regimen, with a goal of a bowel movement DEV. I would start with MiraLax and, if that is ineffective, magnesium citrate. If neither of these brings about a bowel movement by tomorrow, I would consider an enema as a next step. She is also on reglan, which may to some degree help her dysmotility issue. If she moves her bowels and her abdominal issues do not resolve, the next step would be re-imaging her abdomen to see if her ascites reaccumulated, at which point I would consider a peritoneal drain.
--- NOTE | 2017-07-08 14:21 | Palliative Care Progress Note ---
Palliative Care Progress Note Date of Service Jul 08, 2017. Subjective Pt evaluation today including: conversation w/ patient, conversation w/ family (daughter, Ashley), physical exam, chart review, conversation w/ strategic solutions consultant, review of inpatient medication list Pain: 6/10, better than yesterday PO Intake: small amounts, feels more bloated Voiding: no voiding problems -Patient is in bed, more comfortable than yesterday. Her daughter is at bedside. -Still having pain, about 6/10 at times. Feels the Dilaudid and fentanyl patch are helping. -Is passing gas today, no vomiting. -Patient was able to meet with Dr. Grijalva. He is adding Mirilax. -Abdominal x-ray yesterday showed no mechanical obstruction. Review of Systems Constitutional: + weakness ENT: No trouble swallowing Respiratory: + shortness of breath Cardiac: + edema, No chest pain Abdomen: + pain, + constipation, No nausea, No vomiting Female : No problem reported Psychiatric: No anxiety Objective Vital Signs Date Time Temp Pulse Resp B/P (MAP) Pulse Ox O2 Delivery O2 Flow Rate FiO2 07/08/17 07:14 37.0 118 18 135/87 (103) 90 Room Air 07/08/17 04:17 36.8 111 20 138/80 (99) 92 Room Air 07/08/17 00:00 92 Room Air 07/08/17 00:00 36.6 123 20 124/85 (98) 92 Room Air 07/07/17 20:24 37.0 126 18 122/85 (97) 94 Room Air 07/07/17 16:00 Room Air Physical Exam General Appearance: no apparent distress, + pertinent finding (chronically ill- appearing) ENT: hearing grossly normal Neck: supple, no JVD Respiratory/Chest: lungs clear, no respiratory distress, no accessory muscle use Cardiovascular: regular rate, rhythm, + pertinent finding (+3 pitting edema to BLE) Abdomen: normal bowel sounds, + distended (firm), + tenderness (slightly) Neurologic/Psychiatric: alert (slightly drowsy), normal mood/affect, oriented x 3 Skin: + pallor Laboratory Results Last 24 Hours Test 07/08/17 05:16 White Blood Count 5.92 K/uL Red Blood Count 3.12 M/uL Hemoglobin 9.2 g/dL Hematocrit 27.6 % Mean Corpuscular Volume 88.5 fL Mean Corpuscular Hemoglobin 29.5 pg Mean Corpuscular Hemoglobin Concent 33.3 g/dl Platelet Count 349 K/uL Mean Platelet Volume 8.4 fL Neutrophils (%) (Auto) 73.6 % Lymphocytes (%) (Auto) 13.3 % Monocytes (%) (Auto) 11.7 % Eosinophils (%) (Auto) 0.7 % Basophils (%) (Auto) 0.5 % Neutrophils # (Auto) 4.36 K/uL Lymphocytes # (Auto) 0.79 K/uL Monocytes # (Auto) 0.69 K/uL Eosinophils # (Auto) 0.04 K/uL Basophils # (Auto) 0.03 K/uL RDW Standard Deviation 46.6 fL RDW Coefficient of Variation 14.5 % Immature Granulocyte % (Auto) 0.2 % Immature Granulocyte # (Auto) 0.01 K/uL Creatinine 0.33 mg/dl Est Creatinine Clear Calc Drug Dose 231.6 ml/min Estimated GFR () 146.8 Estimated GFR (Non- 126.7 Assessment and Plan Problem list: Abdominal pain Metastatic fallopian tube cancer- has been through several rounds of chemotherapy in [place] and was also in a short clinical trial at the [facility]. She now follows with Dr. Varner, possibly transitioning to Dr. Grijalva. She had her first dose of doxorubicin last week. S/p paracentesis 06/28/17- 2.5L off, then developed rectus sheath hematoma BL lower extremity edema Hyponatremia Hypovolemia Hypoalbuminemia Goals of care (Z51.5) Palliative care recs: -Leaving pain medication where it is for now. She is still having acute pain which I think will improve greatly once bowels are moving and not so distended. Also once hematoma dissipates. -If pain improves if/when bowels move, discontinue Dilaudid and convert to something PO intermittently for breakthrough pain. -Will need strict bowel regimen. Several meds added to her list today such as Mirilax and Senna. -Recommend follow up with lead worker of housekeeping and laundry as outpatient to see how she can supplement her diet. ?Protein supplement -Patient will follow with Dr. Grijalva once discharged. Continued [facility] stay due to: inadequate oral pain control, multiple IV medications needed Discharge planning: home
[2017-07-08 15:32] VITALS: BP 140/97; PULSE 116; TEMP 36.6; O2SAT 100
[2017-07-08] MEDS: SODIUM CHLORIDE 0.9% 1000ML 1,000 ML IV SCH ×2 (15:32→18:30)
[2017-07-08] MEDS: SENNA 8.6 MG TAB PO SCH (15:51)
--- NOTE | 2017-07-08 16:30 | Progress Note ---
Subjective Date of Service: Jul 08, 2017. Subjective Pt evaluation today including: conversation w/ patient, physical exam, chart review, lab review, review of studies, review of inpatient medication list Problem List Medical Problems: (1) Abdominal hemorrhage Status: Acute (2) Abdominal pain Status: Acute (3) Allergic reaction Status: Acute (4) Ascites Status: Acute (5) Hypokalemia Status: Acute (6) Hyponatremia Status: Acute (7) Hyponatremia Status: Acute (8) Intractable abdominal pain Status: Acute (9) Ovarian cancer Status: Acute (10) Rectus sheath hematoma Status: Acute Review of Systems Constitutional: No fever, No chills, No sweats, No weight loss, No weakness Respiratory: No cough, No sputum, No wheezing, No shortness of breath, No dyspnea on exertion Cardiac: No chest pain, No orthopnea, No PND, No edema Abdomen: + pain, No nausea, No vomiting, No diarrhea, No constipation Musculoskeletal: No joint pain, No muscle pain, No swelling, No calf pain Female : No dysuria, No hematuria, No incontinence Neurologic: No memory loss, No paralysis, No weakness, No numbness/tingling Psychiatric: No depression symptoms, No anhedonism, No anxiety, No insomnia Endo: No fatigue, No excessive thirst Skin: No rash, No itch Objective Vital Signs Date Time Temp Pulse Resp B/P (MAP) Pulse Ox O2 Delivery O2 Flow Rate FiO2 07/08/17 15:32 36.6 116 20 140/97 (111) 100 Nasal Cannula 4.0 07/08/17 12:49 Room Air 07/08/17 07:14 37.0 118 18 135/87 (103) 90 Room Air 07/08/17 04:17 36.8 111 20 138/80 (99) 92 Room Air 07/08/17 00:00 92 Room Air 07/08/17 00:00 36.6 123 20 124/85 (98) 92 Room Air 07/07/17 20:24 37.0 126 18 122/85 (97) 94 Room Air Physical Exam General Appearance: WD/WN, + mild distress Neck: supple, no adenopathy, thyroid normal Respiratory/Chest: chest non-tender, lungs clear, normal breath sounds, no respiratory distress Cardiovascular: regular rate, rhythm, no edema, no gallop, no JVD Abdomen: normal bowel sounds, non tender, soft, no organomegaly Extremities: normal range of motion, non-tender, normal inspection, no pedal edema Neurologic/Psychiatric: no motor/sensory deficits, alert, normal mood/affect, oriented x 3 Laboratory Results Last 24 Hours Test 07/08/17 05:16 White Blood Count 5.92 K/uL Red Blood Count 3.12 M/uL Hemoglobin 9.2 g/dL Hematocrit 27.6 % Mean Corpuscular Volume 88.5 fL Mean Corpuscular Hemoglobin 29.5 pg Mean Corpuscular Hemoglobin Concent 33.3 g/dl Platelet Count 349 K/uL Mean Platelet Volume 8.4 fL Neutrophils (%) (Auto) 73.6 % Lymphocytes (%) (Auto) 13.3 % Monocytes (%) (Auto) 11.7 % Eosinophils (%) (Auto) 0.7 % Basophils (%) (Auto) 0.5 % Neutrophils # (Auto) 4.36 K/uL Lymphocytes # (Auto) 0.79 K/uL Monocytes # (Auto) 0.69 K/uL Eosinophils # (Auto) 0.04 K/uL Basophils # (Auto) 0.03 K/uL RDW Standard Deviation 46.6 fL RDW Coefficient of Variation 14.5 % Immature Granulocyte % (Auto) 0.2 % Immature Granulocyte # (Auto) 0.01 K/uL Creatinine 0.33 mg/dl Est Creatinine Clear Calc Drug Dose 231.6 ml/min Estimated GFR () 146.8 Estimated GFR (Non- 126.7 Assessment and Plan 52 y/o F with 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 She underwent paracentesis on 06/28/17 with mild symptomatic relief, however she developed a hematoma shortly after that has added to her pain. She is in considerable pain today requiring ADMISSIONS EVALUATOR hydromorphone. She follows with Dr. Varner [facility] oncology. Fallopian tube carcinoma s/p total hysterectomy and currently on chemotherapy ( doxorubicin) -CXR shows small bilateral pleural effusions -abdominal US shows RLQ hematoma 7x2x2.5cm and LLQ mild ascites -liver US shows early cirrhotic changes, gallbladder sludge, NL biliary duct caliber -b/l LE US neg for DVT -heme/onc c/s pending, pt requesting to see Dr. Grijalva. -likely functional bowel obstruction worsening pain, adding senna to miralax -consider consult IR for repeat drainage of ascites for diagnostic value r/o SBP and symptomatic relief -hydromorphone ADMISSIONS EVALUATOR, IVF and PRN antiemetics Palliative care c/s, poor prognosis at this time Hyponatremia, Na 129 on admission, up to 130 on 07/06/17 -IV nss + 20meq KCl @ 75mls/hr Monitor Hypervolemia/edema/pleural effusions lasix 20mg IV daily Pt aware that this will likely help her pleural effusions and LE edema, but may not help with ascites Constipation: possibly related to ascites, no s/sx c/w SBO -senna 1 tab PO daily -magnesium hydroxide 17g PO daily -colace 100mg BID # DVT prophylaxis -hold pharmacologic AC due to abdominal hematoma -SCD -ambulate as tolerated Full code Continued [facility] stay due to: inadequate oral pain control, multiple IV medications needed Discharge planning: home
[2017-07-08] MEDS: CEFTRIAXONE SOD INJ 1 GM in DEXTROSE 5% ADD-VANTAGE 50ML 50 ML IV SCH (17:47)
[2017-07-08] MEDS: POLYETHYLENE (MIRALAX) 17 GM PACK PO SCH (19:37)
[2017-07-08] MEDS: BOOST VANILLA PO SCH ×2 (19:37)
[2017-07-08] MEDS: LORATADINE 10 MG TAB PO SCH (19:42)
[2017-07-08] MEDS: AMLODIPINE BESYLATE 5 MG TAB PO SCH (19:42)
[2017-07-08] MEDS: DOCUSATE SODIUM 100 MG CAP PO SCH (19:42)
[2017-07-08 20:50] VITALS: BP 126/86; PULSE 128; TEMP 36.5; O2SAT 100
[2017-07-08] MEDS: HYDROmorphone HCL 0.5MG/ML 50 ML CASSETTE IV PRN (21:16)
[2017-07-08] MEDS ORDERED: FUROSEMIDE 40 MG/4 ML VIAL IV STA (23:07)
[2017-07-08 23:41] VITALS: BP 133/84; PULSE 125; TEMP 36.5; O2SAT 93
[2017-07-08] MEDS ORDERED: FUROSEMIDE INJ 40 MG in SYRINGE 0 ML IV ONE (23:45)
[2017-07-08 23:46] LABS: URINE APPEARANCE TURBID (CLEAR); URINE COLOR DK YELLOW; URINE EPITHELIAL CELL AUTO >30 /lpf (0-5); URINE NITRITE POS (NEG); URINE SPECIFIC GRAVITY 1.031 (1.000-1.030); UROBILINOGEN NEG (NEG)
[2017-07-08 23:49] LABS: MANUAL MICROSCOPIC REQUIRED? NO; REVIEW REQ? YES; URINE BILIRUBIN NEG (NEG)
[2017-07-08 23:59] LABS: URINE MUCUS PRESENT (NONE PRSENT)
[2017-07-09] LABS: ZZURINE CULT IF INDIC CATH NO
[2017-07-09] MEDS: METOCLOPRAMIDE HCL INJ 5 MG/ML 2 ML VIAL IV SCH ×4 (00:17→17:39)
[2017-07-09 04:08] VITALS: BP 136/87; PULSE 126; TEMP 36.8; O2SAT 93
[2017-07-09 07:10] VITALS: Ht 167.6 cm; Wt 101.6 kg
[2017-07-09 07:27] VITALS: BP 139/90; PULSE 124; TEMP 36.5; O2SAT 90
[2017-07-09] MEDS: DOCUSATE SODIUM 100 MG CAP PO SCH ×2 (07:49→21:01)
[2017-07-09] MEDS: FUROSEMIDE INJ 20 MG in SYRINGE 0 ML IV SCH (07:49)
[2017-07-09] MEDS: SENNA 8.6 MG TAB PO SCH (07:50)
[2017-07-09] MEDS: CAPTOPRIL 25 MG TAB PO SCH ×2 (07:50→21:03)
[2017-07-09] MEDS: CEROVITE ADV FORMULA TAB PO SCH (07:50)
[2017-07-09] MEDS: POLYETHYLENE (MIRALAX) 17 GM PACK PO SCH ×2 (07:50→21:02)
[2017-07-09] MEDS: RANITIDINE HCL 150 MG TAB PO SCH ×2 (07:50→21:01)
[2017-07-09] MEDS: BOOST VANILLA PO SCH ×6 (07:51→16:47)
[2017-07-09] MEDS: CHECK FENTANYL PATCH PLACEMENT SCH ×2 (07:51→15:36)
[2017-07-09] MEDS: LIDODERM (LIDOCAINE) PATCH 5% TD SCH (07:56)
[2017-07-09 09:13] LABS: BUN/CREATININE RATIO 26.5 (10-20); CREATININE 0.4 mg/dl (0.60-1.20); POTASSIUM 3.8 mmol/L (3.5-5.1)
[2017-07-09] MEDS ORDERED: NURSING VERBAL MED ORDER ONE ×2 (10:15→16:45)
[2017-07-09] MEDS ORDERED: MICONAZOLE NITRATE POWDER 43 GM EXT PRN (10:30)
--- NOTE | 2017-07-09 11:52 | Hematology/Oncology Prog Note ---
Hematology/Onc Progress Note Date of Service Jul 09, 2017. Diagnoses Metastatic ovarian cancer Constipation Abdominal pain Ascites Intractable pain Medications Medications Administered Medications (Trade) Dose Ordered Sig/Luci Route Start Time Stop Time Status Last Admin Dose Admin Sodium Chloride 1,000 ml @ 999 mls/hr Q1H1M STAT IV 07/05/17 10:55 07/05/17 11:55 DC 07/05/17 11:18 999 MLS/HR Ondansetron HCl (Zofran Inj) 4 mg NOW STAT IV 07/05/17 10:55 07/05/17 10:57 DC 07/05/17 11:15 4 MG Morphine Sulfate (MoRPHine SULFATE INJ) 4 mg Q15M PRN IV 07/05/17 11:00 07/05/17 16:28 DC 07/05/17 13:35 4 MG Hydromorphone HCl (Dilaudid Inj) 1 mg NOW STAT IV 07/05/17 14:38 07/05/17 14:40 DC 07/05/17 14:43 1 MG Al Hydrox/Mg Hydrox/Simethicone (Maalox Max Susp) 30 ml NOW STAT PO 07/05/17 14:38 07/05/17 14:40 DC 07/05/17 14:44 30 ML Pantoprazole Sodium (Protonix Tab) 40 mg NOW STAT PO 07/05/17 14:38 07/05/17 14:40 DC 07/05/17 14:44 40 MG Famotidine (Pepcid Tab) 20 mg NOW ONCE PO 07/05/17 14:45 07/05/17 14:46 DC 07/05/17 14:44 20 MG Ondansetron HCl (Zofran Inj) 4 mg Q6H PRN IV 07/05/17 15:45 08/04/17 15:44 07/07/17 06:44 4 MG Multivitamins/ Minerals (Multivitamin W/ Minerals Tab) 1 tab DAILY PO 07/06/17 08:00 08/05/17 08:59 07/09/17 07:50 1 TAB Ranitidine HCl (zANTac TAB) 150 mg BID PO 07/05/17 20:00 08/04/17 20:59 07/09/17 07:50 150 MG Captopril (Capoten Tab) 50 mg BID PO 07/05/17 18:30 08/04/17 18:29 07/09/17 07:50 50 MG Promethazine HCl 12.5 mg/Sodium Chloride 50.5 ml @ 204 mls/hr Q6H PRN IV 07/05/17 15:45 08/04/17 15:44 07/05/17 17:01 204 MLS/HR Bisacodyl (Dulcolax Tab) 5 mg BID PRN PO 07/05/17 15:45 08/04/17 15:44 07/08/17 19:44 5 MG Hydromorphone HCl (Dilaudid Plant Culture Manager) 25 mg PRN PRN IV 07/05/17 16:30 07/19/17 16:29 07/08/17 21:16 25 MG Sodium Chloride 1,000 ml @ 15 mls/hr Q24H IV 07/05/17 16:26 07/08/17 18:19 DC 07/07/17 16:26 15 MLS/HR Hydromorphone HCl (Dilaudid Inj) 0.5 mg NOW STAT IV 07/05/17 17:06 07/05/17 17:18 DC 07/05/17 17:25 0.5 MG Ceftriaxone Sodium 1 gm/ Dextrose 50 ml @ 100 mls/hr Q24H IV 07/05/17 19:00 07/08/17 18:19 DC 07/07/17 19:54 100 MLS/HR Potassium Chloride (Klor-Con M10) 20 meq NOW STAT PO 07/05/17 20:31 07/05/17 20:34 DC 07/05/17 21:20 20 MEQ Potassium Chloride/Sodium Chloride 1,000 ml @ 75 mls/hr [id number] IV 07/05/17 20:45 07/08/17 18:20 DC 07/08/17 15:32 75 MLS/HR Furosemide 10 mg/ Syringe 1 ml @ 4 mls/min 1630 ONCE IV 07/06/17 16:30 07/06/17 16:31 DC 07/06/17 20:58 4 MLS/MIN Loratadine (Claritin Tab) 10 mg HS PO 07/06/17 21:00 08/05/17 20:59 07/08/17 19:42 10 MG Amlodipine Besylate (Norvasc Tab) 10 mg HS PO 07/06/17 21:00 08/05/17 20:59 07/08/17 19:42 10 MG Lidocaine (Lidoderm Patch 5%) 2 patch NOW STAT TD 07/07/17 10:12 07/07/17 10:13 DC 07/07/17 10:30 2 PATCH Miscellaneous (Remove Lidoderm Patch) 2 ea DAILY@2100 N/A 07/07/17 21:00 08/06/17 20:59 07/07/17 21:05 2 EA Fentanyl (Duragesic Patch) 25 mcg Q72H TD 07/07/17 13:15 07/21/17 13:14 07/07/17 13:56 25 MCG Miscellaneous Information (Check Fentanyl Patch Placement) 1 ea QS N/A 07/07/17 16:00 08/06/17 15:59 07/09/17 07:51 1 EA Metoclopramide HCl (Reglan Inj) 10 mg Q6H IV 07/07/17 18:00 08/06/17 17:59 07/09/17 05:32 10 MG Furosemide 20 mg/ Syringe 2 ml @ 4 mls/min DAILY@0800 IV 07/08/17 08:00 08/07/17 07:59 07/09/17 07:49 4 MLS/MIN Furosemide 20 mg/ Syringe 2 ml @ 4 mls/min 1800 ONCE IV 07/07/17 18:00 07/07/17 18:01 DC 07/07/17 17:51 4 MLS/MIN Magnesium Hydroxide (Milk Of Magnesia Susp) 30 ml NOW ONCE PO 07/07/17 17:15 07/07/17 17:24 DC 07/07/17 17:48 30 ML Magnesium Hydroxide (Milk Of Magnesia Susp) 30 ml DAILY PRN PO 07/07/17 17:15 08/06/17 17:14 07/08/17 08:55 30 ML Senna (Senokot Tab) 8.6 mg QAM PO 07/09/17 08:00 08/08/17 07:59 07/09/17 07:50 8.6 MG Docusate Sodium (coLACE CAP) 100 mg BID PO 07/08/17 20:00 08/07/17 19:59 07/09/17 07:49 100 MG Polyethylene (Miralax Powder Packet) 17 gm BID PO 07/08/17 20:00 08/07/17 19:59 07/09/17 07:50 17 GM Polyethylene (Miralax Powder Packet) 17 gm STK-MED ONCE .ROUTE 07/08/17 13:16 07/08/17 13:17 DC 07/08/17 13:27 17 GM Enteral Nutritional Formula (Boost) 1 can TID PO 07/08/17 20:00 07/09/17 10:20 DC 07/09/17 07:51 1 CAN Furosemide 40 mg/ Syringe 4 ml @ 4 mls/min 2345 ONCE IV 07/08/17 23:45 07/08/17 23:46 DC 07/08/17 23:45 4 MLS/MIN Subjective Ms. Ferro had a bowel movement late yesterday and felt immediately better. She remains distended, however, and is a bit more uncomfortable this morning. 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 Review of Systems: Constitutional: No fever, No chills Respiratory: No cough, No shortness of breath Cardiovascular: + edema, No chest pain Abdomen: + pain, + nausea Musculoskeletal: No joint pain, No muscle pain Female : No dysuria Heme: No abnormal bleeding/bruising Vital Signs Vital Signs Past 12 Hours Date Time Temp Pulse Resp B/P (MAP) Pulse Ox O2 Delivery O2 Flow Rate FiO2 07/09/17 08:00 Nasal Cannula 2.0 07/09/17 07:27 36.5 124 20 139/90 (106) 90 Room Air 07/09/17 04:08 36.8 126 20 136/87 (103) 93 Room Air 07/09/17 00:00 Nasal Cannula 2.0 Physical Exam Constitutional: Level of Distress: NAD, chronically ill Psychiatric: Mental Status: active & alert Orientation: oriented except where noted Lungs: Respiratory Effort: no dyspnea Auscuitation: CTA except as noted Cardiovascular: Heart Auscultation: RRR Abdomen: Inspection & Palpation: soft, no tenderness, guarding & rebound, distended Extremities: edema (1+ pitting edema bilaterally in ankles) Laboratory Last 24 Hours Test 07/08/17 23:15 07/09/17 08:35 Urine Color DK YELLOW Urine Appearance TURBID Urine pH 6.0 Urine Specific [place] 1.031 Urine Protein 2+ Urine Glucose (UA) NEG Urine Ketones TRACE Urine Occult Blood 3+ Urine Nitrite POS Urine Bilirubin NEG Urine Urobilinogen NEG Urine Leukocyte Esterase TRACE Urine WBC (Auto) 5-10 /hpf Urine RBC (Auto) >30 /hpf Urine Hyaline Casts (Auto) 1-5 /lpf Urine Epithelial Cells (Auto) >30 /lpf Urine Bacteria (Auto) NEG Urine Renal Epithelial Cells /lpf Urine Crystals AMORPHOUS SEDIMENT Urine Mucus PRESENT Sodium Level 128 mmol/L Potassium Level 3.8 mmol/L Chloride Level 92 mmol/L Carbon Dioxide Level 27 mmol/L Anion Gap 9.0 mmol/L Blood Urea Nitrogen 11 mg/dl Creatinine 0.40 mg/dl Est Creatinine Clear Calc Drug Dose 192.3 ml/min Estimated GFR () 137.8 Estimated GFR (Non- 118.9 BUN/Creatinine Ratio 26.5 Random Glucose 122 mg/dl Calcium Level 9.0 mg/dl Assessment & Plan Ms. Ferro had a bowel movement yesterday and felt better. However, she remains distended and I suspect her ascites is reaccumulating. We should continue with an aggressive bowel regimen, but if her distention worsens, we may need to reimage her on Tuesday and consider a peritoneal drain. She will continue working with palliative care regarding her narcotics.
--- NOTE | 2017-07-09 12:50 | Progress Note ---
Subjective Date of Service: Jul 09, 2017. Subjective Pt evaluation today including: conversation w/ patient, conversation w/ family , physical exam, chart review, lab review, review of studies, review of inpatient medication list Pt reports BM x 1 last night Improvement in abd pain/discomfort Slept better last night No worsening shortness of breath or chest pain No acute events overnight Problem List Medical Problems: (1) Abdominal hemorrhage Status: Acute (2) Abdominal pain Status: Acute (3) Allergic reaction Status: Acute (4) Ascites Status: Acute (5) Hypokalemia Status: Acute (6) Hyponatremia Status: Acute (7) Hyponatremia Status: Acute (8) Intractable abdominal pain Status: Acute (9) Ovarian cancer Status: Acute (10) Rectus sheath hematoma Status: Acute Review of Systems Constitutional: No fever, No chills, No sweats, No weight loss, No weakness Eyes: No worsening of vision, No eye pain, No redness, No discharge Respiratory: No cough, No sputum, No wheezing, No shortness of breath, No dyspnea on exertion Cardiac: No chest pain, No orthopnea, No PND, No edema, No claudication Abdomen: No pain, No nausea, No vomiting, No diarrhea, No constipation Musculoskeletal: No joint pain, No muscle pain, No swelling, No calf pain Female : No dysuria, No urinary frequency, No hematuria, No incontinence, No abnormal vaginal bleeding Neurologic: No memory loss, No paralysis, No weakness, No numbness/tingling Psychiatric: No depression symptoms, No anhedonism, No anxiety, No insomnia Endo: No fatigue, No excessive thirst, No excessive urination Skin: No rash, No itch Objective Vital Signs Date Time Temp Pulse Resp B/P (MAP) Pulse Ox O2 Delivery O2 Flow Rate FiO2 07/09/17 08:00 Nasal Cannula 2.0 07/09/17 07:27 36.5 124 20 139/90 (106) 90 Room Air 07/09/17 04:08 36.8 126 20 136/87 (103) 93 Room Air 07/09/17 00:00 Nasal Cannula 2.0 07/08/17 23:41 36.5 125 20 133/84 (100) 93 Room Air 07/08/17 20:50 36.5 128 20 126/86 (99) 100 07/08/17 20:00 Nasal Cannula 2.0 07/08/17 16:15 Room Air 07/08/17 15:32 36.6 116 20 140/97 (111) 100 Nasal Cannula 4.0 07/08/17 12:49 Room Air Physical Exam General Appearance: WD/WN, no apparent distress Neck: supple, no adenopathy, thyroid normal Respiratory/Chest: chest non-tender, lungs clear, normal breath sounds Cardiovascular: regular rate, rhythm, no edema, no gallop, no JVD Abdomen: non tender, no organomegaly, no pulsatile mass, + distended Extremities: normal range of motion, non-tender, normal inspection, + pedal edema Neurologic/Psychiatric: no motor/sensory deficits, alert, normal mood/affect, oriented x 3 Laboratory Results Last 24 Hours Test 07/08/17 23:15 07/09/17 08:35 Urine Color DK YELLOW Urine Appearance TURBID Urine pH 6.0 Urine Specific [place] 1.031 Urine Protein 2+ Urine Glucose (UA) NEG Urine Ketones TRACE Urine Occult Blood 3+ Urine Nitrite POS Urine Bilirubin NEG Urine Urobilinogen NEG Urine Leukocyte Esterase TRACE Urine WBC (Auto) 5-10 /hpf Urine RBC (Auto) >30 /hpf Urine Hyaline Casts (Auto) 1-5 /lpf Urine Epithelial Cells (Auto) >30 /lpf Urine Bacteria (Auto) NEG Urine Renal Epithelial Cells /lpf Urine Crystals AMORPHOUS SEDIMENT Urine Mucus PRESENT Sodium Level 128 mmol/L Potassium Level 3.8 mmol/L Chloride Level 92 mmol/L Carbon Dioxide Level 27 mmol/L Anion Gap 9.0 mmol/L Blood Urea Nitrogen 11 mg/dl Creatinine 0.40 mg/dl Est Creatinine Clear Calc Drug Dose 192.3 ml/min Estimated GFR () 137.8 Estimated GFR (Non- 118.9 BUN/Creatinine Ratio 26.5 Random Glucose 122 mg/dl Calcium Level 9.0 mg/dl Assessment and Plan 52 y/o F with 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 She underwent paracentesis on 06/28/17 with mild symptomatic relief, however she developed a hematoma shortly after that has added to her pain. 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 She follows with Dr. Varner [facility] oncology. Fallopian tube carcinoma s/p total hysterectomy and currently on chemotherapy ( doxorubicin) -CXR shows small bilateral pleural effusions -abdominal US shows RLQ hematoma 7x2x2.5cm and LLQ mild ascites -liver US shows early cirrhotic changes, gallbladder sludge, NL biliary duct caliber -b/l LE US neg for DVT -heme/onc c/s pending, pt requesting to see Dr. Grijalva. -likely functional bowel obstruction worsening pain, cont senna and miralax -hydromorphone SHIRT FOLDING MACHINE OPERATOR, -repeat abd US on 07/09, if worsening ascites, may require peritoneal drain , improvement in abd discomfort, likely from functional bowel obstruction, reports BM on 07/08 Palliative care c/s, poor prognosis at this time Hyponatremia, Na 129 on admission, not worsening -IVF discontinued Monitor Hypervolemia/edema/pleural effusions lasix 20mg IV daily Pt aware that this will likely help her pleural effusions and LE edema, but may not help with ascites Constipation: possibly related to ascites, no s/sx c/w SBO -senna 1 tab PO daily -magnesium hydroxide 17g PO daily -colace 100mg BID DVT prophylaxis -hold pharmacologic AC due to abdominal hematoma -SCD -ambulate as tolerated Full code Continued [facility] stay due to: inadequate oral pain control, multiple IV medications needed Discharge planning: home
[2017-07-09] MEDS ORDERED: BOOST VANILLA PO SCH ×2 (14:00)
[2017-07-09 15:19] VITALS: BP 127/85; PULSE 117; TEMP 36.9; O2SAT 91
[2017-07-09] MEDS ORDERED: ALUMINUM/MAGNESIUM SUSP 30 ML UDC ONE (16:42)
[2017-07-09] MEDS ORDERED: ALUMINUM/MAGNESIUM SUSP 30 ML UDC PO ONE (17:00)
[2017-07-09] MEDS: SODIUM CHLORIDE 0.9% 1000ML 1,000 ML IV SCH (17:39)
--- NOTE | 2017-07-09 18:39 | DIAGNOSTIC IMAGING REPORT ---
ASCITES-ABDOMEN LIMITED CLINICAL HISTORY: Ascites. COMPARISON STUDY: Abdominal ultrasound July 05, 2017. FINDINGS: Moderate abdominal and pelvic ascites is noted. IMPRESSION: Moderate ascites. Electronically signed by: Dominic Carias M.D. 07/09/2017 6:37 PM Dictated Date/Time: 07/09/2017 6:35 PM
[2017-07-09 19:30] VITALS: BP 128/84; PULSE 114; TEMP 36.6; O2SAT 100
[2017-07-09 21:00] VITALS: BP 136/87; PULSE 118; O2SAT 92
[2017-07-09] MEDS: LORATADINE 10 MG TAB PO SCH (21:03)
[2017-07-09] MEDS: AMLODIPINE BESYLATE 5 MG TAB PO SCH (21:03)
[2017-07-09] MEDS ORDERED: FUROSEMIDE 40 MG/4 ML VIAL IV STA (21:17)
[2017-07-09] MEDS ORDERED: FUROSEMIDE INJ 40 MG in SYRINGE 0 ML IV SCH (21:30)
[2017-07-09] MEDS: HYDROmorphone HCL 0.5MG/ML 50 ML CASSETTE IV PRN (23:23)
[2017-07-09 23:24] VITALS: BP 137/83; PULSE 104; TEMP 36.8; O2SAT 96
[2017-07-10] MEDS: CHECK FENTANYL PATCH PLACEMENT SCH ×4 (00:13→23:34)
[2017-07-10] MEDS: METOCLOPRAMIDE HCL INJ 5 MG/ML 2 ML VIAL IV SCH ×5 (00:13→23:42)
[2017-07-10 03:55] VITALS: BP 138/90; PULSE 107; TEMP 36.9; O2SAT 93
[2017-07-10 06:29] LABS: BUN/CREATININE RATIO 33.5 (10-20); CALCIUM 8.8 mg/dl (8.5-10.1); CREATININE 0.37 mg/dl (0.60-1.20); POTASSIUM 4.3 mmol/L (3.5-5.1)
[2017-07-10 07:15] VITALS: BP 139/91; PULSE 114; TEMP 36.9; O2SAT 98
[2017-07-10] MEDS: BOOST VANILLA PO SCH ×6 (07:36→16:56)
[2017-07-10] MEDS: FUROSEMIDE INJ 20 MG in SYRINGE 0 ML IV SCH ×4 (07:36→16:56)
[2017-07-10] MEDS: SENNA 8.6 MG TAB PO SCH ×2 (07:37→20:31)
[2017-07-10] MEDS: DOCUSATE SODIUM 100 MG CAP PO SCH ×2 (07:37→20:29)
[2017-07-10] MEDS: LIDODERM (LIDOCAINE) PATCH 5% TD SCH (07:37)
[2017-07-10] MEDS: CEROVITE ADV FORMULA TAB PO SCH (07:37)
[2017-07-10] MEDS: RANITIDINE HCL 150 MG TAB PO SCH ×2 (07:37→20:32)
[2017-07-10] MEDS: POLYETHYLENE (MIRALAX) 17 GM PACK PO SCH ×2 (07:37→20:31)
[2017-07-10] MEDS: CAPTOPRIL 25 MG TAB PO SCH ×2 (07:37→20:32)
[2017-07-10] MEDS ORDERED: FUROSEMIDE INJ 20 MG in SYRINGE 0 ML IV ONE (07:45)
[2017-07-10] MEDS: HYDROmorphone HCL 0.5MG/ML 50 ML CASSETTE IV PRN ×2 (10:35→23:20)
[2017-07-10] MEDS: FENTANYL PATCH REMOVE & WASTE SCH (13:15)
--- NOTE | 2017-07-10 13:37 | Progress Note ---
Subjective Date of Service: Jul 10, 2017. Subjective Pt evaluation today including: conversation w/ patient, conversation w/ family , physical exam, chart review, lab review, review of studies, conversation w/ technical consultant, review of inpatient medication list Resting comfortably in bed States having BM yesterday No worsening abd/pain or discomfort Problem List Medical Problems: (1) Abdominal hemorrhage Status: Acute (2) Abdominal pain Status: Acute (3) Allergic reaction Status: Acute (4) Ascites Status: Acute (5) Hypokalemia Status: Acute (6) Hyponatremia Status: Acute (7) Hyponatremia Status: Acute (8) Intractable abdominal pain Status: Acute (9) Ovarian cancer Status: Acute (10) Rectus sheath hematoma Status: Acute Review of Systems Constitutional: No fever, No chills, No sweats, No weakness ENT: No hearing loss, No unusual epistaxis, No nasal symptoms, No sore throat Respiratory: + cough, + sputum, No wheezing, No shortness of breath, No dyspnea on exertion Cardiac: + edema, No chest pain, No orthopnea, No PND, No claudication Abdomen: No pain, No nausea, No vomiting, No diarrhea, No constipation Musculoskeletal: + joint pain, No muscle pain, No swelling, No calf pain Female : No dysuria, No urinary frequency, No hematuria, No incontinence Neurologic: No memory loss, No paralysis, No weakness, No numbness/tingling Psychiatric: No depression symptoms, No anhedonism, No anxiety, No insomnia Endo: No fatigue, No excessive thirst Skin: No rash, No itch Objective Vital Signs Date Time Temp Pulse Resp B/P (MAP) Pulse Ox O2 Delivery O2 Flow Rate FiO2 07/10/17 08:00 Nasal Cannula 2.0 07/10/17 07:15 36.9 114 18 139/91 (107) 98 Nasal Cannula 3.0 07/10/17 03:55 36.9 107 20 138/90 (106) 93 Room Air 07/10/17 00:15 Nasal Cannula 2.0 07/09/17 23:24 36.8 104 20 137/83 (101) 96 Nasal Cannula 2.0 07/09/17 21:00 118 136/87 (103) 92 Room Air 07/09/17 20:00 Room Air 07/09/17 19:30 36.6 114 20 128/84 (99) 100 Room Air 07/09/17 15:45 Nasal Cannula 2.0 07/09/17 15:19 36.9 117 18 127/85 (99) 91 Room Air Physical Exam General Appearance: WD/WN, no apparent distress Neck: supple, no adenopathy, thyroid normal, no JVD Respiratory/Chest: chest non-tender, lungs clear, normal breath sounds, no respiratory distress, no accessory muscle use Cardiovascular: no edema, no gallop, no JVD, no murmur Abdomen: normal bowel sounds, non tender, no organomegaly, + distended Extremities: normal range of motion, non-tender, normal inspection, + pedal edema Neurologic/Psychiatric: no motor/sensory deficits, alert, normal mood/affect, oriented x 3 Laboratory Results Last 24 Hours Test 07/10/17 05:42 Sodium Level 128 mmol/L Potassium Level 4.3 mmol/L Chloride Level 92 mmol/L Carbon Dioxide Level 30 mmol/L Anion Gap 6.0 mmol/L Blood Urea Nitrogen 12 mg/dl Creatinine 0.37 mg/dl Est Creatinine Clear Calc Drug Dose 209.5 ml/min Estimated GFR () 141.4 Estimated GFR (Non- 122.0 BUN/Creatinine Ratio 33.5 Random Glucose 120 mg/dl Calcium Level 8.8 mg/dl Assessment and Plan 52 y/o F with 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 She underwent paracentesis on 06/28/17 with mild symptomatic relief, however she developed a hematoma shortly after that has added to her pain. 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 She follows with Dr. Varner [facility] oncology. Fallopian tube carcinoma s/p total hysterectomy and currently on chemotherapy ( doxorubicin) -CXR shows small bilateral pleural effusions -abdominal US shows RLQ hematoma 7x2x2.5cm and LLQ mild ascites -liver US shows early cirrhotic changes, gallbladder sludge, NL biliary duct caliber -b/l LE US neg for DVT -heme/onc c/s pending, pt requesting to see Dr. Grijalva. 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, -repeat abd US on 07/09, worsening moderate ascites, may require peritoneal drain , improvement in abd discomfort, likely from functional bowel obstruction , reports BM on 07/08 -Consult GI for peritoneal drain placement -Palliative care c/s, poor prognosis at this time Hyponatremia, Na 129 on admission -IVF discontinued Monitor Hypervolemia/edema/pleural effusions lasix 20mg IV daily Pt aware that this will likely help her pleural effusions and LE edema, but may not help with ascites Constipation: possibly related to ascites, no s/sx c/w SBO -senna 1 tab PO daily -magnesium hydroxide 17g PO daily -colace 100mg BID DVT prophylaxis -hold pharmacologic AC due to abdominal hematoma -SCD -ambulate as tolerated Full code Continued [facility] stay due to: inadequate oral pain control, multiple IV medications needed Discharge planning: home
[2017-07-10] MEDS: FENTANYL 25 MCG/HR TDSY TD SCH (13:45)
--- NOTE | 2017-07-10 14:23 | Gastrointestinal Consultation ---
Gastrointestinal Consultation Date of Consultation: Jul 10, 2017 Attending Physician: Delvin Munoz Consulting Physician: Tapan Hargrove Reason for Consultation: Ascites, abdominal pain History of Present Illness Patient is a 52 year old female with abdominal bloating for several days, better after having a bowel movement. some RUQ pain that is intermitted along with back pain. She tells these are not exactly new. No evidence of bleeding. Tachycardia with movements. No chest pain. No history of CHF Past Medical/Surgical History Medical Problems: (1) Abdominal hemorrhage Status: Acute (2) Abdominal pain Status: Acute (3) Allergic reaction Status: Acute (4) Ascites Status: Acute (5) Hypokalemia Status: Acute (6) Hyponatremia Status: Acute (7) Hyponatremia Status: Acute (8) Intractable abdominal pain Status: Acute (9) Ovarian cancer Status: Acute (10) Rectus sheath hematoma Status: Acute Past Medical History: Fallopial tube cancer on round 2 chemo recently as ca 125 was increasing. S/p hysterectomy Family History FH: HTN (hypertension) FH: cancer Social History Smoking Status: Never Smoker Alcohol Use: none Drug Use: none Marital Status: Housing Status: lives with family Occupation Status: employed Allergies Coded Allergies: Fish (Verified Allergy, Severe, [place] - swelling of face/throat/tongue and under the arms, 07/06/17) [place] (Verified Allergy, Severe, Swelling of face,throat,tongue and under the arms., 07/05/17) Reported by PT. Polyethylene Glycol (Verified Allergy, Intermediate, HIVES, 07/06/17) Prochlorperazine (Verified Allergy, Intermediate, HIVES, 07/06/17) Adhesives (Verified Allergy, Unknown, Tape, 07/06/17) Current Medications Home Meds and Scripts Medications Dose Route/Sig Max Daily Dose Days Date Category Dose Instructions [place] 5MG/325MG (Acetaminophen/Hydrocodone Bitart) Tab 1 Tablet PO DAILY PRN 07/03/17 Rx PRN PAIN Claritin (Loratadine) 10 Mg Tab 10 Mg PO HS 06/27/17 Reported Zantac (Ranitidine HCl) 150 Mg Tab 150 Mg PO BID 06/23/17 Reported Calcium & Magnesium (Calcium W/ Magnesium) 1 Tab Tab 1 Tab PO DAILY 05/15/16 Reported One Daily For Women (Multiple Vitamins W/ Minerals) 1 Tab Tab 1 Tab PO DAILY 10/01/14 Reported Capozide (Captopril/HCTZ) 50 Mg/15 Mg Tab 1 Tab PO BID 10/01/14 Reported Amlodipine Besylate 10 Mg Tab 10 Mg PO HS 10/01/14 Reported Review of Systems Cardiac: + palpitations, No chest pain Abdomen: + pain, + constipation, No nausea, No vomiting Female : No dysuria, No hematuria, No incontinence Physical Exam Date Time Temp Pulse Resp B/P (MAP) Pulse Ox O2 Delivery O2 Flow Rate FiO2 07/10/17 08:00 Nasal Cannula 2.0 07/10/17 07:15 36.9 114 18 139/91 (107) 98 Nasal Cannula 3.0 07/10/17 03:55 36.9 107 20 138/90 (106) 93 Room Air 07/10/17 00:15 Nasal Cannula 2.0 07/09/17 23:24 36.8 104 20 137/83 (101) 96 Nasal Cannula 2.0 07/09/17 21:00 118 136/87 (103) 92 Room Air 07/09/17 20:00 Room Air 07/09/17 19:30 36.6 114 20 128/84 (99) 100 Room Air 07/09/17 15:45 Nasal Cannula 2.0 07/09/17 15:19 36.9 117 18 127/85 (99) 91 Room Air General Appearance: + mild distress Eyes: normal inspection Neck: no JVD Respiratory/Chest: chest non-tender, lungs clear, normal breath sounds, no respiratory distress Cardiovascular: no murmur, + tachycardia Abdomen: normal bowel sounds, non tender, + distended, + hernia, + pertinent finding (Ascites, mild tp moderate) Extremities: + pedal edema, + swelling Neurologic/Psych: alert, normal mood/affect Skin: normal color, no jaundice, warm/dry Laboratory Results Last 24 Hours Test 07/10/17 05:42 Sodium Level 128 mmol/L Potassium Level 4.3 mmol/L Chloride Level 92 mmol/L Carbon Dioxide Level 30 mmol/L Anion Gap 6.0 mmol/L Blood Urea Nitrogen 12 mg/dl Creatinine 0.37 mg/dl Est Creatinine Clear Calc Drug Dose 209.5 ml/min Estimated GFR () 141.4 Estimated GFR (Non- 122.0 BUN/Creatinine Ratio 33.5 Random Glucose 120 mg/dl Calcium Level 8.8 mg/dl Impression Patient is a 52 year old female with relatively new ascites, pedal edema and tachy cardia in mild discomfort. She had mostly abdominal bloating and distention that actual pain. Back pain is present with some RUQ pain, mostly more chronic. Recommend: 1. R/o out IVC obstruction, thrombosis. PE can explain tachycardia though she has no other symptoms. 2. If no DVT get OOB with a good bowel regimen aimed at daily bowel movement. Agree with current miralax regimen. Minimize pain meds. continue to correct sodium. Discontinue Evans catheter if not needed. 3. consider paracentesis, do not feel that it is urgently needed. Sent fluid for cytology if not already done and check for serum-fluid albumin gradient. No reason to believe she has liver disease at this time. 4. Sludge in the GB is unlikely the case of symptoms, watch lfts if she has recurrent RUQ pain Plan as above. Will follow with you. (plan discussed with Dr. Hargrove)
[2017-07-10 20:00] VITALS: O2SAT 98
[2017-07-10] MEDS: BISACODYL 5 MG TABEC PO PRN (20:30)
[2017-07-10] MEDS: AMLODIPINE BESYLATE 5 MG TAB PO SCH (20:33)
[2017-07-10] MEDS: LORATADINE 10 MG TAB PO SCH (20:33)
[2017-07-10 20:34] VITALS: BP 124/87; PULSE 121; TEMP 36.9; O2SAT 90
[2017-07-10] MEDS: SODIUM CHLORIDE 0.9% 1000ML 1,000 ML IV SCH (20:35)
[2017-07-10] MEDS ORDERED: LORAZEPAM 2 MG/ML 1 ML VIAL IV STA (23:07)
[2017-07-10] MEDS ORDERED: LORAZEPAM INJ 1 MG in SYRINGE 0.5 ML IV STA (23:12)
[2017-07-10 23:49] VITALS: BP 139/82; PULSE 122; TEMP 36.7; O2SAT 91
[2017-07-11] VITALS (8 sets, daily range): BP systolic 114–138; BP diastolic 73–84; PULSE 111–126; TEMP 36–36.9; O2SAT 89–100
[2017-07-11 06:09] LABS: HEMATOCRIT 27.2 % (37-47); MEAN CELL VOLUME 85.5 fL (80-100); MEAN CORPUSCULAR HEMOGLOBIN 28.3 pg (25-34); MEAN CORPUSCULAR HGB CONC 33.1 g/dl (32-36); MEAN PLATELET VOLUME 8.3 fL (7.4-10.4); PLATELET COUNT 253 K/uL (130-400); RED BLOOD COUNT 3.18 M/uL (4.2-5.4); WHITE BLOOD COUNT 4.91 K/uL (4.8-10.8)
[2017-07-11] MEDS: METOCLOPRAMIDE HCL INJ 5 MG/ML 2 ML VIAL IV SCH ×3 (06:12→18:07)
[2017-07-11 06:43] LABS: BUN/CREATININE RATIO 35.2 (10-20); CALCIUM 8.9 mg/dl (8.5-10.1); CREATININE 0.32 mg/dl (0.60-1.20); POTASSIUM 3.8 mmol/L (3.5-5.1)
[2017-07-11] MEDS: HYDROmorphone HCL 0.5MG/ML 50 ML CASSETTE IV PRN ×2 (07:10→20:15)
[2017-07-11] MEDS: ONDANSETRON INJ 2 MG/ML 2 ML VIAL IV PRN (08:30)
--- NOTE | 2017-07-11 09:08 | DIAGNOSTIC IMAGING REPORT ---
DUPLEX AORTA/IVC/ILIACS LTD CLINICAL HISTORY: 52 years-old Female presenting with rule out IVC thrombosis, ascites, lower ext edema. TECHNIQUE: Real-time grayscale ultrasound imaging of the inferior vena cava was performed. Color and spectral Doppler were also performed. COMPARISON: CT from 07/02/2017. FINDINGS: Inferior vena cava patent throughout the visualized portion with normal color Doppler flow and spectral Doppler waveforms. Somewhat limited evaluation of the most inferior portion of the inferior vena cava. Visualized portion of the abdominal aorta normal. Moderate volume ascites. Gallbladder sludge. IMPRESSION: 1. Patent inferior vena cava and aorta. 2. Moderate ascites. 3. Gallbladder sludge. Electronically signed by: Enrique Donnelly M.D. 07/11/2017 9:07 AM Dictated Date/Time: 07/11/2017 9:05 AM
[2017-07-11] MEDS: DOCUSATE SODIUM 100 MG CAP PO SCH ×2 (09:32→20:19)
[2017-07-11] MEDS: CEROVITE ADV FORMULA TAB PO SCH (09:32)
[2017-07-11] MEDS: FUROSEMIDE INJ 20 MG in SYRINGE 0 ML IV SCH ×2 (09:32→18:06)
[2017-07-11] MEDS: POLYETHYLENE (MIRALAX) 17 GM PACK PO SCH ×2 (09:33→20:20)
[2017-07-11] MEDS: BOOST VANILLA PO SCH ×6 (09:33→18:07)
[2017-07-11] MEDS: CAPTOPRIL 25 MG TAB PO SCH ×2 (09:33→20:20)
[2017-07-11] MEDS: SENNA 8.6 MG TAB PO SCH (09:34)
[2017-07-11] MEDS: CHECK FENTANYL PATCH PLACEMENT SCH ×2 (09:35→18:07)
[2017-07-11] MEDS: LIDODERM (LIDOCAINE) PATCH 5% TD SCH (09:35)
[2017-07-11] MEDS: ALUMINUM/MAGNESIUM SUSP 30 ML UDC PO PRN ×2 (09:38→22:01)
[2017-07-11] MEDS: RANITIDINE HCL 150 MG TAB PO SCH ×2 (12:14→20:19)
--- NOTE | 2017-07-11 13:56 | Progress Note ---
Subjective Date of Service: Jul 11, 2017. Subjective Pt evaluation today including: conversation w/ patient, physical exam, chart review, lab review, review of studies, review of inpatient medication list Feeling uncomfortably after ultrasound abdomen States "sour feeling in his her throat" No worsening abdominal pain or shortness of breath Problem List Medical Problems: (1) Abdominal hemorrhage Status: Acute (2) Abdominal pain Status: Acute (3) Allergic reaction Status: Acute (4) Ascites Status: Acute (5) Hypokalemia Status: Acute (6) Hyponatremia Status: Acute (7) Hyponatremia Status: Acute (8) Intractable abdominal pain Status: Acute (9) Ovarian cancer Status: Acute (10) Rectus sheath hematoma Status: Acute Review of Systems Constitutional: No fever, No chills, No sweats, No weight loss, No weakness ENT: No hearing loss, No unusual epistaxis, No nasal symptoms, No sore throat Respiratory: No cough, No sputum, No wheezing, No shortness of breath Cardiac: + edema, No chest pain, No orthopnea, No PND Abdomen: No pain, No nausea, No vomiting, No diarrhea, No constipation Musculoskeletal: + swelling, No joint pain, No muscle pain, No calf pain Female : No dysuria, No urinary frequency, No hematuria, No incontinence, No abnormal vaginal bleeding Neurologic: No memory loss, No paralysis, No weakness, No numbness/tingling Psychiatric: No depression symptoms, No anhedonism, No anxiety, No insomnia Endo: No fatigue, No excessive thirst Skin: No rash, No itch Objective Vital Signs Date Time Temp Pulse Resp B/P (MAP) Pulse Ox O2 Delivery O2 Flow Rate FiO2 07/11/17 11:30 36.0 111 20 122/84 (97) 100 Nasal Cannula 4.0 07/11/17 07:17 36.5 112 20 135/82 (99) 100 Nasal Cannula 4.0 07/10/17 23:49 36.7 122 20 139/82 (101) 91 Room Air 07/10/17 20:34 36.9 121 20 124/87 (99) 90 Room Air 07/10/17 20:00 98 Room Air 2.0 Nasal Cannula 07/10/17 16:00 Nasal Cannula 2.0 Physical Exam General Appearance: WD/WN, no apparent distress Eyes: normal inspection, PERRL, EOMI, sclerae normal Neck: supple, no adenopathy, thyroid normal, no JVD Respiratory/Chest: chest non-tender, lungs clear, normal breath sounds, no respiratory distress Cardiovascular: no gallop, no JVD, no murmur, + tachycardia Abdomen: normal bowel sounds, non tender, soft, no organomegaly Neurologic/Psychiatric: no motor/sensory deficits, alert, oriented x 3, + depressed affect Laboratory Results Last 24 Hours Test 07/11/17 05:55 White Blood Count 4.91 K/uL Red Blood Count 3.18 M/uL Hemoglobin 9.0 g/dL Hematocrit 27.2 % Mean Corpuscular Volume 85.5 fL Mean Corpuscular Hemoglobin 28.3 pg Mean Corpuscular Hemoglobin Concent 33.1 g/dl RDW Standard Deviation 44.1 fL RDW Coefficient of Variation 14.1 % Platelet Count 253 K/uL Mean Platelet Volume 8.3 fL Sodium Level 126 mmol/L Potassium Level 3.8 mmol/L Chloride Level 91 mmol/L Carbon Dioxide Level 28 mmol/L Anion Gap 7.0 mmol/L Blood Urea Nitrogen 11 mg/dl Creatinine 0.32 mg/dl Est Creatinine Clear Calc Drug Dose 242.2 ml/min Estimated GFR () 148.3 Estimated GFR (Non- 128.0 BUN/Creatinine Ratio 35.2 Random Glucose 107 mg/dl Calcium Level 8.9 mg/dl Assessment and Plan 52 y/o F with 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 She underwent paracentesis on 06/28/17 with mild symptomatic relief, however she developed a hematoma shortly after that has added to her pain. 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 She follows with Dr. Varner [facility] [place] [place] oncology. Fallopian tube carcinoma s/p total hysterectomy and currently on chemotherapy ( doxorubicin) -CXR shows small bilateral pleural effusions -abdominal US shows RLQ hematoma 7x2x2.5cm and LLQ mild ascites -liver US shows early cirrhotic changes, gallbladder sludge, NL biliary duct caliber -b/l LE US neg for DVT -heme/onc c/s pending, pt requesting to see Dr. Grijalva. -likely functional bowel obstruction worsening pain, cont senna and miralax -hydromorphone OIL PIPE INSPECTOR HELPER will try to minimize as pt having worsening constipation at times -repeat abd US on 07/09, worsening moderate ascites, improvement in abd discomfort, likely from functional bowel obstruction, reports BM on 07/08 -Consult GI for possible drain, states will need ascites fluid w/u and to r/o other causes of ascites first, abd US ordered to r/o IVC obstruction -Palliative care c/s, poor prognosis at this time Hyponatremia, Na 129 on admission, slightly worsening, poor nutrition -IVF discontinued Monitor Hypervolemia/edema/pleural effusions lasix 20mg IV bid, still retaining more fluid Pt aware that this will likely help her pleural effusions and LE edema, but may not help with ascites Constipation: possibly related to ascites, no s/sx c/w SBO -senna 1 tab PO daily -magnesium hydroxide 17g PO daily -colace 100mg BID DVT prophylaxis -hold pharmacologic AC due to abdominal hematoma -SCD -ambulate as tolerated Full code Continued [facility] stay due to: inadequate oral pain control, multiple IV medications needed Discharge planning: home
[2017-07-11] MEDS ORDERED: SODIUM CHLORIDE 0.65% NA SOLN 45 ML (OCEAN) ONE (14:08)
[2017-07-11] MEDS ORDERED: NURSING DECISION MEDICATION ORDER SCH (14:15)
[2017-07-11] MEDS ORDERED: SODIUM CHLORIDE 0.65% NA SOLN 45 ML (OCEAN) PRN (14:45)
--- NOTE | 2017-07-11 14:46 | PROGRESS NOTE ---
DATE: 07/11/2017 SUBJECTIVE: The patient is complaining of mid back pain, probably from her increasing ascites. She is not having any visible shortness of breath. PHYSICAL EXAMINATION: VITAL SIGNS: Blood pressure is 122/84, pulse 111, temperature is 36, O2 saturation 100% on 4 liters. ABDOMEN: Shows a midline incision from xiphoid to pubis. There is an incisional hernia in the middle of the upper part of her incision. Abdomen is distended and dull to percussion, consistent with ascites. Her ultrasound of her legs did not show any evidence of a DVT. I believe her edema may be from compression of her iliac veins from her ascites. She did have a paracentesis 2 weeks ago for comfort and 2-1/2 liters of fluid was withdrawn, but apparently no studies were sent. She did develop a little bit of right lower quadrant hematoma which is evident on physical exam, but it is resolving. Her liver tests are normal, platelet count is normal, I think it is very unlikely that the patient has cirrhosis and much more likely that the patient has malignant ascites. I plan on scheduling her for an ultrasound-guided paracentesis for later today with fluid sent for cytology as well as chemistries and blood counts. We will continue to follow the patient during her stay.
--- NOTE | 2017-07-11 15:18 | Palliative Care Progress Note ---
Palliative Care Progress Note Date of Service Jul 11, 2017. Subjective Pt evaluation today including: conversation w/ patient, conversation w/ family (mother and [id number]), review of inpatient medication list Pain: abdominal pain is better today, but now back is sore PO Intake: decreased intake Voiding: no voiding problems -Patient is awake, alert and oriented. Mother and [id number] at bedside. -Patient's abdominal pain is improved, but still there. Now her back hurts. -States that the weekend was "rough." Was still having burping/belching. Didn't move bowels yesterday which had her concerned, but had BM today which made her feel better. Stool was loose diarrhea so she skipped today's dose of mirilax. -US abdomen with moderate ascites, patent IVC and aorta, and with gall sludge. Patient now will have paracentesis today or tomorrow. Review of Systems Constitutional: + weakness Respiratory: + shortness of breath (from distended abdomen) Abdomen: + pain, + diarrhea (today), + problem reported (belching/burping), No nausea, No vomiting Female : No problem reported Psychiatric: No anxiety Objective Vital Signs Date Time Temp Pulse Resp B/P (MAP) Pulse Ox O2 Delivery O2 Flow Rate FiO2 07/11/17 11:30 36.0 111 20 122/84 (97) 100 Nasal Cannula 4.0 07/11/17 07:17 36.5 112 20 135/82 (99) 100 Nasal Cannula 4.0 07/10/17 23:49 36.7 122 20 139/82 (101) 91 Room Air 07/10/17 20:34 36.9 121 20 124/87 (99) 90 Room Air 07/10/17 20:00 98 Room Air 2.0 Nasal Cannula 07/10/17 16:00 Nasal Cannula 2.0 Physical Exam General Appearance: no apparent distress ENT: hearing grossly normal Neck: supple, no JVD Respiratory/Chest: no respiratory distress, no accessory muscle use Cardiovascular: regular rate, rhythm Abdomen: + distended Neurologic/Psychiatric: alert, normal mood/affect, oriented x 3 Laboratory Results Last 24 Hours Test 07/11/17 05:55 White Blood Count 4.91 K/uL Red Blood Count 3.18 M/uL Hemoglobin 9.0 g/dL Hematocrit 27.2 % Mean Corpuscular Volume 85.5 fL Mean Corpuscular Hemoglobin 28.3 pg Mean Corpuscular Hemoglobin Concent 33.1 g/dl RDW Standard Deviation 44.1 fL RDW Coefficient of Variation 14.1 % Platelet Count 253 K/uL Mean Platelet Volume 8.3 fL Sodium Level 126 mmol/L Potassium Level 3.8 mmol/L Chloride Level 91 mmol/L Carbon Dioxide Level 28 mmol/L Anion Gap 7.0 mmol/L Blood Urea Nitrogen 11 mg/dl Creatinine 0.32 mg/dl Est Creatinine Clear Calc Drug Dose 242.2 ml/min Estimated GFR () 148.3 Estimated GFR (Non- 128.0 BUN/Creatinine Ratio 35.2 Random Glucose 107 mg/dl Calcium Level 8.9 mg/dl Assessment and Plan Problem list: Abdominal pain Metastatic fallopian tube cancer- has been through several rounds of chemotherapy in [place] and was also in a short clinical trial at the [facility]. She now follows with Dr. Grijalva. She had her first dose of doxorubicin two weeks ago. S/p paracentesis 06/28/17- 2.5L off, then developed rectus sheath hematoma BL lower extremity edema Hyponatremia Hypovolemia Hypoalbuminemia Goals of care (Z51.5) Palliative care recs: -Leaving pain medication where it is for now. She is still having acute pain. -Patient really does not want pain medication to be increase at the moment because she already feels "foggy." -Hoping after paracentesis and increased mobility patient might feel better. -If patient stabilizes from GI standpoint, I would increase fentanyl patch to 50mcg/hr and discontinue the continuous hydromorphone dose 12 hours later, just leaving the intermittent DOMESTIC TECHNICIAN dose. Hoping to transition to PO Dilaudid for breakthrough pain. Will try to cut back on dose due to bowel issues. -To undergo paracentesis today or tomorrow. -Plan is still to go home. -Recommend heating pad to back. Palliative Performance Scale: 60 % Continued [facility] stay due to: inadequate oral pain control, multiple IV medications needed Discharge planning: home
--- NOTE | 2017-07-11 17:26 | DIAGNOSTIC IMAGING REPORT ---
PARACENTESIS UNDER ULTRASOUND GUIDANCE CLINICAL HISTORY: Abdominal ascites. PROCEDURE: The risks, benefits, and alternatives to the procedure were discussed with the patient who voiced understanding. Written informed consent was obtained. Following real-time ultrasound localization of a suitable pocket of fluid in the right lower quadrant, the abdomen was prepped and draped in the usual sterile fashion. The skin and soft tissues were anesthetized with 1% lidocaine. The sheathed paracentesis was inserted and approximately 2 liters of dark/blood tinged ascitic fluid was removed by vacuum suction. A volume of 2 liters was specified by the referring clinician. Fluid was sent for laboratory analysis. The procedure was well tolerated and without immediate complication. The patient left the department in satisfactory condition. IMPRESSION: Successful ultrasound-guided paracentesis with removal of approximately 2 liters of ascitic fluid. Electronically signed by: Brennon Kumari M.D. 07/11/2017 5:24 PM Dictated Date/Time: 07/11/2017 5:23 PM
[2017-07-11] MEDS: SODIUM CHLORIDE 0.9% 1000ML 1,000 ML IV SCH (18:08)
[2017-07-11] MEDS: AMLODIPINE BESYLATE 5 MG TAB PO SCH (20:18)
[2017-07-11] MEDS: LORATADINE 10 MG TAB PO SCH (20:21)
[2017-07-11 20:51] LABS: PERIT FL WBC 1138 /uL (0-300); PERITONEAL FLUID RBC 118000 /uL
[2017-07-12] MEDS: METOCLOPRAMIDE HCL INJ 5 MG/ML 2 ML VIAL IV SCH ×2 (00:56→06:08)
[2017-07-12] MEDS: CHECK FENTANYL PATCH PLACEMENT SCH ×4 (00:58→23:12)
[2017-07-12 04:37] VITALS: BP 126/84; PULSE 111; TEMP 36.4; O2SAT 92
[2017-07-12 06:44] LABS: BUN/CREATININE RATIO 22.5 (10-20); CALCIUM 8.2 mg/dl (8.5-10.1); CREATININE 0.34 mg/dl (0.60-1.20); POTASSIUM 3.7 mmol/L (3.5-5.1)
[2017-07-12 07:14] VITALS: BP 119/83; PULSE 99; TEMP 36.9; O2SAT 93
[2017-07-12] MEDS: BOOST VANILLA PO SCH ×6 (08:11→17:26)
[2017-07-12] MEDS: CAPTOPRIL 25 MG TAB PO SCH ×2 (08:11→20:46)
[2017-07-12] MEDS: RANITIDINE HCL 150 MG TAB PO SCH (08:12)
[2017-07-12] MEDS: SENNA 8.6 MG TAB PO SCH (08:12)
[2017-07-12] MEDS: LIDODERM (LIDOCAINE) PATCH 5% TD SCH (08:13)
[2017-07-12] MEDS: DOCUSATE SODIUM 100 MG CAP PO SCH ×2 (08:13→20:47)
[2017-07-12] MEDS: FUROSEMIDE INJ 20 MG in SYRINGE 0 ML IV SCH ×2 (08:13→17:24)
[2017-07-12] MEDS: CEROVITE ADV FORMULA TAB PO SCH (08:14)
[2017-07-12] MEDS: POLYETHYLENE (MIRALAX) 17 GM PACK PO SCH ×2 (08:14→20:45)
[2017-07-12 11:17] VITALS: BP 123/84; PULSE 102; TEMP 36.5; O2SAT 96
--- NOTE | 2017-07-12 12:13 | Hematology/Oncology Prog Note ---
Hematology/Onc Progress Note Date of Service Jul 12, 2017. Diagnoses 1. Metastatic ovarian cancer 2. Ascites 3. Electrolyte dysfunction. 4. Rectus sheath hematoma. 5. Intractable abdominal pain. Subjective Sherry is a pleasant but unfortunate 52-year-old female patient under the care of Dr. Ion Grijalva with metastatic ovarian carcinoma. She is now on hospital day 7. Underwent paracentesis yesterday yielding approximately 2 L. Continues to complain of abdominal fullness and bloating. Primary team incorporated Dilaudid pump which has been helpful. Electrolytes being replaced as appropriate. Vital Signs Vital Signs Past 12 Hours Date Time Temp Pulse Resp B/P (MAP) Pulse Ox O2 Delivery O2 Flow Rate FiO2 07/12/17 11:17 36.5 102 16 123/84 (97) 96 07/12/17 09:23 Nasal Cannula 2.0 07/12/17 07:14 36.9 99 16 119/83 (95) 93 Room Air 07/12/17 04:37 36.4 111 18 126/84 (98) 92 Room Air Physical Exam In general, 52-year-old female patient in no acute distress. Skin. No apparent rashes or lesions. HEENT oral mucosa without erythema or ulceration. Neck. Supple Lungs. Bi- basilar crackles. Heart. Regular rate and rhythm. Abdomen, notably distended with shifting dullness and positive fluid wave. Extremities. 1+ peripheral edema bilaterally. Neuro. Grossly intact. Constitutional: Level of Distress: NAD, chronically ill Psychiatric: Mental Status: active & alert Orientation: oriented except where noted Lungs: Respiratory Effort: no dyspnea Auscuitation: CTA except as noted Cardiovascular: Heart Auscultation: RRR Abdomen: Inspection & Palpation: soft, no tenderness, guarding & rebound, distended Extremities: edema (1+ pitting edema bilaterally in ankles) Assessment & Plan 1. Ascites 2. Intractable abdominal pain 3. Metastatic ovarian cancer 4. Electrolyte abnormalities. 5. Rectus sheath hematoma. Sherry was seen and examined at bedside today. Underwent paracentesis yesterday with some relief however still complains of abdominal fullness and bloating. Perhaps an indwelling pigtail might be helpful as to allow her drainage in the home setting. Spoke to Dr. Grijalva and plans to resume combination Doxil and bevacizumab as outpatient. Pain control remains challenge which is prolonging her hospitalization. Recommend electrolyte replacement as clinically indicated. She suffers from mild anemia and no intervention is required at this time. Will continue to follow her periodically throughout her hospital stay. Upon discharge will make arrangements for expedient follow-up to resume chemotherapy with Dr. Grijalva. Thank you for assisting us in the care of this very pleasant patient.
[2017-07-12] MEDS: METOCLOPRAMIDE HCL INJ 5 MG/ML 2 ML VIAL IV. SCH ×3 (13:08→23:12)
[2017-07-12 15:00] VITALS: BP 123/79; PULSE 109; TEMP 36.9; O2SAT 91
[2017-07-12] MEDS: ALUMINUM/MAGNESIUM SUSP 30 ML UDC PO PRN (16:05)
[2017-07-12] MEDS ORDERED: PANTOprazole SOD 40 MG TAB PO STA (16:37)
--- NOTE | 2017-07-12 16:57 | Gastroenterology Progress Note ---
Progress Note Date of Service: Jul 12, 2017 Subjective Pt evaluation today including: conversation w/ patient, conversation w/ family (daughter), physical exam, chart review, lab review, review of studies, review of inpatient medication list CC sour stomacj HPI pt complains of sour stomach and generlized abd pain. Paraentesis not much difference to her pain level. She is moving her bowels. Early satiety. Medications Current Inpatient Medications Medications (Trade) Dose Ordered Sig/Luci Route Start Time Stop Time Status Last Admin Dose Admin Enoxaparin Sodium (Lovenox Inj) 40 mg HS SQ 07/05/17 21:00 08/04/17 20:59 Future Hold Acetaminophen (Tylenol Tab) 650 mg Q4H PRN PO 07/05/17 15:45 08/04/17 15:44 Ondansetron HCl (Zofran Inj) 4 mg Q6H PRN IV 07/05/17 15:45 08/04/17 15:44 07/11/17 08:30 4 MG Multivitamins/ Minerals (Multivitamin W/ Minerals Tab) 1 tab DAILY PO 07/06/17 08:00 08/05/17 08:59 07/12/17 08:14 1 TAB Ranitidine HCl (zANTac TAB) 150 mg BID PO 07/05/17 20:00 08/04/17 20:59 07/12/17 08:12 150 MG Captopril (Capoten Tab) 50 mg BID PO 07/05/17 18:30 08/04/17 18:29 07/12/17 08:11 50 MG Promethazine HCl 12.5 mg/Sodium Chloride 50.5 ml @ 204 mls/hr Q6H PRN IV 07/05/17 15:45 08/04/17 15:44 07/05/17 17:01 204 MLS/HR Bisacodyl (Dulcolax Tab) 5 mg BID PRN PO 07/05/17 15:45 08/04/17 15:44 07/10/17 20:30 5 MG Bisacodyl (Dulcolax Supp) 10 mg DAILY PRN ME 07/05/17 15:45 08/04/17 15:44 Naloxone HCl (Narcan Inj) 0.1 mg Q5M PRN IV 07/05/17 16:30 9/14/17 16:29 Hydromorphone HCl (Dilaudid Navigating Officer) 25 mg PRN PRN IV 07/05/17 16:30 07/19/17 16:29 07/11/17 20:15 25 MG Loratadine (Claritin Tab) 10 mg HS PO 07/06/17 21:00 08/05/17 20:59 07/11/17 20:21 10 MG Amlodipine Besylate (Norvasc Tab) 10 mg HS PO 07/06/17 21:00 08/05/17 20:59 07/11/17 20:18 10 MG Heparin Sodium (Porcine) (Heparin 100 Unit/ml 5ml Flush) 5 ml PRN PRN IV 07/07/17 04:00 08/06/17 03:59 Lidocaine (Lidoderm Patch 5%) 2 patch DAILY@09 TD 07/08/17 09:00 08/07/17 08:59 Miscellaneous (Remove Lidoderm Patch) 2 ea DAILY@2100 N/A 07/07/17 21:00 08/06/17 20:59 07/07/17 21:05 2 EA Fentanyl (Duragesic Patch) 25 mcg Q72H TD 07/07/17 13:15 07/21/17 13:14 07/10/17 13:45 25 MCG Miscellaneous (Fentanyl Patch Remove & Waste) 1 ea Q3D N/A 07/10/17 13:15 08/09/17 13:14 07/10/17 13:15 1 EA Miscellaneous Information (Check Fentanyl Patch Placement) 1 ea QS N/A 07/07/17 16:00 08/06/17 15:59 07/12/17 16:05 1 EA Magnesium Hydroxide (Milk Of Magnesia Susp) 30 ml DAILY PRN PO 07/07/17 17:15 08/06/17 17:14 07/08/17 08:55 30 ML Senna (Senokot Tab) 8.6 mg QAM PO 07/09/17 08:00 08/08/17 07:59 07/12/17 08:12 8.6 MG Docusate Sodium (coLACE CAP) 100 mg BID PO 07/08/17 20:00 08/07/17 19:59 07/12/17 08:13 100 MG Polyethylene (Miralax Powder Packet) 17 gm BID PO 07/08/17 20:00 08/07/17 19:59 07/12/17 08:14 17 GM Sodium Chloride 1,000 ml @ 30 mls/hr Q24H IV 07/08/17 18:30 08/07/17 18:29 07/11/17 18:08 30 MLS/HR Miconazole Nitrate (Desenex Powder) 1 appln PRN PRN EXT 07/09/17 10:30 08/08/17 10:29 Enteral Nutritional Formula (Boost) 1 can TIDM PO 07/09/17 12:00 08/08/17 11:59 07/12/17 13:09 1 CAN Furosemide 20 mg/ Syringe 2 ml @ 4 mls/min BID17 IV 07/10/17 08:00 08/09/17 07:59 07/12/17 08:13 4 MLS/MIN Al Hydroxide/Mg Hydroxide (Maalox Susp) 30 ml Q6H PRN PO 07/10/17 09:15 08/09/17 09:14 07/12/17 16:05 30 ML Sodium Chloride (Mecca Nasal Liguori) 1 sprays PRN PRN NA 07/11/17 14:45 08/10/17 14:44 Metoclopramide HCl (Reglan Inj) 10 mg Q6H IV. 07/12/17 12:00 08/11/17 11:59 07/12/17 13:08 10 MG Objective Vital Signs Date Time Temp Pulse Resp B/P (MAP) Pulse Ox O2 Delivery O2 Flow Rate FiO2 07/12/17 15:00 36.9 109 18 123/79 (94) 91 07/12/17 11:17 36.5 102 16 123/84 (97) 96 07/12/17 09:23 Nasal Cannula 2.0 07/12/17 07:14 36.9 99 16 119/83 (95) 93 Room Air 07/12/17 04:37 36.4 111 18 126/84 (98) 92 Room Air 07/12/17 00:00 Nasal Cannula 2.0 07/11/17 23:57 36.9 114 16 114/73 (87) 94 Room Air 07/11/17 20:00 Room Air 4.0 Nasal Cannula 07/11/17 19:24 36.8 126 24 117/79 (92) 89 Nasal Cannula 4.0 07/11/17 17:48 36.8 119 18 130/82 (98) 99 Nasal Cannula 4.0 07/11/17 17:42 36.3 121 20 138/82 (100) 93 2.0 Physical Exam General Appearance: WD/WN, no apparent distress Respiratory/Chest: lungs clear, normal breath sounds Cardiovascular: regular rate, rhythm Abdomen: normal bowel sounds, + pertinent finding (protoberant from ascites but not tense, no guarding nor rebound, ) Laboratory Results Last 24 Hours Test 07/12/17 05:37 Sodium Level 125 mmol/L Potassium Level 3.7 mmol/L Chloride Level 89 mmol/L Carbon Dioxide Level 30 mmol/L Anion Gap 6.0 mmol/L Blood Urea Nitrogen 8 mg/dl Creatinine 0.34 mg/dl Est Creatinine Clear Calc Drug Dose 229.2 ml/min Estimated GFR () 145.4 Estimated GFR (Non- 125.4 BUN/Creatinine Ratio 22.5 Random Glucose 100 mg/dl Calcium Level 8.2 mg/dl Assessment and Plan ascites--SAAG 0.2 so doubt cirrhosis. 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
[2017-07-12] MEDS: SODIUM CHLORIDE 0.9% 1000ML 1,000 ML IV SCH (17:32)
--- NOTE | 2017-07-12 18:35 | Progress Note ---
Subjective Date of Service: Jul 12, 2017. Subjective Pt evaluation today including: conversation w/ patient, physical exam, chart review, lab review, review of studies, review of inpatient medication list Resting comfortably in bed States relief with paracentesis No concerns at this time Problem List Medical Problems: (1) Abdominal hemorrhage Status: Acute (2) Abdominal pain Status: Acute (3) Allergic reaction Status: Acute (4) Ascites Status: Acute (5) Hypokalemia Status: Acute (6) Hyponatremia Status: Acute (7) Hyponatremia Status: Acute (8) Intractable abdominal pain Status: Acute (9) Ovarian cancer Status: Acute (10) Rectus sheath hematoma Status: Acute Review of Systems Constitutional: No fever, No chills, No sweats, No weakness Respiratory: No cough, No sputum, No wheezing, No shortness of breath Cardiac: No chest pain, No orthopnea, No PND, No edema Abdomen: No pain, No nausea, No vomiting, No diarrhea Musculoskeletal: No joint pain, No muscle pain, No swelling, No calf pain Female : No dysuria, No urinary frequency, No hematuria, No incontinence Neurologic: No memory loss, No paralysis, No weakness, No numbness/tingling Psychiatric: No depression symptoms, No anhedonism, No anxiety, No insomnia Endo: No fatigue, No excessive thirst Skin: No rash, No itch Objective Vital Signs Date Time Temp Pulse Resp B/P (MAP) Pulse Ox O2 Delivery O2 Flow Rate FiO2 07/12/17 16:00 Nasal Cannula 2.0 07/12/17 15:00 36.9 109 18 123/79 (94) 91 07/12/17 11:17 36.5 102 16 123/84 (97) 96 07/12/17 09:23 Nasal Cannula 2.0 07/12/17 07:14 36.9 99 16 119/83 (95) 93 Room Air 07/12/17 04:37 36.4 111 18 126/84 (98) 92 Room Air 07/12/17 00:00 Nasal Cannula 2.0 07/11/17 23:57 36.9 114 16 114/73 (87) 94 Room Air 07/11/17 20:00 Room Air 4.0 Nasal Cannula 07/11/17 19:24 36.8 126 24 117/79 (92) 89 Nasal Cannula 4.0 Physical Exam General Appearance: WD/WN, no apparent distress Eyes: normal inspection, PERRL, EOMI, sclerae normal Neck: supple, no adenopathy, thyroid normal, no JVD Respiratory/Chest: chest non-tender, lungs clear, normal breath sounds, no respiratory distress Cardiovascular: regular rate, rhythm, no edema, no gallop, no JVD Abdomen: normal bowel sounds, non tender, soft, no organomegaly Neurologic/Psychiatric: no motor/sensory deficits, alert, normal mood/affect, oriented x 3 Skin: normal color, warm/dry, no rash Lymphatic: no adenopathy Laboratory Results Last 24 Hours Test 07/12/17 05:37 Sodium Level 125 mmol/L Potassium Level 3.7 mmol/L Chloride Level 89 mmol/L Carbon Dioxide Level 30 mmol/L Anion Gap 6.0 mmol/L Blood Urea Nitrogen 8 mg/dl Creatinine 0.34 mg/dl Est Creatinine Clear Calc Drug Dose 229.2 ml/min Estimated GFR () 145.4 Estimated GFR (Non- 125.4 BUN/Creatinine Ratio 22.5 Random Glucose 100 mg/dl Calcium Level 8.2 mg/dl Assessment and Plan 52 y/o F with 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 She underwent paracentesis on 06/28/17 with mild symptomatic relief, however she developed a hematoma shortly after that has added to her pain. 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 She follows [place]. Var[place] [facility]. Fallopian tube carcinoma s/p total hysterectomy and currently on chemotherapy ( doxorubicin) -CXR shows small bilateral pleural effusions -abdominal US shows RLQ hematoma 7x2x2.5cm and LLQ mild ascites -liver US shows early cirrhotic changes, gallbladder sludge, NL biliary duct caliber -b/l LE US neg for DVT -heme/onc c/s pending, pt requesting to see Dr. Grijalva. -likely functional bowel obstruction worsening pain, cont senna and miralax -hydromorphone HEAD INSULATION BOARD SAW OPERATOR will try to minimize as pt having worsening constipation at times -repeat abd US on 07/09, worsening moderate ascites, improvement in abd discomfort, likely from functional bowel obstruction, reports BM on 07/08 -Consult GI for possible drain, states will need ascites fluid w/u and to r/o other causes of ascites first, abd US ordered to r/o IVC obstruction -Palliative care c/s, poor prognosis at this time Hyponatremia, Na 129 on admission, slightly worsening, poor nutrition -IVF discontinued Monitor Hypervolemia/edema/pleural effusions lasix 20mg IV bid, still retaining more fluid Pt aware that this will likely help her pleural effusions and LE edema, but may not help with ascites Constipation: possibly related to ascites, no s/sx c/w SBO -senna 1 tab PO daily -magnesium hydroxide 17g PO daily -colace 100mg BID DVT prophylaxis -hold pharmacologic AC due to abdominal hematoma -SCD -ambulate as tolerated Full code Continued [facility] stay due to: inadequate oral pain control, multiple IV medications needed Discharge planning: home
[2017-07-12 19:33] VITALS: BP 114/80; PULSE 119; TEMP 36.9; O2SAT 93
[2017-07-12] MEDS: AMLODIPINE BESYLATE 5 MG TAB PO SCH (20:46)
[2017-07-12] MEDS: LORATADINE 10 MG TAB PO SCH (20:46)
[2017-07-12] MEDS ORDERED: LORAZEPAM INJ 1 MG in SYRINGE 0.5 ML IV STA (22:07)
[2017-07-12] MEDS: HYDROmorphone HCL 0.5MG/ML 50 ML CASSETTE IV PRN (22:42)
[2017-07-12 22:52] VITALS: BP 107/74; PULSE 112; TEMP 36.6; O2SAT 99
[2017-07-13] VITALS (7 sets, daily range): BP systolic 111–138; BP diastolic 74–85; PULSE 111–124; TEMP 36.6–36.9; O2SAT 90–99
[2017-07-13] MEDS: ALUMINUM/MAGNESIUM SUSP 30 ML UDC PO PRN (05:04)
[2017-07-13] MEDS: METOCLOPRAMIDE HCL INJ 5 MG/ML 2 ML VIAL IV. SCH ×3 (05:04→18:09)
[2017-07-13 06:06] LABS: BUN/CREATININE RATIO 25.8 (10-20); CALCIUM 8.6 mg/dl (8.5-10.1); CREATININE 0.36 mg/dl (0.60-1.20); POTASSIUM 3.7 mmol/L (3.5-5.1)
[2017-07-13] MEDS: CHECK FENTANYL PATCH PLACEMENT SCH ×2 (07:45→16:25)
[2017-07-13] MEDS: BOOST VANILLA PO SCH ×6 (08:00→17:30)
[2017-07-13] MEDS ORDERED: PANTOprazole SOD 40 MG TAB PO SCH (08:00)
[2017-07-13] MEDS: PROMETHAZINE HCL INJ 12.5 MG in SODIUM CHLORIDE 0.9% 50ML 50 ML IV PRN (08:20)
[2017-07-13] MEDS: LIDODERM (LIDOCAINE) PATCH 5% TD SCH (08:25)
[2017-07-13] MEDS: SENNA 8.6 MG TAB PO SCH (09:09)
[2017-07-13] MEDS: CEROVITE ADV FORMULA TAB PO SCH (09:09)
[2017-07-13] MEDS: DOCUSATE SODIUM 100 MG CAP PO SCH ×2 (09:10→22:02)
[2017-07-13] MEDS: CAPTOPRIL 25 MG TAB PO SCH ×2 (09:10→22:02)
[2017-07-13] MEDS: POLYETHYLENE (MIRALAX) 17 GM PACK PO SCH ×2 (09:17→22:02)
[2017-07-13] MEDS: HYDROmorphone HCL 0.5MG/ML 50 ML CASSETTE IV PRN ×3 (09:25→23:23)
--- NOTE | 2017-07-13 12:23 | Palliative Care Progress Note ---
Palliative Care Progress Note Date of Service Jul 13, 2017. Subjective Pt evaluation today including: conversation w/ patient, conversation w/ family (, Nemesio), physical exam, chart review, lab review, review of studies ( pathology report), conversation w/ [facility] consultant (Dr. Hargrove), review of inpatient medication list Pain: 6-05/30 PO Intake: small amounts Voiding: no voiding problems -Patient not feeling well today. Pain is still -05/30. Pain is mostly coming from her soreness/stiffness from lying in bed and sitting in chair 13/06. -Still having abdominal pain and dyspepsia. -Vomited twice over night, was brown/black color. -Patient states she is now moving bowels regularly, is dark and pasty today. -Has had 15.5mg IV hydromorphone in last 24 hours. 25mcg/hr fentanyl patch still on. -Patient does not want to be completely sedated. Review of Systems Constitutional: + weakness ENT: No trouble swallowing Respiratory: No cough, No shortness of breath Cardiac: + edema, No chest pain Abdomen: + pain, + nausea, + vomiting, + problem reported (reflux) Female : No problem reported Neurologic: + problem reported ("foggy-headed") Psychiatric: No anxiety Objective Vital Signs Date Time Temp Pulse Resp B/P (MAP) Pulse Ox O2 Delivery O2 Flow Rate FiO2 07/13/17 10:57 36.8 118 16 111/74 (86) 90 Room Air 07/13/17 08:00 Nasal Cannula 2.0 07/13/17 07:14 36.6 124 20 129/85 (100) 91 Room Air 07/13/17 04:13 36.8 114 20 132/78 (96) 90 Room Air 07/13/17 00:00 99 Nasal Cannula 2.0 07/12/17 22:52 36.6 112 16 107/74 (85) 99 Room Air 07/12/17 19:33 36.9 119 18 114/80 (91) 93 Room Air 07/12/17 16:00 Nasal Cannula 2.0 07/12/17 15:00 36.9 109 18 123/79 (94) 91 Physical Exam General Appearance: no apparent distress, + pertinent finding (chronically ill- appearing) ENT: hearing grossly normal Neck: supple, no JVD Respiratory/Chest: lungs clear, no respiratory distress, no accessory muscle use Cardiovascular: + tachycardia, + pertinent finding (+2-3 pitting edema of lower extremities) Abdomen: normal bowel sounds, soft, + distended, + tenderness Neurologic/Psychiatric: normal mood/affect, oriented x 3 (drowsy) Skin: + pallor Laboratory Results Last 24 Hours Test 07/13/17 05:35 Sodium Level 124 mmol/L Potassium Level 3.7 mmol/L Chloride Level 88 mmol/L Carbon Dioxide Level 31 mmol/L Anion Gap 5.0 mmol/L Blood Urea Nitrogen 9 mg/dl Creatinine 0.36 mg/dl Est Creatinine Clear Calc Drug Dose 213.9 ml/min Estimated GFR () 142.7 Estimated GFR (Non- 123.1 BUN/Creatinine Ratio 25.8 Random Glucose 121 mg/dl Calcium Level 8.6 mg/dl Albumin 2.2 gm/dl Assessment and Plan Problem list: Abdominal pain Metastatic fallopian tube cancer- has been through several rounds of chemotherapy in [place] and was also in a short clinical trial at the [facility]. She now follows with Dr. Grijalva. She had her first dose of doxorubicin two weeks ago. S/p paracentesis 06/28/17- 2.5L off, then developed rectus sheath hematoma BL lower extremity edema Hyponatremia Hypovolemia Hypoalbuminemia Goals of care (Z51.5) Palliative care recs: -Continue SOFTWARE BUSINESS ANALYST at current dose. It is important to patient to not be totally sedated. -Had paracentesis yesterday, patient reports some relief of abdominal pain/ fullness. -Recommend heating pad to back. -Had a discussion with patient, patient's Nemesio, myself, Dr. Hargrove, and medical student present. We had a discussion about the patient's deteriorating condition, end-stage cancer, ascites, persistent pain, hyponatremia, and poor nutritional status/low albumin. Despite our treatments in the hospital and short-term fixes, the overall condition remains the same. We discussed transitioning to palliative/hospice care. Patient looked at her and said, "I've been ready. You're the one who's not ready." was tearful but very supportive of patient. He had some questions about hospice and where it could happen; if it was possible to take patient home. I discussed some options, but really I'd like them to take some time to discuss with each other and their family. Further plans to be made. Will continue to follow. Palliative Performance Scale: 60 % Continued [facility] stay due to: inadequate oral pain control, multiple IV medications needed Discharge planning: home
[2017-07-13] MEDS: FENTANYL 25 MCG/HR TDSY TD SCH (13:18)
[2017-07-13] MEDS: FENTANYL PATCH REMOVE & WASTE SCH (13:33)
[2017-07-13] MEDS: ONDANSETRON INJ 2 MG/ML 2 ML VIAL IV PRN (13:41)
--- NOTE | 2017-07-13 15:03 | Progress Note ---
Subjective Date of Service: Jul 13, 2017. Subjective Pt evaluation today including: conversation w/ patient, conversation w/ family , physical exam, chart review, lab review, review of studies, conversation w/ field sales consultant, review of inpatient medication list Pt sitting up in bed Reports ongoing nausea/vomiting last night and this AM Reports worsening reflux as well at bedside Questions addressed Problem List Medical Problems: (1) Abdominal hemorrhage Status: Acute (2) Abdominal pain Status: Acute (3) Allergic reaction Status: Acute (4) Ascites Status: Acute (5) Hypokalemia Status: Acute (6) Hyponatremia Status: Acute (7) Hyponatremia Status: Acute (8) Intractable abdominal pain Status: Acute (9) Ovarian cancer Status: Acute (10) Rectus sheath hematoma Status: Acute Review of Systems Constitutional: No fever, No chills, No sweats Eyes: No worsening of vision, No eye pain, No redness, No discharge ENT: + trouble swallowing, No hearing loss, No unusual epistaxis, No nasal symptoms, No sore throat Respiratory: No cough, No sputum, No wheezing, No shortness of breath Cardiac: + edema, No chest pain, No orthopnea, No PND Abdomen: + nausea, + vomiting, No pain, No diarrhea, No constipation Musculoskeletal: + joint pain, + muscle pain, No swelling, No calf pain Female : No dysuria, No urinary frequency, No hematuria, No incontinence Neurologic: No memory loss, No paralysis, No weakness, No numbness/tingling Psychiatric: No depression symptoms, No anhedonism, No anxiety, No insomnia Endo: No fatigue, No excessive thirst Skin: No rash, No itch Objective Vital Signs Date Time Temp Pulse Resp B/P (MAP) Pulse Ox O2 Delivery O2 Flow Rate FiO2 07/13/17 10:57 36.8 118 16 111/74 (86) 90 Room Air 07/13/17 08:00 Nasal Cannula 2.0 07/13/17 07:14 36.6 124 20 129/85 (100) 91 Room Air 07/13/17 04:13 36.8 114 20 132/78 (96) 90 Room Air 07/13/17 00:00 99 Nasal Cannula 2.0 07/12/17 22:52 36.6 112 16 107/74 (85) 99 Room Air 07/12/17 19:33 36.9 119 18 114/80 (91) 93 Room Air 07/12/17 16:00 Nasal Cannula 2.0 Physical Exam General Appearance: WD/WN, no apparent distress Eyes: normal inspection, PERRL, EOMI, sclerae normal Neck: supple, no adenopathy, thyroid normal, no JVD Respiratory/Chest: chest non-tender, lungs clear, no accessory muscle use, + decreased breath sounds Cardiovascular: no gallop, no JVD, + tachycardia Abdomen: normal bowel sounds, non tender, soft, no organomegaly Extremities: normal range of motion, non-tender, normal inspection, + pedal edema Neurologic/Psychiatric: no motor/sensory deficits, alert, oriented x 3, + depressed affect Laboratory Results Last 24 Hours Test 07/13/17 05:35 Sodium Level 124 mmol/L Potassium Level 3.7 mmol/L Chloride Level 88 mmol/L Carbon Dioxide Level 31 mmol/L Anion Gap 5.0 mmol/L Blood Urea Nitrogen 9 mg/dl Creatinine 0.36 mg/dl Est Creatinine Clear Calc Drug Dose 213.9 ml/min Estimated GFR () 142.7 Estimated GFR (Non- 123.1 BUN/Creatinine Ratio 25.8 Random Glucose 121 mg/dl Calcium Level 8.6 mg/dl Albumin 2.2 gm/dl Assessment and Plan 52 y/o F with 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 She underwent paracentesis on 06/28/17 with mild symptomatic relief, however she developed a hematoma shortly after that has added to her pain. 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 She follows with Dr. Varner [facility] [place]ology. Fallopian tube carcinoma s/p total hysterectomy and currently on chemotherapy ( doxorubicin) -CXR shows small bilateral pleural effusions -abdominal US shows RLQ hematoma 7x2x2.5cm and LLQ mild ascites -liver US shows early cirrhotic changes, gallbladder sludge, NL biliary duct caliber -b/l LE US neg for DVT -heme/onc c/s pending, pt requesting to see Dr. Grijalva. -likely functional bowel obstruction worsening pain, cont senna and miralax -hydromorphone POLICE AIDE will try to minimize as pt having worsening constipation at times -repeat abd US on 07/09, worsening moderate ascites, improvement in abd discomfort, likely from functional bowel obstruction, reports BM on 07/08 -Consult GI for possible drain, states will need ascites fluid w/u and to r/o other causes of ascites first, abd US ordered and no noted IVC obstruction -Palliative care c/s, poor prognosis at this time, family discussion with palliative care team, family will reconvene at another time to continue discussion Hyponatremia, Na 129 on admission, slightly worsening, poor nutrition lasix discontinued, cont to monitor, likely from volume depletion and lasix dosing Hypervolemia/edema/pleural effusions lasix 20mg IV bid dced, still retaining more fluid Pt aware that this will likely help her pleural effusions and LE edema, but may not help with ascites Constipation: possibly related to ascites, no s/sx c/w SBO -senna 1 tab PO daily -magnesium hydroxide 17g PO daily -colace 100mg BID DVT prophylaxis -hold pharmacologic AC due to abdominal hematoma -SCD -ambulate as tolerated Full code Continued [facility] stay due to: inadequate oral pain control, multiple IV medications needed Discharge planning: home
--- NOTE | 2017-07-13 16:24 | Gastroenterology Progress Note ---
Progress Note Date of Service: Jul 13, 2017 Subjective Pt evaluation today including: conversation w/ patient, conversation w/ family ( and sister), physical exam, chart review, lab review, review of studies , review of inpatient medication list cc f/ u abd pain HPI Pt with continued abd pain but reasonably controlled on mediation. Nausea and vomiting black material. Passing black stools. Is moving her bowels. Review of Systems Respiratory: No shortness of breath Cardiac: No chest pain Medications Current Inpatient Medications Medications (Trade) Dose Ordered Sig/Luci Route Start Time Stop Time Status Last Admin Dose Admin Enoxaparin Sodium (Lovenox Inj) 40 mg HS SQ 07/05/17 21:00 08/04/17 20:59 Future Hold Acetaminophen (Tylenol Tab) 650 mg Q4H PRN PO 07/05/17 15:45 08/04/17 15:44 Ondansetron HCl (Zofran Inj) 4 mg Q6H PRN IV 07/05/17 15:45 08/04/17 15:44 07/13/17 13:41 4 MG Multivitamins/ Minerals (Multivitamin W/ Minerals Tab) 1 tab DAILY PO 07/06/17 08:00 08/05/17 08:59 07/13/17 09:09 1 TAB Captopril (Capoten Tab) 50 mg BID PO 07/05/17 18:30 08/04/17 18:29 07/13/17 09:10 50 MG Promethazine HCl 12.5 mg/Sodium Chloride 50.5 ml @ 204 mls/hr Q6H PRN IV 07/05/17 15:45 08/04/17 15:44 07/13/17 08:20 204 MLS/HR Bisacodyl (Dulcolax Tab) 5 mg BID PRN PO 07/05/17 15:45 08/04/17 15:44 07/10/17 20:30 5 MG Bisacodyl (Dulcolax Supp) 10 mg DAILY PRN MI 07/05/17 15:45 08/04/17 15:44 Naloxone HCl (Narcan Inj) 0.1 mg Q5M PRN IV 07/05/17 16:30 08/04/17 16:29 Hydromorphone HCl (Dilaudid Waist Presser) 25 mg PRN PRN IV 07/05/17 16:30 07/19/17 16:29 07/13/17 15:20 25 MG Loratadine (Claritin Tab) 10 mg HS PO 07/06/17 21:00 08/05/17 20:59 07/12/17 20:46 10 MG Amlodipine Besylate (Norvasc Tab) 10 mg HS PO 07/06/17 21:00 08/05/17 20:59 07/12/17 20:46 10 MG Heparin Sodium (Porcine) (Heparin 100 Unit/ml 5ml Flush) 5 ml PRN PRN IV 07/07/17 04:00 08/06/17 03:59 Lidocaine (Lidoderm Patch 5%) 2 patch DAILY@09 TD 07/08/17 09:00 08/07/17 08:59 Miscellaneous (Remove Lidoderm Patch) 2 ea DAILY@2100 N/A 07/07/17 21:00 08/06/17 20:59 07/07/17 21:05 2 EA Fentanyl (Duragesic Patch) 25 mcg Q72H TD 07/07/17 13:15 07/21/17 13:14 07/13/17 13:18 25 MCG Miscellaneous (Fentanyl Patch Remove & Waste) 1 ea Q3D N/A 07/10/17 13:15 08/09/17 13:14 07/13/17 13:33 1 EA Miscellaneous Information (Check Fentanyl Patch Placement) 1 ea QS N/A 07/07/17 16:00 08/06/17 15:59 07/13/17 07:45 1 EA Magnesium Hydroxide (Milk Of Magnesia Susp) 30 ml DAILY PRN PO 07/07/17 17:15 08/06/17 17:14 07/08/17 08:55 30 ML Senna (Senokot Tab) 8.6 mg QAM PO 07/09/17 08:00 08/08/17 07:59 07/13/17 09:09 8.6 MG Docusate Sodium (coLACE CAP) 100 mg BID PO 07/08/17 20:00 08/07/17 19:59 07/13/17 09:10 100 MG Polyethylene (Miralax Powder Packet) 17 gm BID PO 07/08/17 20:00 08/07/17 19:59 07/13/17 09:17 17 GM Sodium Chloride 1,000 ml @ 30 mls/hr Q24H IV 07/08/17 18:30 08/07/17 18:29 07/12/17 17:32 30 MLS/HR Miconazole Nitrate (Desenex Powder) 1 appln PRN PRN EXT 07/09/17 10:30 08/08/17 10:29 Enteral Nutritional Formula (Boost) 1 can TIDM PO 07/09/17 12:00 08/08/17 11:59 07/12/17 17:26 1 CAN Al Hydroxide/Mg Hydroxide (Maalox Susp) 30 ml Q6H PRN PO 07/10/17 09:15 08/09/17 09:14 07/13/17 05:04 30 ML Sodium Chloride ([place] Nasal [place]) 1 sprays PRN PRN NA 07/11/17 14:45 08/10/17 14:44 Metoclopramide HCl (Reglan Inj) 10 mg Q6H IV. 07/12/17 12:00 08/11/17 11:59 07/13/17 11:42 10 MG Pantoprazole Sodium (Protonix Tab) 40 mg QAM PO 07/13/17 08:00 08/12/17 07:59 07/13/17 09:10 40 MG Objective Vital Signs Date Time Temp Pulse Resp B/P (MAP) Pulse Ox O2 Delivery O2 Flow Rate FiO2 07/13/17 15:37 36.9 116 20 131/81 (98) 90 Room Air 07/13/17 10:57 36.8 118 16 111/74 (86) 90 Room Air 07/13/17 08:00 Nasal Cannula 2.0 07/13/17 07:14 36.6 124 20 129/85 (100) 91 Room Air 07/13/17 04:13 36.8 114 20 132/78 (96) 90 Room Air 07/13/17 00:00 99 Nasal Cannula 2.0 07/12/17 22:52 36.6 112 16 107/74 (85) 99 Room Air 07/12/17 19:33 36.9 119 18 114/80 (91) 93 Room Air Physical Exam General Appearance: WD/WN, no apparent distress Respiratory/Chest: lungs clear, normal breath sounds Cardiovascular: regular rate, rhythm, + pertinent finding (peripheral edema) Abdomen: normal bowel sounds, soft, + pertinent finding (distended but not tense, no guarding nor rebound, ) Laboratory Results Last 24 Hours Test 07/13/17 05:35 07/13/17 16:16 Sodium Level 124 mmol/L Potassium Level 3.7 mmol/L Chloride Level 88 mmol/L Carbon Dioxide Level 31 mmol/L Anion Gap 5.0 mmol/L Blood Urea Nitrogen 9 mg/dl Creatinine 0.36 mg/dl Est Creatinine Clear Calc Drug Dose 213.9 ml/min Estimated GFR () 142.7 Estimated GFR (Non- 123.1 BUN/Creatinine Ratio 25.8 Random Glucose 121 mg/dl Calcium Level 8.6 mg/dl Albumin 2.2 gm/dl Assessment and Plan ascites--SAAG 0.2 so doubt cirrhosis. 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 Poor prognosis. Hospice probably best option for patient.
[2017-07-13 16:57] LABS: EOS % 0.6 %; HEMATOCRIT 26.6 % (37-47); IG% 0.3 %; LYMPH % 11.2 %; MEAN CELL VOLUME 84.2 fL (80-100); MEAN CORPUSCULAR HEMOGLOBIN 28.5 pg (25-34); MEAN PLATELET VOLUME 8.6 fL (7.4-10.4); MONO % 12.6 %; NEUT % 75.3 %; PLATELET COUNT 240 K/uL (130-400); RED BLOOD COUNT 3.16 M/uL (4.2-5.4); WHITE BLOOD COUNT 6.26 K/uL (4.8-10.8)
[2017-07-13 17:14] LABS: COMPLETE YES; MEAN CORPUSCULAR HGB CONC 33.8 g/dl (32-36)
[2017-07-13] MEDS: PANTOprazole SOD 40 MG TAB PO SCH (18:09)
[2017-07-13] MEDS: SODIUM CHLORIDE 0.9% 1000ML 1,000 ML IV SCH (18:13)
[2017-07-13] MEDS ORDERED: LORAZEPAM 2 MG/ML 1 ML VIAL IV ONE (21:00)
[2017-07-13] MEDS: AMLODIPINE BESYLATE 5 MG TAB PO SCH (22:03)
[2017-07-13] MEDS: LORATADINE 10 MG TAB PO SCH (22:03)
[2017-07-14] VITALS (7 sets, daily range): BP systolic 117–131; BP diastolic 76–85; PULSE 104–115; TEMP 36.3–36.9; O2SAT 90–100
[2017-07-14] MEDS: CHECK FENTANYL PATCH PLACEMENT SCH ×3 (00:11→15:38)
[2017-07-14] MEDS: METOCLOPRAMIDE HCL INJ 5 MG/ML 2 ML VIAL IV. SCH ×4 (00:11→17:30)
[2017-07-14] MEDS: BOOST VANILLA PO SCH ×6 (01:00→17:00)
[2017-07-14] MEDS: PROMETHAZINE HCL INJ 12.5 MG in SODIUM CHLORIDE 0.9% 50ML 50 ML IV PRN ×2 (03:53→18:57)
[2017-07-14 06:46] LABS: BASO % 0.2 %; BASO ABS # 0.01 K/uL (0-0.2); EOS % 0.6 %; HEMATOCRIT 27.4 % (37-47); IG% 0.2 %; LYMPH % 12.9 %; LYMPH ABS # 0.63 K/uL (1.2-3.4); MEAN CELL VOLUME 86.7 fL (80-100); MEAN CORPUSCULAR HEMOGLOBIN 26.6 pg (25-34); MEAN CORPUSCULAR HGB CONC 30.7 g/dl (32-36); MEAN PLATELET VOLUME 9.3 fL (7.4-10.4); MONO % 15.9 %; NEUT % 70.2 %; PLATELET COUNT 278 K/uL (130-400); RED BLOOD COUNT 3.16 M/uL (4.2-5.4)
[2017-07-14 07:19] LABS: BUN/CREATININE RATIO 30.6 (10-20); CALCIUM 8.8 mg/dl (8.5-10.1); CREATININE 0.34 mg/dl (0.60-1.20); POTASSIUM 3.7 mmol/L (3.5-5.1)
[2017-07-14 07:54] LABS: COMPLETE YES
--- NOTE | 2017-07-14 08:38 | Hematology/Oncology Prog Note ---
Hematology/Onc Progress Note Date of Service Jul 14, 2017. Diagnoses 1. Metastatic ovarian cancer 2. Ascites 3. Electrolyte dysfunction. 4. Rectus sheath hematoma. 5. Intractable abdominal pain. Subjective Sherry is a pleasant but unfortunate 52-year-old female patient under the care of Dr. Ion Grijalva with metastatic ovarian carcinoma. She is now on hospital day 9. Continues to complain of abdominal fullness and bloating. Primary team incorporated Dilaudid pump which has been helpful. Electrolytes being replaced as appropriate. Sherry states she had conversations with the palliative care team and has decided to proceed with outpatient hospice. Engaged in discussion regarding the utility of a peritoneal drain which I think would be helpful at this juncture. Nursing reports no overnight issues. Vital Signs Vital Signs Past 12 Hours Date Time Temp Pulse Resp B/P (MAP) Pulse Ox O2 Delivery O2 Flow Rate FiO2 07/14/17 07:35 36.7 104 20 117/80 (92) 97 2.0 07/14/17 03:59 36.4 106 20 118/78 (91) 92 Room Air 07/14/17 00:02 36.4 113 18 118/76 (90) 90 Room Air 07/14/17 00:00 Nasal Cannula 2.0 07/13/17 22:01 116 138/82 (100) Physical Exam In general. 52-year-old female patient seen and examined at bedside in no acute distress. Skin. No active rash or lesions. HEENT oral mucosa without erythema or ulceration Heart. Regular rate and rhythm Lungs bibasilar crackles Abdomen markedly distended bowel sounds hypoactive Extremities one plus peripheral edema bilaterally. Neuro grossly intact Constitutional: Level of Distress: NAD, chronically ill Psychiatric: Mental Status: active & alert Orientation: oriented except where noted Lungs: Respiratory Effort: no dyspnea Auscuitation: CTA except as noted Cardiovascular: Heart Auscultation: RRR Abdomen: Inspection & Palpation: soft, no tenderness, guarding & rebound, distended Extremities: edema (1+ pitting edema bilaterally in ankles) Assessment & Plan 1. Ascites 2. Intractable abdominal pain 3. Metastatic ovarian cancer 4. Electrolyte abnormalities. 5. Rectus sheath hematoma. Sherry was seen and examined at bedside today. Abdomen significantly distended again will require another paracentesis. I discussed the utility of having PEG tube placed especially considering outpatient hospice. I will inform Dr. Grijalva and the patient's decision to pursue palliative care. Pain control remains challenge which is prolonging her hospitalization. Recommend electrolyte replacement as clinically indicated. She suffers from mild anemia and no intervention is required at this time. Will continue to follow her periodically throughout her hospital stay. Unfortunately, her prognosis is very poor. Nothing further to add and we will officially sign off. Please contact us if there are any concerns or questions.
[2017-07-14] MEDS: ALUMINUM/MAGNESIUM SUSP 30 ML UDC PO PRN ×2 (08:39→15:45)
[2017-07-14] MEDS: DOCUSATE SODIUM 100 MG CAP PO SCH ×2 (08:46→20:45)
[2017-07-14] MEDS: CAPTOPRIL 25 MG TAB PO SCH ×2 (08:46→20:46)
[2017-07-14] MEDS: SENNA 8.6 MG TAB PO SCH (08:47)
[2017-07-14] MEDS: PANTOprazole SOD 40 MG TAB PO SCH ×2 (08:47→17:29)
[2017-07-14] MEDS: CEROVITE ADV FORMULA TAB PO SCH (08:47)
[2017-07-14] MEDS ORDERED: POLYETHYLENE (MIRALAX) 17 GM PACK ONE (08:53)
[2017-07-14] MEDS: POLYETHYLENE (MIRALAX) 17 GM PACK PO SCH ×2 (08:54→20:43)
[2017-07-14] MEDS: LIDODERM (LIDOCAINE) PATCH 5% TD SCH (08:54)
[2017-07-14] MEDS ORDERED: RANITIDINE HCL 150 MG TAB PO ONE (11:30)
[2017-07-14] MEDS: HYDROmorphone HCL 0.5MG/ML 50 ML CASSETTE IV PRN ×2 (13:24→15:37)
--- NOTE | 2017-07-14 14:20 | Gastroenterology Progress Note ---
Progress Note Date of Service: Jul 14, 2017 Subjective Pt evaluation today including: conversation w/ patient, conversation w/ family (), physical exam, chart review, lab review, review of studies, review of inpatient medication list CC f/u abd pain HPI Not eating well. Vomits some kovacs material. No BM today. Complains of ongoing heartburn. Has continued abd pain. Review of Systems Respiratory: No shortness of breath Cardiac: No chest pain Medications Current Inpatient Medications Medications (Trade) Dose Ordered Sig/Luci Route Start Time Stop Time Status Last Admin Dose Admin Enoxaparin Sodium (Lovenox Inj) 40 mg HS SQ 07/05/17 21:00 08/04/17 20:59 Future Hold Acetaminophen (Tylenol Tab) 650 mg Q4H PRN PO 07/05/17 15:45 08/04/17 15:44 Ondansetron HCl (Zofran Inj) 4 mg Q6H PRN IV 07/05/17 15:45 08/04/17 15:44 07/13/17 13:41 4 MG Multivitamins/ Minerals (Multivitamin W/ Minerals Tab) 1 tab DAILY PO 07/06/17 08:00 08/05/17 08:59 07/14/17 08:47 1 TAB Captopril (Capoten Tab) 50 mg BID PO 07/05/17 18:30 08/04/17 18:29 07/14/17 08:46 50 MG Promethazine HCl 12.5 mg/Sodium Chloride 50.5 ml @ 204 mls/hr Q6H PRN IV 07/05/17 15:45 08/04/17 15:44 07/14/17 03:53 204 MLS/HR Bisacodyl (Dulcolax Tab) 5 mg BID PRN PO 07/05/17 15:45 08/04/17 15:44 07/10/17 20:30 5 MG Bisacodyl (Dulcolax Supp) 10 mg DAILY PRN IA 07/05/17 15:45 08/04/17 15:44 Naloxone HCl (Narcan Inj) 0.1 mg Q5M PRN IV 07/05/17 16:30 08/04/17 16:29 Hydromorphone HCl (Dilaudid Barrel Inspector Tight) 25 mg PRN PRN IV 07/05/17 16:30 07/19/17 16:29 07/14/17 13:24 25 MG Loratadine (Claritin Tab) 10 mg HS PO 07/06/17 21:00 08/05/17 20:59 07/13/17 22:03 10 MG Amlodipine Besylate (Norvasc Tab) 10 mg HS PO 07/06/17 21:00 08/05/17 20:59 07/13/17 22:03 10 MG Heparin Sodium (Porcine) (Heparin 100 Unit/ml 5ml Flush) 5 ml PRN PRN IV 07/07/17 04:00 08/06/17 03:59 Lidocaine (Lidoderm Patch 5%) 2 patch DAILY@09 TD 07/08/17 09:00 08/07/17 08:59 Miscellaneous (Remove Lidoderm Patch) 2 ea DAILY@2100 N/A 07/07/17 21:00 08/06/17 20:59 07/07/17 21:05 2 EA Fentanyl (Duragesic Patch) 25 mcg Q72H TD 07/07/17 13:15 07/21/17 13:14 07/13/17 13:18 25 MCG Miscellaneous (Fentanyl Patch Remove & Waste) 1 ea Q3D N/A 07/10/17 13:15 08/09/17 13:14 07/13/17 13:33 1 EA Miscellaneous Information (Check Fentanyl Patch Placement) 1 ea QS N/A 07/07/17 16:00 08/06/17 15:59 07/14/17 08:44 1 EA Magnesium Hydroxide (Milk Of Magnesia Susp) 30 ml DAILY PRN PO 07/07/17 17:15 08/06/17 17:14 07/08/17 08:55 30 ML Senna (Senokot Tab) 8.6 mg QAM PO 07/09/17 08:00 08/08/17 07:59 07/14/17 08:47 8.6 MG Docusate Sodium (coLACE CAP) 100 mg BID PO 07/08/17 20:00 08/07/17 19:59 07/14/17 08:46 100 MG Polyethylene (Miralax Powder Packet) 17 gm BID PO 07/08/17 20:00 08/07/17 19:59 07/14/17 08:54 17 GM Sodium Chloride 1,000 ml @ 30 mls/hr Q24H IV 07/08/17 18:30 08/07/17 18:29 07/13/17 18:13 30 MLS/HR Miconazole Nitrate (Desenex Powder) 1 appln PRN PRN EXT 07/09/17 10:30 08/08/17 10:29 Enteral Nutritional Formula (Boost) 1 can TIDM PO 07/09/17 12:00 08/08/17 11:59 07/14/17 01:00 1 CAN Al Hydroxide/Mg Hydroxide (Maalox Susp) 30 ml Q6H PRN PO 07/10/17 09:15 08/09/17 09:14 07/14/17 08:39 30 ML Sodium Chloride ([place] Nasal [place]) 1 sprays PRN PRN NA 07/11/17 14:45 08/10/17 14:44 Metoclopramide HCl (Reglan Inj) 10 mg Q6H IV. 07/12/17 12:00 08/11/17 11:59 07/14/17 12:37 10 MG Pantoprazole Sodium (Protonix Tab) 40 mg BIDM PO 07/13/17 17:00 08/12/17 07:59 07/14/17 08:47 40 MG Ranitidine HCl (zANTac TAB) 150 mg BID PO 07/14/17 20:00 08/13/17 19:59 Objective Vital Signs Date Time Temp Pulse Resp B/P (MAP) Pulse Ox O2 Delivery O2 Flow Rate FiO2 07/14/17 12:08 36.5 104 16 120/82 (95) 100 Nasal Cannula 3.0 07/14/17 08:00 Nasal Cannula 2.0 07/14/17 07:35 36.7 104 20 117/80 (92) 97 2.0 07/14/17 03:59 36.4 106 20 118/78 (91) 92 Room Air 07/14/17 00:02 36.4 113 18 118/76 (90) 90 Room Air 07/14/17 00:00 Nasal Cannula 2.0 07/13/17 22:01 116 138/82 (100) 07/13/17 20:30 Nasal Cannula 2.0 07/13/17 19:16 36.7 111 18 123/84 (97) 96 Nasal Cannula 07/13/17 16:15 Nasal Cannula 2.0 07/13/17 15:37 36.9 116 20 131/81 (98) 90 Room Air Physical Exam General Appearance: WD/WN, no apparent distress Respiratory/Chest: lungs clear, no respiratory distress Cardiovascular: no murmur Abdomen: normal bowel sounds, soft, + pertinent finding (protuberant from ascites but not tense, NO guarding nor rebound.) Laboratory Results Last 24 Hours Test 07/13/17 16:45 07/14/17 05:09 White Blood Count 6.26 K/uL 4.90 K/uL Red Blood Count 3.16 M/uL 3.16 M/uL Hemoglobin 9.0 g/dL 8.4 g/dL Hematocrit 26.6 % 27.4 % Mean Corpuscular Volume 84.2 fL 86.7 fL Mean Corpuscular Hemoglobin 28.5 pg 26.6 pg Mean Corpuscular Hemoglobin Concent 33.8 g/dl 30.7 g/dl Platelet Count 240 K/uL 278 K/uL Mean Platelet Volume 8.6 fL 9.3 fL Neutrophils (%) (Auto) 75.3 % 70.2 % Lymphocytes (%) (Auto) 11.2 % 12.9 % Monocytes (%) (Auto) 12.6 % 15.9 % Eosinophils (%) (Auto) 0.6 % 0.6 % Basophils (%) (Auto) 0.0 % 0.2 % Neutrophils # (Auto) 4.71 K/uL 3.44 K/uL Lymphocytes # (Auto) 0.70 K/uL 0.63 K/uL Monocytes # (Auto) 0.79 K/uL 0.78 K/uL Eosinophils # (Auto) 0.04 K/uL 0.03 K/uL Basophils # (Auto) 0.00 K/uL 0.01 K/uL RDW Standard Deviation 43.7 fL 45.2 fL RDW Coefficient of Variation 14.1 % 14.2 % Immature Granulocyte % (Auto) 0.3 % 0.2 % Immature Granulocyte # (Auto) 0.02 K/uL 0.01 K/uL Red Blood Cell Morphology Unremarkable Sodium Level 125 mmol/L Potassium Level 3.7 mmol/L Chloride Level 87 mmol/L Carbon Dioxide Level 32 mmol/L Anion Gap 6.0 mmol/L Blood Urea Nitrogen 10 mg/dl Creatinine 0.34 mg/dl Est Creatinine Clear Calc Drug Dose 228.8 ml/min Estimated GFR () 145.4 Estimated GFR (Non- 125.4 BUN/Creatinine Ratio 30.6 Random Glucose 115 mg/dl Calcium Level 8.8 mg/dl Assessment and Plan ascites--SAAG 0.2 so doubt cirrhosis. 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 anemia--follow H and H and transfuse prn hematemesis---increased PPI to bid, mentioned EGD but patient declined--- etiiology includes koffi neumann tear,PUD, cancer melena--see hemetemesis constipaiton--stable, continue laxatives. Poor prognosis. Hospice probably best option for patient. No further recommendations. Will sign off. Please call for further questions.
--- NOTE | 2017-07-14 15:59 | Progress Note ---
Subjective Date of Service: Jul 14, 2017. Subjective Pt evaluation today including: conversation w/ patient, physical exam, chart review, lab review, review of studies, review of inpatient medication list Family conversation Would like to pursue home hospice States nausea continued and worsening reflux Problem List Medical Problems: (1) Abdominal hemorrhage Status: Acute (2) Abdominal pain Status: Acute (3) Allergic reaction Status: Acute (4) Ascites Status: Acute (5) Hypokalemia Status: Acute (6) Hyponatremia Status: Acute (7) Hyponatremia Status: Acute (8) Intractable abdominal pain Status: Acute (9) Ovarian cancer Status: Acute (10) Rectus sheath hematoma Status: Acute Review of Systems Constitutional: No fever, No chills, No sweats, No weakness Eyes: No worsening of vision, No eye pain, No redness, No discharge Respiratory: No cough, No sputum, No wheezing, No shortness of breath, No dyspnea on exertion Cardiac: No chest pain, No orthopnea, No PND, No edema, No claudication Abdomen: No pain, No nausea, No vomiting, No diarrhea, No constipation Musculoskeletal: No joint pain, No muscle pain, No swelling, No calf pain Female : No dysuria, No urinary frequency, No hematuria, No incontinence Neurologic: No memory loss, No paralysis, No weakness, No numbness/tingling Psychiatric: No depression symptoms, No anhedonism, No anxiety, No insomnia Endo: No fatigue, No excessive thirst Skin: No rash, No itch Objective Vital Signs Date Time Temp Pulse Resp B/P (MAP) Pulse Ox O2 Delivery O2 Flow Rate FiO2 07/14/17 12:08 36.5 104 16 120/82 (95) 100 Nasal Cannula 3.0 07/14/17 08:00 Nasal Cannula 2.0 07/14/17 07:35 36.7 104 20 117/80 (92) 97 2.0 07/14/17 03:59 36.4 106 20 118/78 (91) 92 Room Air 07/14/17 00:02 36.4 113 18 118/76 (90) 90 Room Air 07/14/17 00:00 Nasal Cannula 2.0 07/13/17 22:01 116 138/82 (100) 07/13/17 20:30 Nasal Cannula 2.0 07/13/17 19:16 36.7 111 18 123/84 (97) 96 Nasal Cannula 07/13/17 16:15 Nasal Cannula 2.0 Physical Exam General Appearance: WD/WN, + mild distress Neck: supple, no adenopathy, thyroid normal Respiratory/Chest: chest non-tender, lungs clear, normal breath sounds, no respiratory distress Cardiovascular: regular rate, rhythm, no edema, no gallop, no JVD Abdomen: normal bowel sounds, non tender, soft, no organomegaly Extremities: normal range of motion, non-tender, normal inspection, no pedal edema Neurologic/Psychiatric: no motor/sensory deficits, alert, oriented x 3, + depressed affect Laboratory Results Last 24 Hours Test 07/13/17 16:45 07/14/17 05:09 White Blood Count 6.26 K/uL 4.90 K/uL Red Blood Count 3.16 M/uL 3.16 M/uL Hemoglobin 9.0 g/dL 8.4 g/dL Hematocrit 26.6 % 27.4 % Mean Corpuscular Volume 84.2 fL 86.7 fL Mean Corpuscular Hemoglobin 28.5 pg 26.6 pg Mean Corpuscular Hemoglobin Concent 33.8 g/dl 30.7 g/dl Platelet Count 240 K/uL 278 K/uL Mean Platelet Volume 8.6 fL 9.3 fL Neutrophils (%) (Auto) 75.3 % 70.2 % Lymphocytes (%) (Auto) 11.2 % 12.9 % Monocytes (%) (Auto) 12.6 % 15.9 % Eosinophils (%) (Auto) 0.6 % 0.6 % Basophils (%) (Auto) 0.0 % 0.2 % Neutrophils # (Auto) 4.71 K/uL 3.44 K/uL Lymphocytes # (Auto) 0.70 K/uL 0.63 K/uL Monocytes # (Auto) 0.79 K/uL 0.78 K/uL Eosinophils # (Auto) 0.04 K/uL 0.03 K/uL Basophils # (Auto) 0.00 K/uL 0.01 K/uL RDW Standard Deviation 43.7 fL 45.2 fL RDW Coefficient of Variation 14.1 % 14.2 % Immature Granulocyte % (Auto) 0.3 % 0.2 % Immature Granulocyte # (Auto) 0.02 K/uL 0.01 K/uL Red Blood Cell Morphology Unremarkable Sodium Level 125 mmol/L Potassium Level 3.7 mmol/L Chloride Level 87 mmol/L Carbon Dioxide Level 32 mmol/L Anion Gap 6.0 mmol/L Blood Urea Nitrogen 10 mg/dl Creatinine 0.34 mg/dl Est Creatinine Clear Calc Drug Dose 228.8 ml/min Estimated GFR () 145.4 Estimated GFR (Non- 125.4 BUN/Creatinine Ratio 30.6 Random Glucose 115 mg/dl Calcium Level 8.8 mg/dl Assessment and Plan 52 y/o F with 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 She underwent paracentesis on 06/28/17 with mild symptomatic relief, however she developed a hematoma shortly after that has added to her pain. She is in considerable pain today requiring RIFLE CASE REPAIRER hydromorphone. She follows with Dr. Varner [facility] oncology. Fallopian tube carcinoma s/p total hysterectomy and currently on chemotherapy ( doxorubicin) -CXR shows small bilateral pleural effusions -abdominal US shows RLQ hematoma 7x2x2.5cm and LLQ mild ascites -liver US shows early cirrhotic changes, gallbladder sludge, NL biliary duct caliber -b/l LE US neg for DVT -heme/onc c/s pending, pt requesting to see Dr. Grijalva. -likely functional bowel obstruction worsening pain, cont senna and miralax -hydromorphone RIFLE CASE REPAIRER will try to minimize as pt having worsening constipation at times -repeat abd US on 07/09, worsening moderate ascites, improvement in abd discomfort, likely from functional bowel obstruction, reports BM on 07/08 -Consult GI for possible drain, states will need ascites fluid w/u and to r/o other causes of ascites first, abd US ordered and no noted IVC obstruction -Cont PPI BID in addition to zantac 150 mg PO BID -Palliative care c/s, poor prognosis at this time, family discussion with palliative care team, seeking home hospice Hyponatremia, Na 129 on admission, slightly worsening, poor nutrition lasix discontinued, cont to monitor, likely from volume depletion and lasix dosing Hypervolemia/edema/pleural effusions lasix 20mg IV bid dced, still retaining more fluid Pt aware that this will likely help her pleural effusions and LE edema, but may not help with ascites Constipation: possibly related to ascites, no s/sx c/w SBO -senna 1 tab PO daily -magnesium hydroxide 17g PO daily -colace 100mg BID DVT prophylaxis -hold pharmacologic AC due to abdominal hematoma -SCD -ambulate as tolerated Full code Continued [facility] stay due to: inadequate oral pain control, multiple IV medications needed Discharge planning: home
--- NOTE | 2017-07-14 16:35 | Palliative Care Progress Note ---
Palliative Care Progress Note Date of Service Jul 14, 2017. Subjective Pt evaluation today including: conversation w/ patient, conversation w/ family (daughter, Ashley and , Judd), physical exam, chart review, conversation w / senior consultant Pain: 5/10 PO Intake: barely tolerating small amounts Voiding: jurado catheter in place -Patient and family confirmed that plan/goal is for home with hospice. -Patient is better today, pain is better. received 20mg Dilaudid in 24 hours. Has 25mcg/hr fentanyl patch. She does not want her pain medication increased at this time. -Did not move bowels yet today. -Having dyspepsia, Dr. Hargrove to start Zantac, patient encouraged to use Maalox. Review of Systems Constitutional: + weakness ENT: + see HPI, No trouble swallowing Respiratory: No cough, No shortness of breath Cardiac: + edema, No chest pain Abdomen: + pain, + vomiting, No nausea Female : No problem reported Psychiatric: No depression symptoms, No anxiety Objective Vital Signs Date Time Temp Pulse Resp B/P (MAP) Pulse Ox O2 Delivery O2 Flow Rate FiO2 07/14/17 16:20 36.3 111 17 131/85 (100) 94 Room Air 07/14/17 12:08 36.5 104 16 120/82 (95) 100 Nasal Cannula 3.0 07/14/17 08:00 Nasal Cannula 2.0 07/14/17 07:35 36.7 104 20 117/80 (92) 97 2.0 07/14/17 03:59 36.4 106 20 118/78 (91) 92 Room Air 07/14/17 00:02 36.4 113 18 118/76 (90) 90 Room Air 07/14/17 00:00 Nasal Cannula 2.0 07/13/17 22:01 116 138/82 (100) 07/13/17 20:30 Nasal Cannula 2.0 07/13/17 19:16 36.7 111 18 123/84 (97) 96 Nasal Cannula Physical Exam General Appearance: no apparent distress ENT: hearing grossly normal Neck: supple, no JVD Respiratory/Chest: lungs clear, no respiratory distress, no accessory muscle use Cardiovascular: regular rate, rhythm, + normal peripheral pulses, + pertinent finding (BLE edema unchanged) Abdomen: normal bowel sounds, non tender, soft Neurologic/Psychiatric: alert, normal mood/affect, oriented x 3 Skin: + pallor, + pertinent finding (pekid) Laboratory Results Last 24 Hours Test 07/13/17 16:45 07/14/17 05:09 White Blood Count 6.26 K/uL 4.90 K/uL Red Blood Count 3.16 M/uL 3.16 M/uL Hemoglobin 9.0 g/dL 8.4 g/dL Hematocrit 26.6 % 27.4 % Mean Corpuscular Volume 84.2 fL 86.7 fL Mean Corpuscular Hemoglobin 28.5 pg 26.6 pg Mean Corpuscular Hemoglobin Concent 33.8 g/dl 30.7 g/dl Platelet Count 240 K/uL 278 K/uL Mean Platelet Volume 8.6 fL 9.3 fL Neutrophils (%) (Auto) 75.3 % 70.2 % Lymphocytes (%) (Auto) 11.2 % 12.9 % Monocytes (%) (Auto) 12.6 % 15.9 % Eosinophils (%) (Auto) 0.6 % 0.6 % Basophils (%) (Auto) 0.0 % 0.2 % Neutrophils # (Auto) 4.71 K/uL 3.44 K/uL Lymphocytes # (Auto) 0.70 K/uL 0.63 K/uL Monocytes # (Auto) 0.79 K/uL 0.78 K/uL Eosinophils # (Auto) 0.04 K/uL 0.03 K/uL Basophils # (Auto) 0.00 K/uL 0.01 K/uL RDW Standard Deviation 43.7 fL 45.2 fL RDW Coefficient of Variation 14.1 % 14.2 % Immature Granulocyte % (Auto) 0.3 % 0.2 % Immature Granulocyte # (Auto) 0.02 K/uL 0.01 K/uL Red Blood Cell Morphology Unremarkable Sodium Level 125 mmol/L Potassium Level 3.7 mmol/L Chloride Level 87 mmol/L Carbon Dioxide Level 32 mmol/L Anion Gap 6.0 mmol/L Blood Urea Nitrogen 10 mg/dl Creatinine 0.34 mg/dl Est Creatinine Clear Calc Drug Dose 228.8 ml/min Estimated GFR () 145.4 Estimated GFR (Non- 125.4 BUN/Creatinine Ratio 30.6 Random Glucose 115 mg/dl Calcium Level 8.8 mg/dl Assessment and Plan Problem list: Abdominal pain Metastatic fallopian tube cancer- has been through several rounds of chemotherapy in [place] and was also in a short clinical trial at the [facility]. She now follows with Dr. Grijalva. She had her first dose of doxorubicin two weeks ago. S/p paracentesis 06/28/17- 2.5L off, then developed rectus sheath hematoma BL lower extremity edema Hyponatremia Hypovolemia Hypoalbuminemia Goals of care (Z51.5) Palliative care recs: -Continue OTOLARYNGOLOGIST at current dose. It is important to patient to not be totally sedated. -Had paracentesis two days ago, patient reports some relief of abdominal pain/ fullness but not much. She is likely reaccumulating ascites. -Recommend heating pad to back. -Had a discussion with patient, patient's [place], and daughter Ashley. It was discussed that patient would not receive peritoneal drain due to high risk. Patient does not feel that she would like to undergo frequent paracenteses at this time as she did not gain much comfort afterwards and it would keep her coming back to the hospital. We discussed feeding tube if she gets to the point of not being able to eat-- she and her family agree that patient would never want to be artificially feed. Also talked about going home with OTOLARYNGOLOGIST pump with hospice-- patient and family would like to pursue this route. innovation manager is working on discharge planning. -Should have POLST prior to discharge. Code status needs addressed. Will continue to follow. Palliative Performance Scale: 40 % Continued [facility] stay due to: inadequate oral pain control, multiple IV medications needed Discharge planning: home
--- NOTE | 2017-07-14 17:00 | ONCOLOGY CONSULTATION ---
DATE OF CONSULTATION: 07/07/2017 HISTORY OF PRESENT ILLNESS: Mrs. Ferro has metastatic progressive fallopian tube carcinoma which has failed multiple chemotherapy regimens. Her care was administered initially in [place] and then subsequently at the [facility]. I saw her as an outpatient in second opinion consultation after she had seen Dr. Grijalva in [place]. I started her on Doxil chemotherapy. She also underwent outpatient paracentesis for comfort. She has now been readmitted to [facility] with worsening abdominal pain. Previous CT scan showed a hematoma in the rectus sheath and it was assumed that her pain was due to that. However, in my opinion, her pain is due to her progressive cancer. I met with her and her family in her hospital room on the afternoon of 07/07/2017. I added Reglan to her drug regimen as she was moving very little intestinal flatus or stool. I was hopeful that that would improve her motility which has been impaired by her cancer and her narcotic use. I ordered an abdominal x-ray when I saw her on July 07 and that showed no evidence of bowel obstruction. Upon subsequent review of her chart, I notice that Dr. Grijalva is now involved again in her. As a result, I will not see her any further in followup. All of her care will be deferred to Dr. Grijalva. [facility]ITAL[facility]ustino
[2017-07-14] MEDS: SODIUM CHLORIDE 0.9% 1000ML 1,000 ML IV SCH (18:41)
[2017-07-14] MEDS: AMLODIPINE BESYLATE 5 MG TAB PO SCH (20:44)
[2017-07-14] MEDS: LORATADINE 10 MG TAB PO SCH (20:45)
[2017-07-14] MEDS: RANITIDINE HCL 150 MG TAB PO SCH (20:46)
[2017-07-14] MEDS: ONDANSETRON INJ 2 MG/ML 2 ML VIAL IV PRN (21:46)
[2017-07-15] MEDS: METOCLOPRAMIDE HCL INJ 5 MG/ML 2 ML VIAL IV. SCH ×3 (00:13→11:58)
[2017-07-15] MEDS: CHECK FENTANYL PATCH PLACEMENT SCH ×2 (00:24→07:45)
[2017-07-15 00:27] VITALS: BP 123/77; PULSE 111; TEMP 36.7; O2SAT 92
[2017-07-15 04:32] VITALS: BP 128/81; PULSE 11; TEMP 36.8; O2SAT 91
[2017-07-15 06:25] LABS: BASO % 0.3 %; BASO ABS # 0.01 K/uL (0-0.2); EOS % 1.3 %; HEMATOCRIT 25.6 % (37-47); IG% 0.3 %; LYMPH % 11.9 %; LYMPH ABS # 0.45 K/uL (1.2-3.4); MEAN CELL VOLUME 85.6 fL (80-100); MEAN CORPUSCULAR HEMOGLOBIN 26.8 pg (25-34); MEAN CORPUSCULAR HGB CONC 31.3 g/dl (32-36); MEAN PLATELET VOLUME 9.1 fL (7.4-10.4); MONO % 21.4 %; NEUT % 64.8 %; PLATELET COUNT 280 K/uL (130-400); RED BLOOD COUNT 2.99 M/uL (4.2-5.4); WHITE BLOOD COUNT 3.78 K/uL (4.8-10.8)
[2017-07-15 06:52] LABS: BLOOD UREA NITROGEN 11 mg/dl (7-18); CALCIUM 8.5 mg/dl (8.5-10.1); CARBON DIOXIDE 31 mmol/L (21-32); CHLORIDE 90 mmol/L (98-107); GLUCOSE 97 mg/dl (70-99); POTASSIUM 3.8 mmol/L (3.5-5.1); SODIUM 128 mmol/L (136-145)
[2017-07-15] MEDS: DOCUSATE SODIUM 100 MG CAP PO SCH (07:43)
[2017-07-15] MEDS: RANITIDINE HCL 150 MG TAB PO SCH (07:44)
[2017-07-15] MEDS: SENNA 8.6 MG TAB PO SCH (07:44)
[2017-07-15] MEDS: CEROVITE ADV FORMULA TAB PO SCH (07:44)
[2017-07-15] MEDS: PANTOprazole SOD 40 MG TAB PO SCH (07:44)
[2017-07-15] MEDS: POLYETHYLENE (MIRALAX) 17 GM PACK PO SCH (07:45)
[2017-07-15] MEDS: LIDODERM (LIDOCAINE) PATCH 5% TD SCH (07:45)
[2017-07-15 07:54] LABS: COMPLETE YES; HYPOCHROMIA PRESENT
[2017-07-15] MEDS: BOOST VANILLA PO SCH ×4 (08:00→12:14)
[2017-07-15 08:04] VITALS: BP 118/78; PULSE 110; TEMP 36.4; O2SAT 91
[2017-07-15] MEDS: CAPTOPRIL 25 MG TAB PO SCH (09:26)
--- NOTE | 2017-07-15 09:55 | Medical Student: [facility] ---
Med Student Progress Note Date of Service Jul 15, 2017. Subjective Pt evaluation today including: conversation w/ patient, conversation w/ family , physical exam, lab review Voiding: jurado catheter in place Patient examined sitting in bedside chair. No acute events overnight. She feels that today is a "good day" compared to her last couple of days. She is not in pain. Denies fever, chills, cp, sob, n/v/d, abdominal pain, calf pain. We discussed her potential discharge and answered her questions regarding hospice. No other complaints at this time. Review of Systems Constitutional: No fever, No chills Eyes: No worsening of vision, No diplopia ENT: + problem reported (hiccups), No sore throat, No trouble swallowing Respiratory: No cough, No shortness of breath Cardiac: No chest pain, No palpitations Abdomen: No pain, No nausea, No vomiting, No diarrhea Musculoskeletal: No muscle pain, No calf pain Neurologic: No paralysis, No numbness/tingling Psychiatric: No depression symptoms, No anxiety Skin: No rash, No itch Objective Vital Signs Date Time Temp Pulse Resp B/P (MAP) Pulse Ox O2 Delivery O2 Flow Rate FiO2 07/15/17 08:04 36.4 110 16 118/78 (91) 91 Room Air 07/15/17 04:32 36.8 11 18 128/81 (97) 91 Room Air 07/15/17 00:27 36.7 111 18 123/77 (92) 92 07/15/17 00:00 Nasal Cannula 3.0 07/14/17 19:08 36.9 115 18 128/80 (96) 91 Room Air 07/14/17 16:20 36.3 111 17 131/85 (100) 94 Room Air 07/14/17 16:00 Nasal Cannula 2.0 07/14/17 12:30 100 Nasal Cannula 3.0 07/14/17 12:08 36.5 104 16 120/82 (95) 100 Nasal Cannula 3.0 Physical Exam General Appearance: no apparent distress Eyes: bilateral eyes normal inspection, bilateral eyes PERRL, bilateral eyes EOMI ENT: normal ENT inspection, hearing grossly normal, pharynx normal Neck: supple, no adenopathy Respiratory/Chest: lungs clear, normal breath sounds, no respiratory distress, no accessory muscle use Cardiovascular: regular rate, rhythm, no gallop, no murmur Abdomen: normal bowel sounds, non tender, soft Extremities: non-tender, normal inspection, no calf tenderness Neurologic/Psychiatric: alert, normal mood/affect, oriented x 3 Skin: normal color, warm/dry, + pertinent finding (RLQ hematoma improving) Laboratory Results Last 24 Hours Test 07/15/17 05:17 White Blood Count 3.78 K/uL Red Blood Count 2.99 M/uL Hemoglobin 8.0 g/dL Hematocrit 25.6 % Mean Corpuscular Volume 85.6 fL Mean Corpuscular Hemoglobin 26.8 pg Mean Corpuscular Hemoglobin Concent 31.3 g/dl Platelet Count 280 K/uL Mean Platelet Volume 9.1 fL Neutrophils (%) (Auto) 64.8 % Lymphocytes (%) (Auto) 11.9 % Monocytes (%) (Auto) 21.4 % Eosinophils (%) (Auto) 1.3 % Basophils (%) (Auto) 0.3 % Neutrophils # (Auto) 2.45 K/uL Lymphocytes # (Auto) 0.45 K/uL Monocytes # (Auto) 0.81 K/uL Eosinophils # (Auto) 0.05 K/uL Basophils # (Auto) 0.01 K/uL RDW Standard Deviation 45.2 fL RDW Coefficient of Variation 14.4 % Immature Granulocyte % (Auto) 0.3 % Immature Granulocyte # (Auto) 0.01 K/uL Hypochromasia PRESENT Sodium Level 128 mmol/L Potassium Level 3.8 mmol/L Chloride Level 90 mmol/L Carbon Dioxide Level 31 mmol/L Anion Gap 7.0 mmol/L Blood Urea Nitrogen 11 mg/dl Creatinine 0.30 mg/dl Est Creatinine Clear Calc Drug Dose 260.9 ml/min Estimated GFR () > 150.0 Estimated GFR (Non- 130.7 BUN/Creatinine Ratio 38.0 Random Glucose 97 mg/dl Calcium Level 8.5 mg/dl Assessment and Plan Assessment and Plan: This is a 52yo female with 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 She underwent paracentesis on 06/28/17 with symptomatic relief. 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 She will be following with Dr. Grijalva [facility]. Plan 1. Fallopian tube carcinoma s/p total hysterectomy and currently on chemotherapy (doxorubicin) -CXR shows small bilateral pleural effusions -serum osmolarity 275 -abdominal US shows RLQ hematoma 7x2x2.5cm and LLQ mild ascites -liver US shows early cirrhotic changes, gallbladder sludge, NL biliary duct caliber -BLE Dopplers negative for DVT -heme/onc consult completed -her constipation is likely functional bowel obstruction 2/2 malignancy and increasing doses of pain meds -repeat abd US on 07/09 showed worsening moderate ascites -palliative care consult completed: plan is to d/c home with hospice -bowel meds increased with positive effect, last BM 07/15 and now having BM q2days -hydromorphone 0.5mg [employer] STOR[employer]ERK, 20min lockout, 0.25 continuous infusion -k-pad prn for bilateral rib pain -zofran 4mg IV q6h prn nausea -promethazine 12.5mg IV q6h prn nausea -pantoprazole 40mg BID -ranitidine 150mg PO BID 2. Hyponatremia, Na 129 on admission, no improvement -stopped IV nss -monitor BMPs 3. Hypervolemia/edema -stopped lasix 20mg IV (lasix-naive, first dose given 07/06) 4. Bilateral pleural effusions, resolving -monitor 5. Constipation, functional bowel obstruction, abd XR negative for SBO -senna 1 tab PO daily -miralax 17g PO BID -colace 100mg PO BID #Diet -regular diet # DVT prophylaxis -hold pharmacologic AC due to abdominal hematoma -SCD -ambulate as tolerated # Discharge planning -Location: home with hospice -Date: TBD Full code Continued [facility] stay due to: inadequate oral pain control, multiple IV medications needed Discharge planning: home, home with home health (hospice)
[2017-07-15 11:34] VITALS: BP 112/75; PULSE 102; TEMP 36.5; O2SAT 100
[2017-07-15] MEDS ORDERED: PRT40 PO (12:45)
[2017-07-15] MEDS ORDERED: DRGTP25 TD (12:45)
[2017-07-15] MEDS ORDERED: SNK PO (12:45)
[2017-07-15] MEDS ORDERED: DLD25PCA IV (12:45)
[2017-07-15] MEDS ORDERED: CLC100 PO (12:45)
[2017-07-15] MEDS ORDERED: MRLP17 PO (12:45)
--- NOTE | 2017-07-15 12:51 | Discharge Instructions ---
Discharge Instructions Date of Service Jul 15, 2017. Admission Reason for Admission: Ascites, Rectus Sheath Hematoma Discharge Discharge Diagnosis / Problem: Ascitis, fallopian tube cancer Discharge Goals Goal(s): Decrease discomfort, Improve function, Increase independence, Improve disease control, Learn about illness, Diagnostic testing, Therapeutic intervention Activity Recommendations Activity Limitations: resume your previous activity Exercise/Sports Limitations: as tolerated . Instructions / Follow-Up Instructions / Follow-Up Patient to be discharged with home hospice Please take dilaudid SENIOR DRAFTER pump 0.25 mg/hr continuous and 0.5 mg q 20 min Prescription sent for fentanyl patch 25 mcg to apply every 3 days Please take meds senna, miralax and colace as directed for constipation Patient to follow up with Dr Malick Alonso as scheduled, Dr Gonsalez in 1 week, Dr Stanley in 1-2 weeks Current Hospital Diet Patient's current hospital diet: Regular Diet Discharge Diet Recommended Diet: Regular Diet Pending Studies Studies pending at discharge: no Medical Emergencies . Who to Call and When: Medical Emergencies: If at any time you feel your situation is an emergency, please call 911 immediately. . Non-Emergent Contact Non-Emergency issues call your: Primary Care Provider Call Non-Emergent contact if: your pain is worsening . . "Provider Documentation" section prepared by Tapan Hargrove. . VTE Core Measure Inpt VTE Proph given/why not?: Babak Pradhan, SCD's
--- NOTE | 2017-07-15 13:13 | Palliative Care Progress Note ---
Palliative Care Progress Note Date of Service Jul 15, 2017. Subjective Met with and patient to do POLST form. It was completed as follows: DNR , comfort measures only, abx with comfort as the goal, trial of IVF if indicated , no feeding tube. Plan is to go home with hospice today.
[2017-07-15 14:47] VITALS: BP 112/75; PULSE 102; TEMP 36.5; O2SAT 100
--- NOTE | 2017-07-15 16:36 | Discharge Summary ---
Discharge Summary Date of Service Jul 15, 2017. Discharge Summary Admission Date: Jul 05, 2017 at 15:44 Discharge Date: Jul 15, 2017 Discharge Disposition: Home with services (home hospice) Principal Diagnosis: Fallopian tube cancer, malignant ascites Immunizations: Have You Had Influenza Vaccine: Yes History of Tetanus Vaccine?: Yes History of Pneumococcal: Unknown History of Hepatitis B Vaccine: Unknown Consultations: Oncology Palliative Care Gastroenterology Medication Reconciliation New Medications: Docusate Sodium (Docusate Sodium) 100 Mg Cap 100 MG PO BID for 30 Days, #60 CAP Fentanyl (Fentanyl) 25 Mcg Tdsy 25 MCG TD Q72H, #10 PATCH Hydromorphone HCl (Hydromorphone HCl) 0.5 Mg/Ml Inj 25 MG IV PRN PRN for Pain for 30 Days Pantoprazole (Pantoprazole Sodium) 40 Mg Tab 40 MG PO BIDM for 30 Days, #60 TAB Polyethylene (Miralax) 17 Gm Pow 17 GM PO BID, #60 PKT Senna (Senna Lax) 8.6 Mg Tab 8.6 MG PO QAM for 30 Days, #30 TAB Continued Medications: Amlodipine Besylate (Amlodipine Besylate) 10 Mg Tab 10 MG PO HS Calcium W/ Magnesium (Calcium & Magnesium) 1 Tab Tab 1 TAB PO DAILY Captopril/Hctz (Capozide) 50 Mg/15 Mg Tab 1 TAB PO BID Loratadine (Claritin) 10 Mg Tab 10 MG PO HS, TAB Multiple Vitamins W/ Minerals (One Daily For Women) 1 Tab Tab 1 TAB PO DAILY Ranitidine (Zantac) 150 Mg Tab 150 MG PO BID, TAB Discontinued Medications: Hydrocodone/Acetaminophen 5MG/325MG ([place] 5MG/325MG) Tab 1 TABLET PO DAILY PRN for Pain, #10 TAB PRN PAIN Discharge Exam Review of Systems: Constitutional: No fever, No chills, No sweats, No weakness Eyes: No worsening of vision, No eye pain, No redness, No discharge ENT: No hearing loss, No unusual epistaxis, No nasal symptoms, No sore throat Respiratory: No cough, No sputum, No wheezing, No shortness of breath Cardiovascular: No chest pain, No orthopnea, No PND, No edema Abdomen: + nausea, No pain, No vomiting, No diarrhea, No constipation Musculoskeletal: + joint pain, No muscle pain, No swelling, No calf pain Genitourinary - Female: No dysuria, No urinary frequency, No urinary urgency , No urinary incontinence Genitourinary - Male: No hematuria, No dysuria, No urinary frequency, No urinary urgency Neurologic: No memory loss, No paralysis, No weakness, No numbness/tingling Psychiatric: No depression symptoms, No anhedonism, No anxiety, No insomnia Endocrine: No fatigue, No excessive thirst Integumentary: No rash, No itch Physical Exam: General Appearance: WD/WN, no apparent distress Eyes: normal inspection, PERRL, EOMI, sclerae normal Neck: supple, no adenopathy, thyroid normal, no JVD Respiratory/Chest: chest non-tender, lungs clear, normal breath sounds, no respiratory distress Cardiovascular: regular rate, rhythm, no edema, no gallop, no JVD Abdomen / GI: normal bowel sounds, no organomegaly, + distended Extremities: normal inspection, no calf tenderness, normal capillary refill , + pedal edema Neurologic/Psychiatric: no motor/sensory deficits, normal mood/affect, normal reflexes, oriented x 3 Hospital Course 52 y/o F with 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 She underwent paracentesis on 06/28/17 with mild symptomatic relief, however she developed a hematoma shortly after that has added to her pain. She is in considerable pain today requiring LOAN UNDERWRITER hydromorphone. She follows with Dr. Varner [facility] [place]. Fallopian tube carcinoma s/p total hysterectomy and currently on chemotherapy ( doxorubicin) -CXR shows small bilateral pleural effusions -abdominal US shows RLQ hematoma 7x2x2.5cm and LLQ mild ascites -liver US shows early cirrhotic changes, gallbladder sludge, NL biliary duct caliber -b/l LE US neg for DVT -heme/onc c/s, pt requesting to see Dr. Grijalva and to not see Dr Varner -likely functional bowel obstruction worsening pain, cont senna and miralax -hydromorphone LOAN UNDERWRITER will try to minimize as pt having worsening constipation at times -repeat abd US on 07/09, worsening moderate ascites, likely from functional bowel obstruction, paracentesis completed on 07/11, likely malignant ascites, lasix stopped -Palliative care c/s, poor prognosis at this time, family discussion with palliative care team, agreeable for home hospice -Discharge home hospice on 07/15 with dilaudid LOAN UNDERWRITER, strict bowel regimen, will f/ u with Dr Lacy Daigle as OP, can likely have port removed if no further tx Hyponatremia, Na 129 on admission, slightly worsening, poor nutrition lasix discontinued, cont to monitor Hypervolemia/ascites/pleural effusions/edema 07/11 repeat paracentesis likely malignant ascited, diuretics will be of no benefit SAAG 0.2 so likely no liver pathology, and US abd r/o IVC thrombosis Agreeable for home hospice Constipation: possibly related to ascites, no s/sx c/w SBO -senna 1 tab PO daily -colace 100mg BID -miralax 17 gm packet BID -Cont PPI BID in addition to zantac 150 mg PO BID DVT prophylaxis -hold pharmacologic AC due to abdominal hematoma -SCD -ambulate as tolerated Full code Total Time Spent: Greater than 30 minutes This includes examination of the patient, discharge planning, medication reconciliation, and communication with other providers. Discharge Instructions Please refer to the electronic Patient Visit Report (Discharge Instructions) for additional information. Additional Copies To Linda Stanley MD; Linda Stanley M.D.
== END 2017-07-15 16:00 | disposition hospice, home (50) | DRG 755 ==
LOC: C.EDB 10:36 → C.4E 15:44 → ENRESERV 16:39
PROVIDERS: ADMIT Internal Medicine; ATTEND Hospitalist
PROC: 0W9G3ZX Drainage of Peritoneal Cavity, Percutaneous Approach, Diagnostic (ICD-10-PCS; principal; 2017-07-11)
DX: C57.00 Malignant neoplasm of unspecified fallopian tube (principal); R18.0 Malignant ascites; C80.0 Disseminated malignant neoplasm, unspecified; J90 Pleural effusion, not elsewhere classified; K92.1 Melena; K92.0 Hematemesis; E87.1 Hypo-osmolality and hyponatremia; Z51.5 Encounter for palliative care; K59.09 Other constipation; M79.81 Nontraumatic hematoma of soft tissue; I10 Essential (primary) hypertension; Z79.899 Other long term (current) drug therapy; Z90.710 Acquired absence of both cervix and uterus; Z82.49 Family history of ischemic heart disease and other diseases of the circulatory system; K91.872 Postprocedural seroma of a digestive system organ or structure following a digestive system procedure; Y83.8 Other surgical procedures as the cause of abnormal reaction of the patient, or of later complication, without mention of misadventure at the time of the procedure; E87.6 Hypokalemia; C56.9 Malignant neoplasm of unspecified ovary; K21.9 Gastro-esophageal reflux disease without esophagitis; Z90.49 Acquired absence of other specified parts of digestive tract; Z85.44 Personal history of malignant neoplasm of other female genital organs